=== PATIENT | male | born 1985 | race Two or more races ===

== ENCOUNTER 2017-03-24 22:51 | Inpatient (IN) | payer OTHER ==
[2017-03-24 23:06] VITALS: BMI 28.3
--- NOTE | 2017-03-24 23:34 | HP ---
COWS - Scale Resting Pulse: 1= SD 81-100 Sweatin=Flushed/Facial Moisture Restless Observation: 5= Unable to Sit Still Pupil Size: 1= Pupils >than Normal Bone or Joint Aches: 4=Acute Joint/Muscle Pain Runny Nose/ Eye Tearin= Nasal Congestion GI Upset > 30mins: 1= Stomach Cramp Tremor Observation: 2= Slight Tremor Visible Yawning Observation: 1= 1-2x During Session Anxiety or Irritability: 2=Irritable/Anxious Goose Flesh Skin: 0=Smooth Skin COWS Score: 20 CIWA Score - CIWA Score Nausea/Vomitin Muscle Tremors: 4-Moderate,w/Arms Extend Anxiety: 4-Mod. Anxious/Guarded Agitation: 4-Moderately Restless Paroxysmal Sweats: 3 Orientation: 1-Uncertain about Date Tacttile Disturbances: 2-Mild Itch/Numbness/Burn Auditory Disturbances: 0-None Visual Disturbances: 0-None Headache: 1-Very Mild CIWA-Ar Total Score: 21 Admission ROS BHS - HPI Chief Complaint: C/O WITHDRAWAL SX'S . SEEKING DETOX TXMENT FOR BENZO AN OPIATE DEPENDENCE. Allergies/Adverse Reactions: Allergies Allergy/AdvReac Type Severity Reaction Status Date / Time No Known Allergies Allergy Verified 03/24/17 23:18 History of Present Illness: 31 Y.O. MALE WITH 2 YEARS HX/O XANAX AND PERCOCET DEPENDENCE SEEKING ADMISSION TO DETOX. THIS IS CLIENT FIRST TIME IN SUBSTANCE ABUSE TXMENT. REFERRED BY HIS MOTHER. DENIES LEGAL ISSUES. DENIES ANY CLEAN TIME. Exam Limitations: No Limitations - Ebola screening Have you traveled outside of the country in the last 21 days: No Have you had contact with anyone from an Ebola affected area: No Have you been sick,other than usual withdrawal symptoms: No Do you have a fever: No - Review of Systems Constitutional: Chills, Loss of Appetite, Malaise, Night Sweats EENT: reports: Dental Problems (DENTAL PAIN) Respiratory: reports: No Symptoms reported Cardiac: reports: No Symptoms Reported GI: reports: Poor Appetite, Poor Fluid Intake, Abdominal cramping : reports: Other (DIFFICULT INTIATING VOID) Musculoskeletal: reports: Back Pain Integumentary: reports: No Symptoms Reported Neuro: reports: Seizure Endocrine: reports: No Symptoms Reported Hematology: reports: No Symptoms Reported Psychiatric: reports: Anxious, Depressed Other Systems: Reviewed and Negative Patient History - Patient Medical History Hx Anemia: No Hx Asthma: No Hx Chronic Obstructive Pulmonary Disease (COPD): No Hx Cancer: No Hx Cardiac Disorders: No Hx Congestive Heart Failure: No Hx Hypertension: No Hx Hypercholesterolemia: No Hx Pacemaker: No HX Cerebrovascular Accident: No Hx Seizures: No Hx Dementia: No Hx Diabetes: No Hx Gastrointestinal Disorders: No Hx Liver Disease: No Hx Genitourinary Disorders: No Hx Sexually Transmitted Disorders: No Hx Renal Disease (ESRD): No Hx Thyroid Disease: No Hx Human Immunodeficiency Virus (HIV): No Hx Hepatitis C: No Hx Depression: Yes (NO TXMENT) Hx Suicide Attempt: No Hx Bipolar Disorder: No Hx Schizophrenia: No Other Medical History: DENIES - Patient Surgical History Past Surgical History: Yes Other Surgical History: R INGUINAL HERNIA REPAIR Anesthesia Reaction: No - PPD History Previous Implant?: No Implanted On Prior [facility] Admission?: No PPD to be Administered?: Yes - Smoking Cessation Smoking history: Current every day smoker Have you smoked in the past 12 months: Yes Aproximately how many cigarettes per day: 5 Cigars Per Day: 0 Hx Chewing Tobacco Use: No Initiated information on smoking cessation: Yes 'Breaking Loose' booklet given: 03/24/17 - Substance & Tx. History Hx Alcohol Use: No Hx Substance Use: Yes Substance Use Type: Opiates (PERCOCET), Tranquilizers (XANAX) Hx Substance Use Treatment: No - Substances Abused Alprazolam (Xanax) Route: Oral Frequency: Daily Amount used: Xanax 20mg Age of first use: 30 Date of Last Use: 03/24/17 Percocet Route: Oral Frequency: Daily Amount used: 100mg Age of first use: 29 Date of Last Use: 03/24/17 Family Disease History - Family Disease History Family History: Denies Admission Physical Exam BHS - Vital Signs Vital Signs: Vital Signs - 24 hr 03/24/17 22:57 Temperature 97.8 F Pulse Rate 92 H Respiratory 18 Rate Blood Pressure 122/53 - Physical General Appearance: Yes: Appropriately Dressed, Mild Distress, Tremorous, Irritable, Sweating HEENTM: Yes: EOMI, Normocephalic, Pharynx Normal, Nasal Congestion Respiratory: Yes: Chest Non-Tender, Lungs Clear, Normal Breath Sounds, No Respiratory Distress, No Accessory Muscle Use Neck: Yes: No masses,lesions,Nodules, Supple, Trachea in good position Breast: Yes: Breast Exam Deferred Cardiology: Yes: Regular Rhythm, S1, S2, Tachycardia Abdominal: Yes: Non Tender, Soft, Protuberent Genitourinary: Yes: Within Normal Limits Back: Yes: Normal Inspection Musculoskeletal: Yes: full range of Motion, Gait Steady Extremities: Yes: Normal Capillary Refill, Normal Range of Motion, Non-Tender, Tremors Neurological: Yes: Alert, Motor Strength 5/5 Integumentary: Yes: Normal Color, Warm, Moist Lymphatic: Yes: Within Normal Limits - Diagnostic (1) Opioid dependence with withdrawal Current Visit: Yes Status: Chronic (2) Sedative, hypnotic or anxiolytic dependence with withdrawal, uncomplicated Current Visit: Yes Status: Chronic (3) Nicotine dependence Current Visit: Yes Status: Chronic Qualifiers: Nicotine product type: cigarettes Substance use status: uncomplicated Qualified Code(s): F17.210 - Nicotine dependence, cigarettes, uncomplicated Cleared for Admission [facility] - Detox or Rehab [facility] Level of Care: Medically Managed Detox Regimen/Protocol: Methadone/Valium [facility] Breath Alcohol Content Breath Alcohol Content: 0 Urine Drug Screen - Results Drug Screen Negative: No Urine Drug Screen Results: BZO-Benzodiazepines, OXY-Oxycodone
[2017-03-25] MEDS ORDERED: IBUPROFEN 400 MG TABLET (FP) PO PRN (00:32)
[2017-03-25] MEDS ORDERED: P-EPHED 60MG/TRIPROLIDI 2.5MG TABLET PO PRN (00:32)
[2017-03-25] MEDS ORDERED: NICOTINE POLACRILEX 2 MG GUM BC PRN (00:32)
[2017-03-25] MEDS ORDERED: LOPERAMIDE HCL 2 MG CAPSULE PO PRN (00:32)
[2017-03-25] MEDS ORDERED: METHADONE HCL 10 MG TABLET (FOR DETOX USE ONLY) PO ONE ×3 (00:32→23:00)
[2017-03-25] MEDS ORDERED: diazePAM 5 MG TABLET PO ONE (00:32)
[2017-03-25] MEDS ORDERED: diazePAM 5 MG TABLET PO PRN (00:32)
[2017-03-25] MEDS ORDERED: MENTHOL/PHENOL 1 EACH UD MM PRN (00:32)
[2017-03-25] MEDS ORDERED: ACETAMINOPHEN 325 MG TABLET (FP) PO PRN (00:32)
[2017-03-25] MEDS ORDERED: MAGNESIUM CITRATE 300 ML BOTTLE PO PRN (00:32)
[2017-03-25] MEDS ORDERED: MAGNESIUM HYDROX 2400MG/30ML ORAL SUSPENSION 30 ML CUP PO PRN (00:32)
[2017-03-25] MEDS ORDERED: MAG HYDROX/AL HYDROX/SIMETH 30 ML UNIT-DOSE CUP PO PRN (00:32)
[2017-03-25] MEDS ORDERED: guaiFENesin/D-METHORPHAN HB 10 ML UNIT-DOSE CUPS PO PRN (00:32)
[2017-03-25] MEDS: hydrOXYzine PAMOATE 50 MG CAPSULE (FP) PO PRN (03:18)
[2017-03-25] MEDS: diazePAM 5 MG TABLET PO SCH ×2 (05:42→15:00)
[2017-03-25 10:48] LABS: URINE APPEARANCE CLEAR; URINE BILIRUBIN NEGATIVE (NEGATIVE); URINE BLOOD NEGATIVE (NEGATIVE); URINE COLOR LTYELLOW; URINE GLUCOSE (UA) NEGATIVE (NEGATIVE); URINE KETONE NEGATIVE (NEGATIVE); URINE LEUK ESTERASE NEGATIVE (NEGATIVE); URINE NITRITE NEGATIVE (NEGATIVE); URINE PROTEIN NEGATIVE (NEGATIVE); URINE UROBILINOGEN NEGATIVE mg/dL (0.2-1.0)
[2017-03-25] MEDS: PRENATAL VITAMINS W/ FOLIC ACID TABLET (FP) PO SCH (11:00)
[2017-03-25] MEDS: NICOTINE 14 MG/24 HOURS TOPICAL PATCH TD SCH (11:00)
--- NOTE | 2017-03-25 11:16 | PN ---
[facility] CIWA - CIWA Score Nausea/Vomitin Muscle Tremors: 3 Anxiety: 3 Agitation: 3 Paroxysmal Sweats: 1-Minimal Palms Moist Orientation: 0-Oriented Tacttile Disturbances: 1-Very Mild Itch/Numbness Auditory Disturbances: 1-Very Mild Visual Disturbances: 0-None Headache: 2-Mild CIWA-Ar Total Score: 17 BHS COWS - Scale Resting Pulse: 0= [place] 80 or Below Sweatin= Chills/Flushing Restless Observation: 3= Extraneous Movement Pupil Size: 1= Pupils >than Normal Bone or Joint Aches: 2= Severe Diffuse Aches Runny Nose/ Eye Tearin= Runny Nose/Eyes GI Upset > 30mins: 2= Nausea/Diarrhea Tremor Observation of Outstretched Hands: 2= Slight Tremor Visible Yawning Observation: 1= 1-2x During Session Anxiety or Irritability: 2=Irritable/Anxious Goose Flesh Skin: 0=Smooth Skin COWS Score: 16 S Progress Note (SOAP) Subjective: alert,irritable,anxious,interrupted sleep,tremor,pain in the body and back Objective: 03/25/17 11:15 Vital Signs Temperature 97.5 F L 03/25/17 09:45 Pulse Rate 73 03/25/17 09:45 Respiratory Rate 20 03/25/17 09:45 Blood Pressure 116/68 03/25/17 09:45 O2 Sat by Pulse Oximetry (%) Laboratory Last Values Urine Color Ltyellow 03/25/17 08:00 Urine Appearance Clear 03/25/17 08:00 Urine pH 5.0 (5.0-8.0) 03/25/17 08:00 Ur Specific [place] 1.020 (1.001-1.035) 03/25/17 08:00 Urine Protein Negative (NEGATIVE) 03/25/17 08:00 Urine Glucose (UA) Negative (NEGATIVE) 03/25/17 08:00 Urine Ketones Negative (NEGATIVE) 03/25/17 08:00 Urine Blood Negative (NEGATIVE) 03/25/17 08:00 Urine Nitrite Negative (NEGATIVE) 03/25/17 08:00 Urine Bilirubin Negative (NEGATIVE) 03/25/17 08:00 Urine Urobilinogen Negative mg/dL (0.2-1.0) 03/25/17 08:00 labs pending Assessment: 03/25/17 11:15 withdrawal symptom Plan: continue detox
[2017-03-26] MEDS: diazePAM 5 MG TABLET PO SCH ×4 (00:08→22:20)
[2017-03-26] MEDS: THIAMINE HCL 100 MG TABLET (FP) PO SCH ×2 (00:08→22:20)
[2017-03-26] MEDS ORDERED: ALBUTEROL SO4 2.5/IPRATROPIUM 0.5 INH SOL 3 ML VIAL.NEB. NEB PRN (02:31)
--- NOTE | 2017-03-26 08:09 | CONSULT ---
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 Refer to addiction counselor's note for further information Medical History: Significantt for history of right inguinal herna repair. Smoked 5 cigarettes daily Psychiatric History: Denies history of previous psychiatric treatment. However reports taking Xanax 2 mg po HS prescribed by his primary care physician for insomnia. Physical/Sexual Abuse/Trauma History: Denies history of verbal, physical or seual abuse as well as DV relationship Additional Comment: Reports history of 2 previous misdemeanor arrests. Denies being on probation at present Mental Status Exam - Mental Status Exam Alert and Oriented to: Time, Place, Person Cognitive Function: Fair Patient Appearance: Well Groomed Mood: Hopeful, Euthymic Patient Behavior: Cooperative Speech Pattern: Clear Voice Loudness: Normal Thought Process: Intact, Goal Oriented Thought Disorder: Not Present Hallucinations: Denies Suicidal Ideation: Denies Homicidal Ideation: Denies Insight/Judgement: Poor Sleep: Poorly Appetite: Good Muscle strength/Tone: Normal Gait/Station: Normal Psychiatric Findings - Problem List ([place] 1, 2,3) (1) Substance-induced sleep disorder Current Visit: Yes Status: Acute (2) Opioid dependence with withdrawal Current Visit: Yes Status: Chronic (3) Sedative, hypnotic or anxiolytic dependence with withdrawal, uncomplicated Current Visit: Yes Status: Chronic (4) Nicotine dependence Current Visit: Yes Status: Chronic Qualifiers: Nicotine product type: cigarettes Substance use status: uncomplicated Qualified Code(s): F17.210 - Nicotine dependence, cigarettes, uncomplicated - Initial Treatment Plan Initial Treatment Plan: 1) Start Ambien 10 mg po HS prn for insomnia. 2) Continue inpatient detoxification
--- NOTE | 2017-03-26 09:10 | PN ---
S CIWA - CIWA Score Nausea/Vomitin-No Nausea/No Vomiting Muscle Tremors: 4-Moderate,w/Arms Extend Anxiety: 3 Agitation: 2 Paroxysmal Sweats: 1-Minimal Palms Moist Orientation: 0-Oriented Tacttile Disturbances: 1-Very Mild Itch/Numbness Auditory Disturbances: 0-None Visual Disturbances: 0-None Headache: 0-None Present CIWA-Ar Total Score: 11 BHS COWS - Scale Resting Pulse: 0= [place] 80 or Below Sweatin= Chills/Flushing Restless Observation: 1= Difficult to Sit Still Pupil Size: 0= Normal to Room Light Bone or Joint Aches: 2= Severe Diffuse Aches Runny Nose/ Eye Tearin= Nasal Congestion GI Upset > 30mins: 1= Stomach Cramp Tremor Observation of Outstretched Hands: 2= Slight Tremor Visible Yawning Observation: 2= >3x During Session Anxiety or Irritability: 2=Irritable/Anxious Goose Flesh Skin: 0=Smooth Skin COWS Score: 12 S Progress Note (SOAP) Subjective: tremor anxiety sweat general body ache irritable Objective: 03/26/17 09:21 Vital Signs Temperature 97.7 F 03/26/17 06:00 Pulse Rate 66 03/26/17 06:00 Respiratory Rate 18 03/26/17 06:00 Blood Pressure 105/66 03/26/17 06:00 O2 Sat by Pulse Oximetry (%) Laboratory Last Values Urine Color Ltyellow 03/25/17 08:00 Urine Appearance Clear 03/25/17 08:00 Urine pH 5.0 (5.0-8.0) 03/25/17 08:00 Ur Specific [place] 1.020 (1.001-1.035) 03/25/17 08:00 Urine Protein Negative (NEGATIVE) 03/25/17 08:00 Urine Glucose (UA) Negative (NEGATIVE) 03/25/17 08:00 Urine Ketones Negative (NEGATIVE) 03/25/17 08:00 Urine Blood Negative (NEGATIVE) 03/25/17 08:00 Urine Nitrite Negative (NEGATIVE) 03/25/17 08:00 Urine Bilirubin Negative (NEGATIVE) 03/25/17 08:00 Urine Urobilinogen Negative mg/dL (0.2-1.0) 03/25/17 08:00 Ur Leukocyte Esterase Negative (NEGATIVE) 03/25/17 08:00 Hepatitis C Antibody 0.1 s/co ratio (0.0-0.9) 03/25/17 08:00 HIV 1&2 Antibody Screen Negative 03/25/17 08:00 HIV P24 Antigen Negative 03/25/17 08:00 lab noted Assessment: 03/26/17 09:21 withdrawal sx Plan: continue detox
[2017-03-26] MEDS ORDERED: METHADONE HCL 10 MG TABLET (FOR DETOX USE ONLY) PO SCH (10:00)
[2017-03-26 10:47] LABS: CHLORIDE 102 mmol/L (98-107); SODIUM 137 mmol/L (136-145)
[2017-03-26] MEDS: PRENATAL VITAMINS W/ FOLIC ACID TABLET (FP) PO SCH (10:47)
[2017-03-26] MEDS: NICOTINE 14 MG/24 HOURS TOPICAL PATCH TD SCH (10:48)
[2017-03-26 10:57] LABS: ALBUMIN 3.4 g/dl (3.4-5.0); ALK PHOS 59 U/L (45-117); ANION GAP 6 (8-16); BILIRUBIN,TOTAL 0.4 mg/dL (0.2-1.0); BLOOD UREA NITROGEN 22 mg/dL (7-18); CALCIUM 8.2 mg/dL (8.5-10.1); CO2 29 mmol/L (21-32); GLUCOSE,RANDOM 108 mg/dL (74-106); SGOT/AST 12 U/L (15-37); SGPT/ALT 33 U/L (12-78); TOT PROT 6.3 g/dl (6.4-8.2)
[2017-03-26 11:30] LABS: HEMATOCRIT 42.7 % (35.4-49); HEMOGLOBIN 14.5 GM/dL (11.7-16.9); MCH 31.2 pg (25.7-33.7); MCHC 33.9 g/dl (32.0-35.9); MEAN PLT VOLUME 8.5 fl (7.5-11.1); PLATELET COUNT 191 K/MM3 (134-434); RBC 4.65 M/mm3 (4.00-5.60); RDW 12.9 % (11.9-15.9); WHITE BLOOD COUNT 7.6 K/mm3 (4.0-10.0)
[2017-03-26] MEDS: ZOLPIDEM TARTRATE 5 MG TABLET PO PRN (22:20)
--- NOTE | 2017-03-27 10:07 | PN ---
BHS Progress Note (SOAP) Subjective: nausea, anxiety, tremors, insomnia, Objective: 03/27/17 10:07 Vital Signs - 8 hr 03/27/17 03/27/17 03:30 06:16 Temperature 97.7 F Pulse Rate 74 Respiratory 18 18 Rate Blood Pressure 120/61 Laboratory Tests 03/25/17 03/25/17 03/25/17 08:00 08:00 08:00 WBC RBC Hgb Hct MCV MCH MCHC RDW Plt Count MPV Sodium Potassium Chloride Carbon Dioxide Anion Gap BUN Creatinine Creat Clearance w eGFR Random Glucose Calcium Total Bilirubin AST ALT Alkaline Phosphatase Total Protein Albumin Urine Color Ltyellow Urine Appearance Clear Urine pH 5.0 Ur Specific [place] 1.020 Urine Protein Negative Urine Glucose (UA) Negative Urine Ketones Negative Urine Blood Negative Urine Nitrite Negative Urine Bilirubin Negative Urine Urobilinogen Negative Ur Leukocyte Esterase Negative RPR Titer Hepatitis C Antibody 0.1 HIV 1&2 Antibody Screen Negative HIV P24 Antigen Negative 03/26/17 03/26/17 03/26/17 06:10 06:10 06:10 WBC 7.6 RBC 4.65 Hgb 14.5 Hct 42.7 MCV 92.0 MCH 31.2 MCHC 33.9 RDW 12.9 Plt Count 191 MPV 8.5 Sodium 137 Potassium 4.0 Chloride 102 Carbon Dioxide 29 Anion Gap 6 L BUN 22 H Creatinine 1.0 Creat Clearance w eGFR > 60 Random Glucose 108 H Calcium 8.2 L Total Bilirubin 0.4 AST 12 L ALT 33 Alkaline Phosphatase 59 Total Protein 6.3 L Albumin 3.4 Urine Color Urine Appearance Urine pH Ur Specific [place] Urine Protein Urine Glucose (UA) Urine Ketones Urine Blood Urine Nitrite Urine Bilirubin Urine Urobilinogen Ur Leukocyte Esterase RPR Titer Nonreactive Hepatitis C Antibody HIV 1&2 Antibody Screen HIV P24 Antigen Assessment: 03/27/17 10:07 withdraawl sx, cont detox, fluids, encourage ambulation
[2017-03-27] MEDS: METHADONE HCL 5 MG TABLET (FOR DETOX USE ONLY) PO SCH (10:34)
[2017-03-27] MEDS: PRENATAL VITAMINS W/ FOLIC ACID TABLET (FP) PO SCH (10:35)
[2017-03-27] MEDS: diazePAM 5 MG TABLET PO SCH ×2 (10:35→22:25)
[2017-03-27] MEDS: NICOTINE 14 MG/24 HOURS TOPICAL PATCH TD SCH (10:56)
[2017-03-27] MEDS: THIAMINE HCL 100 MG TABLET (FP) PO SCH (22:26)
[2017-03-27] MEDS: ZOLPIDEM TARTRATE 5 MG TABLET PO PRN (22:26)
--- NOTE | 2017-03-28 01:57 | EKG ---
Test Reason : Blood Pressure : / mmHG Vent. Rate : 073 BPM Atrial Rate : 073 BPM P-R Int : 144 ms QRS Dur : 092 ms QT Int : 388 ms P-R-T Axes : 043 012 018 degrees QTc Int : 427 ms NORMAL SINUS RHYTHM NORMAL ECG NO PREVIOUS ECGS AVAILABLE Confirmed by JENA DIAZ MD ([id number]) on 03/28/2017 1:56:59 AM Referred By: SHANEL CASTILLO Confirmed By:JENA DIAZ MD
[2017-03-28] MEDS: PRENATAL VITAMINS W/ FOLIC ACID TABLET (FP) PO SCH (10:14)
[2017-03-28] MEDS: METHADONE HCL 5 MG TABLET (FOR DETOX USE ONLY) PO SCH (10:15)
[2017-03-28] MEDS: hydrOXYzine PAMOATE 50 MG CAPSULE (FP) PO PRN (10:15)
[2017-03-28] MEDS: diazePAM 5 MG TABLET PO SCH ×2 (10:15→22:11)
[2017-03-28] MEDS: NICOTINE 14 MG/24 HOURS TOPICAL PATCH TD SCH (10:15)
--- NOTE | 2017-03-28 11:36 | PN ---
BHS Progress Note (SOAP) Subjective: Lightheadedness, stomach ache, body ache, interrupted sleep Objective: 03/28/17 11:34 Last Vital Signs Temp Pulse Resp BP Pulse Ox 98.2 F 96 H 18 130/91 03/28/17 10:21 03/28/17 10:21 03/28/17 10:21 03/28/17 10:21 Laboratory Tests 03/25/17 03/25/17 03/25/17 08:00 08:00 08:00 WBC RBC Hgb Hct MCV MCH MCHC RDW Plt Count MPV Sodium Potassium Chloride Carbon Dioxide Anion Gap BUN Creatinine Creat Clearance w eGFR Random Glucose Calcium Total Bilirubin AST ALT Alkaline Phosphatase Total Protein Albumin Urine Color Ltyellow Urine Appearance Clear Urine pH 5.0 Ur Specific [place] 1.020 Urine Protein Negative Urine Glucose (UA) Negative Urine Ketones Negative Urine Blood Negative Urine Nitrite Negative Urine Bilirubin Negative Urine Urobilinogen Negative Ur Leukocyte Esterase Negative RPR Titer Hepatitis C Antibody 0.1 HIV 1&2 Antibody Screen Negative HIV P24 Antigen Negative 03/26/17 03/26/17 03/26/17 06:10 06:10 06:10 WBC 7.6 RBC 4.65 Hgb 14.5 Hct 42.7 MCV 92.0 MCH 31.2 MCHC 33.9 RDW 12.9 Plt Count 191 MPV 8.5 Sodium 137 Potassium 4.0 Chloride 102 Carbon Dioxide 29 Anion Gap 6 L BUN 22 H Creatinine 1.0 Creat Clearance w eGFR > 60 Random Glucose 108 H Calcium 8.2 L Total Bilirubin 0.4 AST 12 L ALT 33 Alkaline Phosphatase 59 Total Protein 6.3 L Albumin 3.4 Urine Color Urine Appearance Urine pH Ur Specific [place] Urine Protein Urine Glucose (UA) Urine Ketones Urine Blood Urine Nitrite Urine Bilirubin Urine Urobilinogen Ur Leukocyte Esterase RPR Titer Nonreactive Hepatitis C Antibody HIV 1&2 Antibody Screen HIV P24 Antigen Labs noted Assessment: 03/28/17 11:36 Withdrawal symptoms Plan: Continue detox
[2017-03-28] MEDS ORDERED: diphenhydrAMINE HCL 50 MG CAPSULE PO PRN (12:34)
[2017-03-28] MEDS: THIAMINE HCL 100 MG TABLET (FP) PO SCH (22:11)
[2017-03-28] MEDS: ZOLPIDEM TARTRATE 5 MG TABLET PO PRN (22:11)
[2017-03-28] MEDS ORDERED: BACITRACIN 0.9 GM PACKET TP ONE (22:53)
--- NOTE | 2017-03-28 22:59 | PN ---
JESSICA Progress Note Note: received nurse call that the patient has a lump in his back needed to be seen right lower back 5 mm round erythema none tender immobile cyst noted, no pus no bleed inflammation cyst warm compression qid bacitracin oint qid recommend hand washing and keep area clean avoid irritation
[2017-03-29] MEDS ORDERED: diazePAM 5 MG TABLET PO SCH (10:00)
[2017-03-29] MEDS ORDERED: METHADONE HCL 10 MG TABLET (FOR DETOX USE ONLY) PO SCH (10:00)
--- NOTE | 2017-03-29 10:09 | PN ---
BHS Progress Note (SOAP) Subjective: interrupted sleep, sweats , wants a flu vax Objective: 03/29/17 10:07 Vital Signs Temperature 98.1 F 03/29/17 06:05 Pulse Rate 62 03/29/17 06:05 Respiratory Rate 16 03/29/17 06:05 Blood Pressure 124/79 03/29/17 06:05 O2 Sat by Pulse Oximetry (%) Vital Signs Temperature 98.1 F 03/29/17 06:05 Pulse Rate 62 03/29/17 06:05 Respiratory Rate 16 03/29/17 06:05 Blood Pressure 124/79 03/29/17 06:05 O2 Sat by Pulse Oximetry (%) Laboratory Tests 03/25/17 03/25/17 03/25/17 08:00 08:00 08:00 WBC RBC Hgb Hct MCV MCH MCHC RDW Plt Count MPV Sodium Potassium Chloride Carbon Dioxide Anion Gap BUN Creatinine Creat Clearance w eGFR Random Glucose Calcium Total Bilirubin AST ALT Alkaline Phosphatase Total Protein Albumin Urine Color Ltyellow Urine Appearance Clear Urine pH 5.0 Ur Specific [place] 1.020 Urine Protein Negative Urine Glucose (UA) Negative Urine Ketones Negative Urine Blood Negative Urine Nitrite Negative Urine Bilirubin Negative Urine Urobilinogen Negative Ur Leukocyte Esterase Negative RPR Titer Hepatitis C Antibody 0.1 HIV 1&2 Antibody Screen Negative HIV P24 Antigen Negative 03/26/17 03/26/17 03/26/17 06:10 06:10 06:10 WBC 7.6 RBC 4.65 Hgb 14.5 Hct 42.7 MCV 92.0 MCH 31.2 MCHC 33.9 RDW 12.9 Plt Count 191 MPV 8.5 Sodium 137 Potassium 4.0 Chloride 102 Carbon Dioxide 29 Anion Gap 6 L BUN 22 H Creatinine 1.0 Creat Clearance w eGFR > 60 Random Glucose 108 H Calcium 8.2 L Total Bilirubin 0.4 AST 12 L ALT 33 Alkaline Phosphatase 59 Total Protein 6.3 L Albumin 3.4 Urine Color Urine Appearance Urine pH Ur Specific [place] Urine Protein Urine Glucose (UA) Urine Ketones Urine Blood Urine Nitrite Urine Bilirubin Urine Urobilinogen Ur Leukocyte Esterase RPR Titer Nonreactive Hepatitis C Antibody HIV 1&2 Antibody Screen HIV P24 Antigen pt aox3 in nad Assessment: 03/29/17 10:08 withdrawal sx's Plan: cont. detox increase fluids flu vax d/c in am
[2017-03-29] MEDS: NICOTINE 14 MG/24 HOURS TOPICAL PATCH TD SCH (10:10)
[2017-03-29] MEDS: PRENATAL VITAMINS W/ FOLIC ACID TABLET (FP) PO SCH (10:10)
[2017-03-29] MEDS: hydrOXYzine PAMOATE 50 MG CAPSULE (FP) PO PRN (10:10)
[2017-03-29] MEDS ORDERED: FLU VACCINE QUAD 60 MCG/0.5 ML (MDV 17-18) IM ONE (11:00)
[2017-03-29 11:03] VITALS: BP 125/85; PULSE 96; TEMP 97.9
--- NOTE | 2017-03-29 11:04 | DS ---
[facility] Detox Discharge Summary Admission Date: 03/24/17 Discharge Date: 03/29/17 - History Present History: Opioid Dependence, Sedative Dependence - Physical Exam Results Vital Signs: Vital Signs Temperature 98.1 F 03/29/17 06:05 Pulse Rate 62 03/29/17 06:05 Respiratory Rate 16 03/29/17 06:05 Blood Pressure 124/79 03/29/17 06:05 O2 Sat by Pulse Oximetry (%) - Treatment Hospital Course: Detox Protocol Followed - Diagnosis (1) Opioid dependence with withdrawal Current Visit: Yes Status: Chronic (2) Sedative, hypnotic or anxiolytic dependence with withdrawal, uncomplicated Current Visit: Yes Status: Chronic (3) Nicotine dependence Current Visit: Yes Status: Chronic Qualifiers: Nicotine product type: cigarettes Substance use status: uncomplicated Qualified Code(s): F17.210 - Nicotine dependence, cigarettes, uncomplicated - AMA Did Patient Leave Against Medical Advice: Yes (feels good does'nt want to stay.)
[2017-03-30] MEDS ORDERED: METHADONE HCL 5 MG TABLET (FOR DETOX USE ONLY) PO SCH (06:00)
== END 2017-03-29 11:30 | disposition left against medical advice (07) | DRG 770 ==
LOC: YASAS 22:51 → Y6N 23:35
PROVIDERS: ADMIT Internal Medicine; ATTEND Internal Medicine
PROC: HZ2ZZZZ Detoxification Services for Substance Abuse Treatment (ICD-10-PCS; principal; 2017-03-24)
DX: F11.23 Opioid dependence with withdrawal (principal); F13.230 Sedative, hypnotic or anxiolytic dependence with withdrawal, uncomplicated; F17.210 Nicotine dependence, cigarettes, uncomplicated; F19.282 Other psychoactive substance dependence with psychoactive substance-induced sleep disorder; R00.0 Tachycardia, unspecified; L72.9 Follicular cyst of the skin and subcutaneous tissue, unspecified
CPT/HCPCS: 36415; 80053; 81003; 85027; 86593; 86803; 87389; 90688; 93005; 93010; G0008

== ENCOUNTER 2017-06-10 11:44 | Inpatient (IN) | payer OTHER ==
[2017-06-10 17:01] VITALS: BMI 29.0
--- NOTE | 2017-06-10 19:17 | HP ---
COWS - Scale Resting Pulse: 1= [place] 81-100 Sweatin=Flushed/Facial Moisture Restless Observation: 3= Extraneous Movement Pupil Size: 2= Moderately Dilated Bone or Joint Aches: 2= Severe Diffuse Aches Runny Nose/ Eye Tearin= Runny Nose/Eyes GI Upset > 30mins: 3= Vomiting/Diarrhea Tremor Observation: 2= Slight Tremor Visible Yawning Observation: 2= >3x During Session Anxiety or Irritability: 2=Irritable/Anxious Goose Flesh Skin: 0=Smooth Skin COWS Score: 21 Admission ROS S - HPI Chief Complaint: I NEED HELP TO STOP USING PERCOCET AND XANAX Allergies/Adverse Reactions: Allergies Allergy/AdvReac Type Severity Reaction Status Date / Time No Known Allergies Allergy Verified 06/10/17 17:01 History of Present Illness: THIS 32 YEARS OLD MALE WITH PERCOCET AND XANAX,SEEKING DETOX,WITHDRAWAL SYMPTOM, LAST DETOX [facility] 03/24/17 TO 03/29/17 INSOMNIA NICOTINE DEPENDENCE NO SIGNIFICANT PERIOD OF SOBRIETY WEIGHT LOSS Exam Limitations: No Limitations - Ebola screening Have you traveled outside of the country in the last 21 days: No (N) Have you had contact with anyone from an Ebola affected area: No Have you been sick,other than usual withdrawal symptoms: No Do you have a fever: No - Review of Systems Constitutional: No Symptoms Reported, Malaise, Night Sweats, Changes in sleep, Unintentional Wgt. Loss EENT: reports: Tearing, Nose Congestion Respiratory: reports: No Symptoms reported Cardiac: reports: Chest Pain GI: reports: Diarrhea, Nausea, Vomiting, Abdominal cramping : reports: No Symptoms Reported Musculoskeletal: reports: Back Pain, Joint Pain, Muscle Pain Integumentary: reports: Dryness Neuro: reports: Headache, Tremors Endocrine: reports: No Symptoms Reported Hematology: reports: No Symptoms Reported Psychiatric: reports: No Sypmtoms Reported, Judgement Intact, Mood/Affect Appropiate, Orientated x3 (INSOMNIA) Patient History - Patient Medical History Hx Anemia: No Hx Asthma: No Hx Chronic Obstructive Pulmonary Disease (COPD): No Hx Cancer: No Hx Cardiac Disorders: No Hx Congestive Heart Failure: No Hx Hypertension: No Hx Hypercholesterolemia: No Hx Pacemaker: No HX Cerebrovascular Accident: No Hx Seizures: No Hx Dementia: No Hx Diabetes: No Hx Gastrointestinal Disorders: No Hx Liver Disease: No Hx Genitourinary Disorders: No Hx Sexually Transmitted Disorders: No Hx Renal Disease (ESRD): No Hx Thyroid Disease: No Hx Human Immunodeficiency Virus (HIV): No (LAST [facility] 01/22/17) Hx Hepatitis C: No Hx Depression: Yes (NO TREATMENT) Hx Suicide Attempt: No Hx Bipolar Disorder: No Hx Schizophrenia: No Other Medical History: NO SUIDAL,NO HOMICIDAL - Patient Surgical History Past Surgical History: Yes Other Surgical History: R INGUINAL HERNIA REPAIR aT AGE OF 76 YEARS OLD Anesthesia Reaction: No - PPD History Previous Implant?: Yes Documented Results: Negative w/proof Date: 03/27/17 Results: 0 MM PPD to be Administered?: No - Smoking Cessation Smoking history: Current every day smoker Have you smoked in the past 12 months: Yes Aproximately how many cigarettes per day: 20 Cigars Per Day: 0 Hx Chewing Tobacco Use: No Initiated information on smoking cessation: Yes 'Breaking Loose' booklet given: 06/10/17 - Substance & Tx. History Hx Alcohol Use: No Hx Substance Use: Yes Substance Use Type: Opiates, Tranquilizers Hx Substance Use Treatment: Yes ([facility] 03/24/17 TO 03/29/17) - Substances Abused PERCOCET Route: Oral Frequency: Daily Amount used: 30/10MG PILLS 5 TABS Age of first use: 31 Date of Last Use: 06/10/17 XANAX Route: Oral Frequency: Daily Amount used: 1 PILL 2 MGS Age of first use: 31 Date of Last Use: 06/09/17 Family Disease History - Family Disease History Family History: Denies Admission Physical Exam [facility] - Vital Signs Vital Signs: Vital Signs - 24 hr 06/10/17 18:46 Temperature 98.7 F Pulse Rate 87 Respiratory 18 Rate Blood Pressure 158/92 - Physical General Appearance: Yes: Moderate Distress, Tremorous, Irritable, Sweating, Anxious HEENTM: Yes: Normocephalic, KSENIA, Pharynx Normal Respiratory: Yes: Lungs Clear, Normal Breath Sounds, No Respiratory Distress Neck: Yes: Within Normal Limits, Supple, Trachea in good position Breast: Yes: Within Normal Limits Cardiology: Yes: Within Normal Limits, Regular Rhythm, Regular Rate, S1, S2 Abdominal: Yes: Normal Bowel Sounds, Non Tender, Flat, Soft, Organomegaly Genitourinary: Yes: Within Normal Limits Back: Yes: Normal Inspection, Muscle Spasm Musculoskeletal: Yes: Within Normal Limits, full range of Motion, Back pain, Joint Stiffness, Muscle Pain Extremities: Yes: Within Normal Limits, Tremors Neurological: Yes: casting assistant II-XII NML intact, Alert, Motor Strength 5/5 Integumentary: Yes: Within Normal Limits, Dry Lymphatic: Yes: Within Normal Limits - Diagnostic (1) Opioid dependence with withdrawal Current Visit: No Status: Chronic (2) Substance-induced sleep disorder Current Visit: No Status: Acute (3) Nicotine dependence Current Visit: No Status: Chronic Qualifiers: Nicotine product type: cigarettes Substance use status: uncomplicated Qualified Code(s): F17.210 - Nicotine dependence, cigarettes, uncomplicated (4) Sedative, hypnotic or anxiolytic dependence with withdrawal, uncomplicated Current Visit: No Status: Chronic Cleared for Admission [facility] - Detox or Rehab [facility] Level of Care: Medically Managed Detox Regimen/Protocol: Methadone [facility] Breath Alcohol Content Breath Alcohol Content: 0 Urine Drug Screen - Results Drug Screen Negative: No Urine Drug Screen Results: OXY-Oxycodone
[2017-06-10] MEDS ORDERED: hydrOXYzine PAMOATE 25 MG CAPSULE (FP) PO PRN (19:33)
[2017-06-10] MEDS ORDERED: MENTHOL/PHENOL 1 EACH UD MM PRN (19:33)
[2017-06-10] MEDS ORDERED: ACETAMINOPHEN 325 MG TABLET (FP) PO PRN (19:33)
[2017-06-10] MEDS ORDERED: LOPERAMIDE HCL 2 MG CAPSULE PO PRN (19:33)
[2017-06-10] MEDS ORDERED: P-EPHED 60MG/TRIPROLIDI 2.5MG TABLET PO PRN (19:33)
[2017-06-10] MEDS ORDERED: guaiFENesin/D-METHORPHAN HB 10 ML UNIT-DOSE CUPS PO PRN (19:33)
[2017-06-10] MEDS ORDERED: MAG HYDROX/AL HYDROX/SIMETH 30 ML UNIT-DOSE CUP PO PRN (19:33)
[2017-06-10] MEDS ORDERED: IBUPROFEN 400 MG TABLET (FP) PO PRN (19:33)
[2017-06-10] MEDS ORDERED: METHADONE HCL 10 MG TABLET (FOR DETOX USE ONLY) PO ONE ×2 (19:33→23:00)
[2017-06-10] MEDS ORDERED: MAGNESIUM CITRATE 300 ML BOTTLE PO PRN (19:33)
[2017-06-10] MEDS ORDERED: NICOTINE POLACRILEX 2 MG GUM BC PRN (19:33)
[2017-06-10] MEDS ORDERED: MAGNESIUM HYDROX 2400MG/30ML ORAL SUSPENSION 30 ML CUP PO PRN (19:33)
[2017-06-10] MEDS: diazePAM 5 MG TABLET PO PRN (20:38)
[2017-06-10] MEDS: THIAMINE HCL 100 MG TABLET (FP) PO SCH (22:40)
[2017-06-11] MEDS: diazePAM 5 MG TABLET PO PRN ×3 (07:05→21:50)
--- NOTE | 2017-06-11 08:07 | CONSULT ---
[facility] Psychiatric Consult - Data Date of interview: 06/11/17 Admission source: Self-referred Identifying data: Mr Andres is a 31 years old single Citizen Of [place] male , father of a 10 years old daughter, unemployed, domiciled living with his mother seeking detox treatment for percocet and xanax Substance Abuse History: Reports history of percocet and xanax use. Refer to addiction counselor's note for further information Medical History: Significant for history of surgery for right inguinal herna repair. Smoked 5 cigarettes daily Psychiatric History: Denies history of previous psychiatric treatment. Physical/Sexual Abuse/Trauma History: Denies history of verbal, physical or sexual abuse as well as DV relationship. No service Additional Comment: Reports history of 2 previous misdemeanor arrests. Denies being on probation at present Mental Status Exam - Mental Status Exam Alert and Oriented to: Time, Place, Person Patient Appearance: Well Groomed Mood: Hopeful, Euthymic Patient Behavior: Cooperative Speech Pattern: Clear Voice Loudness: Normal Thought Process: Intact, Goal Oriented Thought Disorder: Not Present Hallucinations: Denies Suicidal Ideation: Denies Homicidal Ideation: Denies Insight/Judgement: Poor Sleep: Poorly Appetite: Fair Muscle strength/Tone: Normal Gait/Station: Normal Psychiatric Findings - Problem List ([place] 1, 2,3) (1) Substance-induced sleep disorder Current Visit: Yes Status: Acute (2) Opioid dependence with withdrawal Current Visit: No Status: Acute (3) Sedative, hypnotic or anxiolytic dependence with withdrawal, uncomplicated Current Visit: No Status: Acute (4) Nicotine dependence Current Visit: No Status: Chronic Qualifiers: Nicotine product type: cigarettes Substance use status: uncomplicated Qualified Code(s): F17.210 - Nicotine dependence, cigarettes, uncomplicated - Initial Treatment Plan Initial Treatment Plan: 1) Start Trazadone 100 mg po HS. 2) Continue inpatient detoxification
[2017-06-11] MEDS ORDERED: METHADONE HCL 10 MG TABLET (FOR DETOX USE ONLY) PO ONE (10:00)
[2017-06-11 10:26] LABS: HEMATOCRIT 46.6 % (35.4-49); HEMOGLOBIN 16.3 GM/dL (11.7-16.9); MCH 31.9 pg (25.7-33.7); MEAN CELL VOLUME 91.3 fl (80-96); MEAN PLT VOLUME 8.4 fl (7.5-11.1); PLATELET COUNT 196 K/MM3 (134-434); RBC 5.11 M/mm3 (4.00-5.60); RDW 12.4 % (11.9-15.9); WHITE BLOOD COUNT 6.7 K/mm3 (4.0-10.0)
[2017-06-11 10:37] LABS: URINE APPEARANCE TURBID; URINE BILIRUBIN NEGATIVE (NEGATIVE); URINE BLOOD NEGATIVE (NEGATIVE); URINE COLOR RED; URINE GLUCOSE (UA) NEGATIVE (NEGATIVE); URINE KETONE NEGATIVE (NEGATIVE); URINE LEUK ESTERASE NEGATIVE (NEGATIVE); URINE NITRITE NEGATIVE (NEGATIVE); URINE PROTEIN NEGATIVE (NEGATIVE); URINE UROBILINOGEN NEGATIVE mg/dL (0.2-1.0)
[2017-06-11 10:39] LABS: ALBUMIN 3.8 g/dl (3.4-5.0); ANION GAP 5 (8-16); BLOOD UREA NITROGEN 17 mg/dL (7-18); CALCIUM 8.5 mg/dL (8.5-10.1); CHLORIDE 102 mmol/L (98-107); CO2 32 mmol/L (21-32); GLUCOSE,RANDOM 95 mg/dL (74-106); POTASSIUM 4.2 mmol/L (3.5-5.1); SODIUM 139 mmol/L (136-145)
[2017-06-11] MEDS: PRENATAL VITAMINS W/ FOLIC ACID TABLET (FP) PO SCH (10:40)
[2017-06-11 10:43] LABS: ALK PHOS 69 U/L (45-117); BILIRUBIN,TOTAL 0.5 mg/dL (0.2-1.0); CREATININE 0.9 mg/dL (0.7-1.3); SGOT/AST 14 U/L (15-37); SGPT/ALT 23 U/L (12-78); TOT PROT 6.8 g/dl (6.4-8.2)
--- NOTE | 2017-06-11 14:28 | EKG ---
Test Reason : Blood Pressure : / mmHG Vent. Rate : 071 BPM Atrial Rate : 071 BPM P-R Int : 144 ms QRS Dur : 098 ms QT Int : 392 ms P-R-T Axes : -22 010 030 degrees QTc Int : 425 ms NORMAL SINUS RHYTHM POOR R WAVE PROGRESSION Confirmed by MD ELE, TIM ([id number]) on 06/11/2017 2:27:58 PM Referred By: Confirmed By:TIM MARLOW MD
--- NOTE | 2017-06-11 17:09 | PN ---
BHS COWS - Scale Resting Pulse: 1= [place] 81-100 Sweatin=Flushed/Facial Moisture Restless Observation: 3= Extraneous Movement Pupil Size: 0= Normal to Room Light Bone or Joint Aches: 2= Severe Diffuse Aches Runny Nose/ Eye Tearin= Runny Nose/Eyes GI Upset > 30mins: 3= Vomiting/Diarrhea Tremor Observation of Outstretched Hands: 2= Slight Tremor Visible Yawning Observation: 0= None Anxiety or Irritability: 2=Irritable/Anxious Goose Flesh Skin: 0=Smooth Skin COWS Score: 17 BHS Progress Note (SOAP) Subjective: Chills, sweating, tremor, interrupted sleep Objective: 06/11/17 17:08 Last Vital Signs Temp Pulse Resp BP Pulse Ox 97.1 F L 81 20 128/78 06/11/17 14:35 06/11/17 14:35 06/11/17 14:35 06/11/17 14:35 Laboratory Tests 06/11/17 06/11/17 06/11/17 08:00 08:00 08:00 WBC 6.7 RBC 5.11 Hgb 16.3 D Hct 46.6 MCV 91.3 MCH 31.9 MCHC 35.0 RDW 12.4 Plt Count 196 MPV 8.4 Sodium 139 Potassium 4.2 Chloride 102 Carbon Dioxide 32 Anion Gap 5 L BUN 17 D Creatinine 0.9 Creat Clearance w eGFR > 60 Random Glucose 95 Calcium 8.5 Total Bilirubin 0.5 D AST 14 L ALT 23 D Alkaline Phosphatase 69 Total Protein 6.8 Albumin 3.8 Urine Color Urine Appearance Urine pH Ur Specific [place] Urine Protein Urine Glucose (UA) Urine Ketones Urine Blood Urine Nitrite Urine Bilirubin Urine Urobilinogen Ur Leukocyte Esterase RPR Titer Nonreactive 06/11/17 09:30 WBC RBC Hgb Hct MCV MCH MCHC RDW Plt Count MPV Sodium Potassium Chloride Carbon Dioxide Anion Gap BUN Creatinine Creat Clearance w eGFR Random Glucose Calcium Total Bilirubin AST ALT Alkaline Phosphatase Total Protein Albumin Urine Color Red Urine Appearance Turbid Urine pH 5.0 Ur Specific [place] 1.023 Urine Protein Negative Urine Glucose (UA) Negative Urine Ketones Negative Urine Blood Negative Urine Nitrite Negative Urine Bilirubin Negative Urine Urobilinogen Negative Ur Leukocyte Esterase Negative RPR Titer Labs noted Assessment: 06/11/17 17:09 Withdrawal symptoms Plan: Continue detox Encouraged to drink more water for hydration
[2017-06-11] MEDS: THIAMINE HCL 100 MG TABLET (FP) PO SCH (21:50)
[2017-06-11] MEDS: traZODone HCL 100 MG TABLET (FP) PO SCH (21:50)
[2017-06-12] MEDS ORDERED: METHADONE HCL 5 MG TABLET (FOR DETOX USE ONLY) PO ONE (10:00)
[2017-06-12] MEDS: diazePAM 5 MG TABLET PO PRN ×3 (10:35→22:30)
[2017-06-12] MEDS: PRENATAL VITAMINS W/ FOLIC ACID TABLET (FP) PO SCH (10:35)
--- NOTE | 2017-06-12 14:37 | PN ---
BHS COWS - Scale Resting Pulse: 1= [place] 81-100 Sweatin=Flushed/Facial Moisture Restless Observation: 1= Difficult to Sit Still Pupil Size: 0= Normal to Room Light Bone or Joint Aches: 1= Mild Discomfort Runny Nose/ Eye Tearin= Nasal Congestion GI Upset > 30mins: 1= Stomach Cramp Tremor Observation of Outstretched Hands: 2= Slight Tremor Visible Yawning Observation: 1= 1-2x During Session Anxiety or Irritability: 2=Irritable/Anxious Goose Flesh Skin: 0=Smooth Skin COWS Score: 12 BHS Progress Note (SOAP) Subjective: sweats shakes abd cramp Objective: 06/12/17 14:36 A & O x 3 Vital Signs Temperature 98.4 F 06/12/17 14:01 Pulse Rate 92 H 06/12/17 14:01 Respiratory Rate 20 06/12/17 14:01 Blood Pressure 126/82 06/12/17 14:01 O2 Sat by Pulse Oximetry (%) Assessment: 06/12/17 14:36 withdrawal sx Plan: continue detox
[2017-06-12] MEDS: traZODone HCL 100 MG TABLET (FP) PO SCH (22:30)
[2017-06-12] MEDS: THIAMINE HCL 100 MG TABLET (FP) PO SCH (22:30)
[2017-06-13] MEDS ORDERED: METHADONE HCL 5 MG TABLET (FOR DETOX USE ONLY) PO ONE (10:00)
[2017-06-13] MEDS: PRENATAL VITAMINS W/ FOLIC ACID TABLET (FP) PO SCH (10:44)
[2017-06-13] MEDS: diazePAM 5 MG TABLET PO PRN ×2 (10:44→19:30)
--- NOTE | 2017-06-13 11:57 | PN ---
BHS Progress Note (SOAP) Subjective: Sweating, Chills, Stomach Cramping, Fatigue, Body Aches, Interrupted Sleep, Anxious. Objective: PATIENT A & O X 2 (UNCERTAIN ABOUT CURRENT DAY / DATE). NO ACUTE DISTRESS. 06/13/17 11:54 Vital Signs Temperature 96.2 F L 06/13/17 09:14 Pulse Rate 85 06/13/17 09:14 Respiratory Rate 18 06/13/17 09:14 Blood Pressure 124/88 06/13/17 09:14 O2 Sat by Pulse Oximetry (%) Laboratory Tests 06/11/17 06/11/17 06/11/17 08:00 08:00 08:00 WBC 6.7 RBC 5.11 Hgb 16.3 D Hct 46.6 MCV 91.3 MCH 31.9 MCHC 35.0 RDW 12.4 Plt Count 196 MPV 8.4 Sodium 139 Potassium 4.2 Chloride 102 Carbon Dioxide 32 Anion Gap 5 L BUN 17 D Creatinine 0.9 Creat Clearance w eGFR > 60 Random Glucose 95 Calcium 8.5 Total Bilirubin 0.5 D AST 14 L ALT 23 D Alkaline Phosphatase 69 Total Protein 6.8 Albumin 3.8 Urine Color Urine Appearance Urine pH Ur Specific [place] Urine Protein Urine Glucose (UA) Urine Ketones Urine Blood Urine Nitrite Urine Bilirubin Urine Urobilinogen Ur Leukocyte Esterase RPR Titer Nonreactive 06/11/17 09:30 WBC RBC Hgb Hct MCV MCH MCHC RDW Plt Count MPV Sodium Potassium Chloride Carbon Dioxide Anion Gap BUN Creatinine Creat Clearance w eGFR Random Glucose Calcium Total Bilirubin AST ALT Alkaline Phosphatase Total Protein Albumin Urine Color Red Urine Appearance Turbid Urine pH 5.0 Ur Specific [place] 1.023 Urine Protein Negative Urine Glucose (UA) Negative Urine Ketones Negative Urine Blood Negative Urine Nitrite Negative Urine Bilirubin Negative Urine Urobilinogen Negative Ur Leukocyte Esterase Negative RPR Titer LABS NOTED. Assessment: 06/13/17 11:55 WITHDRAWAL SYMPTOMS. Plan: CONTINUE DETOX. INCREASE DAILY PO FLUID INTAKE.
--- NOTE | 2017-06-13 15:05 | PN ---
JESSICA Progress Note Note: Psychiatry Attending's note : Approached by patient. Issue : insomnia. Sleep hygiene discussed. Ambien added to regimen. At patient's request. Ambien 10 mg po hs prn. Side effects/benefits discussed with patient. Mr Villalobos is informed of risk of parasomnias. Agrees with this careplan.Will follow response.
[2017-06-13] MEDS: THIAMINE HCL 100 MG TABLET (FP) PO SCH (22:27)
[2017-06-13] MEDS: traZODone HCL 100 MG TABLET (FP) PO SCH (22:27)
[2017-06-13] MEDS: ZOLPIDEM TARTRATE 5 MG TABLET PO PRN (22:27)
[2017-06-14] MEDS ORDERED: METHADONE HCL 10 MG TABLET (FOR DETOX USE ONLY) PO ONE (10:00)
[2017-06-14] MEDS: PRENATAL VITAMINS W/ FOLIC ACID TABLET (FP) PO SCH (10:37)
[2017-06-14] MEDS ORDERED: FLU VACCINE QUAD 60 MCG/0.5 ML (MDV 17-18) IM ONE (15:49)
--- NOTE | 2017-06-14 15:50 | PN ---
BHS Progress Note (SOAP) Subjective: Sweating, H/A, Stomach Cramping, Anxious, Tremors. Objective: PATIENT A & O X 2 (UNCERTAIN ABOUT CURRENT DAY/ DATE) PATIENT OBSERVED AMBULATING ON UNIT. NO ACUTE DISTRESS. 06/14/17 15:49 Vital Signs Temperature 96.9 F L 06/14/17 13:24 Pulse Rate 113 H 06/14/17 13:24 Respiratory Rate 20 06/14/17 13:24 Blood Pressure 123/81 06/14/17 13:24 O2 Sat by Pulse Oximetry (%) Laboratory Tests 06/11/17 06/11/17 06/11/17 08:00 08:00 08:00 WBC 6.7 RBC 5.11 Hgb 16.3 D Hct 46.6 MCV 91.3 MCH 31.9 MCHC 35.0 RDW 12.4 Plt Count 196 MPV 8.4 Sodium 139 Potassium 4.2 Chloride 102 Carbon Dioxide 32 Anion Gap 5 L BUN 17 D Creatinine 0.9 Creat Clearance w eGFR > 60 Random Glucose 95 Calcium 8.5 Total Bilirubin 0.5 D AST 14 L ALT 23 D Alkaline Phosphatase 69 Total Protein 6.8 Albumin 3.8 Urine Color Urine Appearance Urine pH Ur Specific [place] Urine Protein Urine Glucose (UA) Urine Ketones Urine Blood Urine Nitrite Urine Bilirubin Urine Urobilinogen Ur Leukocyte Esterase RPR Titer Nonreactive 06/11/17 09:30 WBC RBC Hgb Hct MCV MCH MCHC RDW Plt Count MPV Sodium Potassium Chloride Carbon Dioxide Anion Gap BUN Creatinine Creat Clearance w eGFR Random Glucose Calcium Total Bilirubin AST ALT Alkaline Phosphatase Total Protein Albumin Urine Color Red Urine Appearance Turbid Urine pH 5.0 Ur Specific [place] 1.023 Urine Protein Negative Urine Glucose (UA) Negative Urine Ketones Negative Urine Blood Negative Urine Nitrite Negative Urine Bilirubin Negative Urine Urobilinogen Negative Ur Leukocyte Esterase Negative RPR Titer LABS NOTED. Assessment: 06/14/17 15:49 WITHDRAWAL SYMPTOMS. Plan: CONTINUE DETOX.
[2017-06-14] MEDS: THIAMINE HCL 100 MG TABLET (FP) PO SCH (22:28)
[2017-06-14] MEDS: traZODone HCL 100 MG TABLET (FP) PO SCH (22:28)
[2017-06-14] MEDS: ZOLPIDEM TARTRATE 5 MG TABLET PO PRN (22:29)
[2017-06-15] MEDS ORDERED: METHADONE HCL 5 MG TABLET (FOR DETOX USE ONLY) PO ONE (06:00)
[2017-06-15 06:22] VITALS: BP 107/64; PULSE 80; TEMP 96.9
[2017-06-15] MEDS: PRENATAL VITAMINS W/ FOLIC ACID TABLET (FP) PO SCH (10:41)
--- NOTE | 2017-06-15 17:07 | PN ---
BHS Progress Note (SOAP) Subjective: Patient denies any current Detox symptoms and reports that he is feeling well overall. Objective: PATIENT A & O X 3, OBSERVED AMBULATING ON UNIT. NO ACUTE DISTRESS. 06/15/17 17:05 Vital Signs Temperature 96.9 F L 06/15/17 06:22 Pulse Rate 80 06/15/17 06:22 Respiratory Rate 18 06/15/17 06:22 Blood Pressure 107/64 06/15/17 06:22 O2 Sat by Pulse Oximetry (%) Laboratory Tests 06/11/17 06/11/17 06/11/17 08:00 08:00 08:00 WBC 6.7 RBC 5.11 Hgb 16.3 D Hct 46.6 MCV 91.3 MCH 31.9 MCHC 35.0 RDW 12.4 Plt Count 196 MPV 8.4 Sodium 139 Potassium 4.2 Chloride 102 Carbon Dioxide 32 Anion Gap 5 L BUN 17 D Creatinine 0.9 Creat Clearance w eGFR > 60 Random Glucose 95 Calcium 8.5 Total Bilirubin 0.5 D AST 14 L ALT 23 D Alkaline Phosphatase 69 Total Protein 6.8 Albumin 3.8 Urine Color Urine Appearance Urine pH Ur Specific [place] Urine Protein Urine Glucose (UA) Urine Ketones Urine Blood Urine Nitrite Urine Bilirubin Urine Urobilinogen Ur Leukocyte Esterase RPR Titer Nonreactive 06/11/17 09:30 WBC RBC Hgb Hct MCV MCH MCHC RDW Plt Count MPV Sodium Potassium Chloride Carbon Dioxide Anion Gap BUN Creatinine Creat Clearance w eGFR Random Glucose Calcium Total Bilirubin AST ALT Alkaline Phosphatase Total Protein Albumin Urine Color Red Urine Appearance Turbid Urine pH 5.0 Ur Specific [place] 1.023 Urine Protein Negative Urine Glucose (UA) Negative Urine Ketones Negative Urine Blood Negative Urine Nitrite Negative Urine Bilirubin Negative Urine Urobilinogen Negative Ur Leukocyte Esterase Negative RPR Titer LABS NOTED. Assessment: 06/15/17 17:05 COMPLETION OF DETOX PROTOCOL. PATIENT IS MEDICALLY STABLE AT THIS TIME. 06/15/17 17:06 Plan: PATIENT SCHEDULED FOR DISCHARGE FROM DETOX TODAY. PATIENT REPORTS THAT HE WILL GO HOME TO LOOK FOR EMPLOYMENT.
--- NOTE | 2017-06-15 17:08 | DS ---
[facility] Detox Discharge Summary Admission Date: 06/10/17 Discharge Date: 06/15/17 - History Present History: Opioid Dependence, Sedative Dependence Additional Comments: PATIENT REPORTS THAT HE WILL RETURN HOME SO THAT HE MAY LOOK FOR EMPLOYMENT. PATIENT ADVISED TO CONSIDER LOCAL 12-STEP / NA OUTPATIENT SUPPORT GROUPS FOR AFTERCARE. PATIENT WAS DISCHARGED FROM DETOX UNIT IN STABLE MEDICAL CONDITION. Pertinent Past History: Nicotine Dependence, Insomnia, Depression. - Physical Exam Results Vital Signs: Vital Signs Temperature 96.9 F L 06/15/17 06:22 Pulse Rate 80 06/15/17 06:22 Respiratory Rate 18 06/15/17 06:22 Blood Pressure 107/64 06/15/17 06:22 O2 Sat by Pulse Oximetry (%) Pertinent Admission Physical Exam Findings: WITHDRAWAL SYMPTOMS. Laboratory Tests 06/11/17 06/11/17 06/11/17 08:00 08:00 08:00 WBC 6.7 RBC 5.11 Hgb 16.3 D Hct 46.6 MCV 91.3 MCH 31.9 MCHC 35.0 RDW 12.4 Plt Count 196 MPV 8.4 Sodium 139 Potassium 4.2 Chloride 102 Carbon Dioxide 32 Anion Gap 5 L BUN 17 D Creatinine 0.9 Creat Clearance w eGFR > 60 Random Glucose 95 Calcium 8.5 Total Bilirubin 0.5 D AST 14 L ALT 23 D Alkaline Phosphatase 69 Total Protein 6.8 Albumin 3.8 Urine Color Urine Appearance Urine pH Ur Specific [place] Urine Protein Urine Glucose (UA) Urine Ketones Urine Blood Urine Nitrite Urine Bilirubin Urine Urobilinogen Ur Leukocyte Esterase RPR Titer Nonreactive 06/11/17 09:30 WBC RBC Hgb Hct MCV MCH MCHC RDW Plt Count MPV Sodium Potassium Chloride Carbon Dioxide Anion Gap BUN Creatinine Creat Clearance w eGFR Random Glucose Calcium Total Bilirubin AST ALT Alkaline Phosphatase Total Protein Albumin Urine Color Red Urine Appearance Turbid Urine pH 5.0 Ur Specific [place] 1.023 Urine Protein Negative Urine Glucose (UA) Negative Urine Ketones Negative Urine Blood Negative Urine Nitrite Negative Urine Bilirubin Negative Urine Urobilinogen Negative Ur Leukocyte Esterase Negative RPR Titer LABS NOTED. - Treatment Hospital Course: Detox Protocol Followed, Detoxed Safely, Responded well, Discharged Condition Good Patient has Accepted a Rehab Referral to: PT GOING HOME,ADVISED TO CONSIDER LOCAL 12-STEP/NA OUTPATIENT SUPPORT GROUP - Medication Discharge Medications: Ambulatory Orders traZODone HCL [Desyrel -] 100 mg PO HS #30 tablet 06/11/17 - Diagnosis (1) Opioid dependence with withdrawal Status: Acute (2) Sedative, hypnotic or anxiolytic dependence with withdrawal, uncomplicated Status: Acute (3) Substance-induced sleep disorder Status: Acute (4) Nicotine dependence Status: Chronic Qualifiers: Nicotine product type: cigarettes Substance use status: uncomplicated Qualified Code(s): F17.210 - Nicotine dependence, cigarettes, uncomplicated - AMA Did Patient Leave Against Medical Advice: No
== END 2017-06-15 11:25 | disposition home or self-care (01) | DRG 773 ==
LOC: YASAS 11:44 → Y3N 17:06
PROVIDERS: ADMIT Internal Medicine; ATTEND Internal Medicine
PROC: HZ2ZZZZ Detoxification Services for Substance Abuse Treatment (ICD-10-PCS; principal; 2017-06-10)
DX: F11.23 Opioid dependence with withdrawal (principal); F13.230 Sedative, hypnotic or anxiolytic dependence with withdrawal, uncomplicated; F17.210 Nicotine dependence, cigarettes, uncomplicated; F19.282 Other psychoactive substance dependence with psychoactive substance-induced sleep disorder; Z87.898 Personal history of other specified conditions
CPT/HCPCS: 36415; 80053; 81003; 85027; 86593; 93005; 93010

== ENCOUNTER 2017-08-04 13:45 | Inpatient (IN) | payer OTHER ==
[2017-08-04 13:56] VITALS: BMI 21.9
[2017-08-04] MEDS ORDERED: SODIUM CHLORIDE 0.9% 500 ML INFUS.BAG IV ONE (14:25)
--- NOTE | 2017-08-04 14:27 | PDOC ---
History of Present Illness - General History Source: Patient, Parent(s) Exam Limitations: No Limitations - History of Present Illness Initial Comments: This is a 32 YOM with h/o prescription drug abuse (states only Xanax) who was brought to the ED by his mother c/o decreased responsiveness and intermittently blue hands in the setting of increased Xanax use recently. The patient notes having taken 10 mg Xanax earlier today but cannot say at what time. He denies using any other drugs or alcohol recently. He states that his only additional symptoms have been chills and "a dazed feeling" and he denies any headache, neck pain, chest pain, palpitations, cough, sore throat, SOB, abdominal pain, nausea, vomiting, diarrhea, constipation, painful urination, or other symptoms. He denies suicidal or homicidal thoughts. His mother notes that he has previously been to [facility] for detox. She states that he has additionally been drinking alcohol but this conflicts with the patient's report. The patient lives between his brother's and his mother's homes. <Casandra Adame - Last Filed: 08/04/17 22:04> <Marlin Denny - Last Filed: 08/08/17 09:58> - General Chief Complaint: Substance Abuse Stated Complaint: Overdose Time Seen by Provider: 08/04/17 14:00 Past History - Past Medical History Anemia: No Asthma: No Cancer: No Cardiac Disorders: No CVA: No COPD: No CHF: No Dementia: No Diabetes: No GI Disorders: No Disorders: No HTN: No Hypercholesterolemia: No Liver Disease: No Seizures: No Thyroid Disease: No Other medical history: DENIES. - Surgical History Abdominal Surgery: Yes (hernia) - Suicide/Smoking/Psychosocial Hx Smoking History: Current every day smoker Have you smoked in the past 12 months: Yes Number of Cigarettes Smoked Daily: 4 Cigars Per Day: 0 Information on smoking cessation initiated: No 'Breaking Loose' booklet given: 06/10/17 Hx Alcohol Use: Yes (1 LITER OF "HARD LIQUOIR" WEEKLY) Drug/Substance Use Hx: Yes (HYDROCODONE-10 MG,2 A DAY ON AVERAGE, ALSO XANAX NIGHTLY-ALL NOT PRESCRIBED) Substance Use Type: Alcohol, Opiates, Tranquilizers Hx Substance Use Treatment: Yes ([facility] 03/24/17 TO 03/29/17) <Casandra Adame - Last Filed: 08/04/17 22:04> <Marlin Denny - Last Filed: 08/08/17 09:58> - Past Medical History Allergies/Adverse Reactions: Allergies Allergy/AdvReac Type Severity Reaction Status Date / Time No Known Allergies Allergy Verified 08/07/17 21:41 Home Medications: Ambulatory Orders NK [No Known Home Medication] 08/04/17 Review of Systems - Review of Systems Able to Perform ROS?: Yes Constitutional: Yes: Chills, Other ("dazed feeling"). No: Fever, Unexplained wgt Loss HEENTM: No: Nose Congestion, Throat Pain Respiratory: No: Cough, Shortness of Breath Cardiac (ROS): No: Chest Pain, Palpitations ABD/GI: No: Constipated, Diarrhea, Nausea, Vomiting : No: Burning, Dysuria Musculoskeletal: No: Back Pain, Neck Pain Integumentary: No: Bruising, Rash Neurological: No: Headache, Numbness, Tingling, Weakness, Dizziness Psychiatric: Yes: Depression, Other (substance use) Endocrine: No: Unexplained Weight Gain, Unexplained Weight Loss <Casandra Adame - Last Filed: 08/04/17 22:04> *Physical Exam - Vital Signs Last Vital Signs Temp Pulse Resp BP Pulse Ox 98.4 F 78 15 144/92 96 08/04/17 13:48 08/04/17 13:48 08/04/17 13:48 08/04/17 13:48 08/04/17 13:48 - Physical Exam General Appearance: Yes: Nourished, Appropriately Dressed, Other (laying in hospital bed with eyes closed, provides 1-2 word answers to questions with some speech latency). No: Apparent Distress HEENT: positive: EOMI, Normal Voice, Hearing Grossly Normal. negative: Scleral Icterus (R), Scleral Icterus (L), Nasal Congestion Neck: positive: Trachea midline, Supple, Thyromegaly (slight). negative: Tender , Rigid Respiratory/Chest: positive: Lungs Clear, Normal Breath Sounds. negative: Respiratory Distress, Crackles, Rhonchi, Stridor, Wheezing Cardiovascular: positive: Regular Rhythm, Regular Rate, S1, S2. negative: Edema , JVD, Murmur Gastrointestinal/Abdominal: positive: Normal Bowel Sounds, Soft. negative: Tender, Organomegaly, Pulsatile Mass, Guarding Musculoskeletal: positive: Normal Inspection. negative: Decreased Range of Motion, Vertebral Tenderness Extremity: positive: Normal Capillary Refill, Normal Inspection, Normal Range of Motion. negative: Tender, Cyanosis Integumentary: positive: Normal Color, Dry, Warm. 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 negative: EOM Palsy, Facial Droop , Numbness, Sensory Deficit, Confused, Disoriented <Casandra Adame - Last Filed: 08/04/17 22:04> - Vital Signs Last Vital Signs Temp Pulse Resp BP Pulse Ox 98.9 F 78 14 131/89 99 08/04/17 19:45 08/04/17 19:45 08/04/17 19:45 08/04/17 19:45 08/04/17 19:45 <Marlin Denny - Last Filed: 08/08/17 09:58> ED Treatment Course - LABORATORY CBC & Chemistry Diagram: 08/04/17 14:50 08/04/17 14:24 <Casandra Adame - Last Filed: 08/04/17 22:04> - LABORATORY CBC & Chemistry Diagram: 08/05/17 06:20 08/05/17 06:20 - ADDITIONAL ORDERS Additional order review: Laboratory Results 08/04/17 08/04/17 08/04/17 18:30 18:30 16:00 Sodium Potassium Chloride Carbon Dioxide Anion Gap BUN Creatinine Creat Clearance w eGFR Random Glucose Calcium Total Bilirubin AST ALT Alkaline Phosphatase Total Protein Albumin TSH Urine Color Yellow Urine Appearance Clear Urine pH 6.0 Ur Specific [place] 1.027 Urine Protein Negative Urine Glucose (UA) Negative Urine Ketones Negative Urine Blood 2+ H Urine Nitrite Negative Urine Bilirubin Negative Urine Urobilinogen Normal Ur Leukocyte Esterase Negative Urine WBC (Auto) 1 Urine RBC (Auto) 15 Ur Epithelial Cells 1 Urine Mucus Few Salicylates Opiates Screen Negative Negative Methadone Screen Negative Negative Acetaminophen Barbiturate Screen Negative Negative Phencyclidine Screen Negative Negative Ur Amphetamines Screen Negative Negative MDMA (Ecstasy) Screen Negative Negative Benzodiazepines Screen Negative Negative Cocaine Screen Negative Negative U Marijuana (THC) Screen Negative Negative Alcohol, Quantitative 08/04/17 08/04/17 08/04/17 16:00 14:50 14:24 Sodium 141 Potassium 3.9 Chloride 105 Carbon Dioxide 30 Anion Gap 6 L BUN 18 Creatinine 1.2 D Creat Clearance w eGFR > 60 Random Glucose 115 H D Calcium 9.4 Total Bilirubin 0.7 D AST 14 L ALT 28 D Alkaline Phosphatase 87 D Total Protein 8.5 H D Albumin 4.7 D TSH 0.70 Urine Color Yellow Urine Appearance Clear Urine pH 6.0 Ur Specific [place] 1.027 Urine Protein Negative Urine Glucose (UA) Negative Urine Ketones Negative Urine Blood 2+ H Urine Nitrite Negative Urine Bilirubin Negative Urine Urobilinogen Negative Ur Leukocyte Esterase Negative Urine WBC (Auto) 1 Urine RBC (Auto) 15 Ur Epithelial Cells Rare Urine Mucus Few Salicylates < 1.700 Opiates Screen Methadone Screen Acetaminophen < amr Barbiturate Screen Phencyclidine Screen Ur Amphetamines Screen MDMA (Ecstasy) Screen Benzodiazepines Screen Cocaine Screen U Marijuana (THC) Screen Alcohol, Quantitative < 5.0 08/04/17 14:50 RBC 5.63 H MCV 90.9 MCHC 35.0 RDW 12.8 MPV 8.1 Neutrophils % 71.5 Lymphocytes % 19.7 Monocytes % 8.1 Eosinophils % 0.4 Basophils % 0.3 - Medications Given in the ED: ED Medications Discontinued Medications Generic Name Dose Route Start Last Admin Trade Name Pan PRN Reason Stop Dose Admin Sodium Chloride 1,000 ml 08/04/17 14:25 08/04/17 14:30 Normal Saline - IV 08/04/17 14:26 1,000 ml ONCE ONE Administration <Marlin Denny - Last Filed: 08/08/17 09:58> Medical Decision Making - Medical Decision Making Patient p/w lethargy in the setting of 10mg Xanax dose. Initial Vital Signs Temp Pulse Resp BP Pulse Ox 98.4 F 78 15 144/92 96 08/04/17 13:48 08/04/17 13:48 08/04/17 13:48 08/04/17 13:48 08/04/17 13:48 Exam: A bit lethargic but no distress, answering questions appropriately in 1-2 word answers, neuro exam wnl Mental status exam: denies self to harm attempt, SI/HI, plan, or SI/HI history DDX IBNLT: overdose, overuse, medication interaction, change in medication metabolism, coingestion, etc W/U ordered: CBCD CMP TSH UA UCx UDS Tylenol/Salicylate/EtOH level EKG Head CT. 08/04/17 15:00 Dr. Zhong and I discuss the case with ED psychiatric social worker supervisor and she will speak with the patient and mother. EKG: NSR, rate of 66, no ischemic changes. Laboratory Tests 08/04/17 08/04/17 08/04/17 14:24 14:50 14:50 WBC 12.0 H D RBC 5.63 H Hgb 17.9 H Hct 51.2 H MCV 90.9 MCH 31.8 MCHC 35.0 RDW 12.8 Plt Count 308 D MPV 8.1 Neutrophils % 71.5 Lymphocytes % 19.7 Monocytes % 8.1 Eosinophils % 0.4 Basophils % 0.3 Sodium 141 Potassium 3.9 Chloride 105 Carbon Dioxide 30 Anion Gap 6 L BUN 18 Creatinine 1.2 D Creat Clearance w eGFR > 60 Random Glucose 115 H D Calcium 9.4 Total Bilirubin 0.7 D AST 14 L ALT 28 D Alkaline Phosphatase 87 D Total Protein 8.5 H D Albumin 4.7 D TSH 0.70 Urine Color Urine Appearance Urine pH Ur Specific [place] Urine Protein Urine Glucose (UA) Urine Ketones Urine Blood Urine Nitrite Urine Bilirubin Urine Urobilinogen Ur Leukocyte Esterase Urine WBC (Auto) Urine RBC (Auto) Ur Epithelial Cells Urine Mucus Salicylates < 1.700 Opiates Screen Methadone Screen Acetaminophen < amr Barbiturate Screen Phencyclidine Screen Ur Amphetamines Screen MDMA (Ecstasy) Screen Benzodiazepines Screen Cocaine Screen U Marijuana (THC) Screen Alcohol, Quantitative < 5.0 08/04/17 08/04/17 08/04/17 16:00 16:00 18:30 WBC RBC Hgb Hct MCV MCH MCHC RDW Plt Count MPV Neutrophils % Lymphocytes % Monocytes % Eosinophils % Basophils % Sodium Potassium Chloride Carbon Dioxide Anion Gap BUN Creatinine Creat Clearance w eGFR Random Glucose Calcium Total Bilirubin AST ALT Alkaline Phosphatase Total Protein Albumin TSH Urine Color Yellow Urine Appearance Clear Urine pH 6.0 Ur Specific [place] 1.027 Urine Protein Negative Urine Glucose (UA) Negative Urine Ketones Negative Urine Blood 2+ H Urine Nitrite Negative Urine Bilirubin Negative Urine Urobilinogen Negative Ur Leukocyte Esterase Negative Urine WBC (Auto) 1 Urine RBC (Auto) 15 Ur Epithelial Cells Rare Urine Mucus Few Salicylates Opiates Screen Negative Negative Methadone Screen Negative Negative Acetaminophen Barbiturate Screen Negative Negative Phencyclidine Screen Negative Negative Ur Amphetamines Screen Negative Negative MDMA (Ecstasy) Screen Negative Negative Benzodiazepines Screen Negative Negative Cocaine Screen Negative Negative U Marijuana (THC) Screen Negative Negative Alcohol, Quantitative 08/04/17 18:30 WBC RBC Hgb Hct MCV MCH MCHC RDW Plt Count MPV Neutrophils % Lymphocytes % Monocytes % Eosinophils % Basophils % Sodium Potassium Chloride Carbon Dioxide Anion Gap BUN Creatinine Creat Clearance w eGFR Random Glucose Calcium Total Bilirubin AST ALT Alkaline Phosphatase Total Protein Albumin TSH Urine Color Yellow Urine Appearance Clear Urine pH 6.0 Ur Specific [place] 1.027 Urine Protein Negative Urine Glucose (UA) Negative Urine Ketones Negative Urine Blood 2+ H Urine Nitrite Negative Urine Bilirubin Negative Urine Urobilinogen Normal Ur Leukocyte Esterase Negative Urine WBC (Auto) 1 Urine RBC (Auto) 15 Ur Epithelial Cells 1 Urine Mucus Few Salicylates Opiates Screen Methadone Screen Acetaminophen Barbiturate Screen Phencyclidine Screen Ur Amphetamines Screen MDMA (Ecstasy) Screen Benzodiazepines Screen Cocaine Screen U Marijuana (THC) Screen Alcohol, Quantitative Head CT: An equivocal subtle nonspecific 1 cm right frontal subcortical hypodense focus is seen - ? artifact due to partial volume averaging, acute/ chronic vascular disease, encephalomalacia, subtle mass lesion. Additional evauation utilizing enhanced MRI or CT is suggested 08/04/17 17:40 The patient is up in the bathroom and giving a urine sample. He does walk with little assistance His mother is with him just outside the bathroom. I update the mother on the results of the tests so far. I explain that the patient has a slightly elevated white blood count. I explain that this can be caused by many things including stress response, infection, medications, etc. I explain that we are going to await the results of the urinalysis and final head CT results. I explain that we will make a decision on the patient's plan based on the remaining results and repeat exam. Patient and mother have been given information about inpatient treatment by [facility]. 08/04/17 19:10 The patient has been up and walking unassisted. The mother has left the patient's room and is not visible in the department. The patient is awake and alert, laying on his side on the hospital bed eating a cookie. He is alert and oriented to his name, date, age, month, year, hospital, and situation. He is no longer falling asleep or keeping his eyes closed and has no speech latency. When asked why he is here, he repeats that he took 10 mg Xanax to help him sleep. He continues to deny any homicidal or suicidal thoughts at this time. When asked if he wants to go to rehab, he states that he does not want to go. He states that he will go to his brother's house or his mother's house tonight. I explain to the patient that his lab results are not concerning at this time for an acute emergency. I also tell him that his white blood cell count was slightly elevated and he needs repeat labs next week. I explain that he needs to follow up with a psychiatrist and a primary doctor. I explain that we are giving him referral information for both of these doctors. He states that he will follow up next week. He has decision making capacity at this time. I am not able to find the mother in the department to further discuss the results we have not already discussed. I tell him that our official recommendation is that he not use any medications not prescribed to him. He is appropriate for discharge with close outpatient follow up. Return precautions are discussed and he will come back to the ER if necessary. <Casandra Adame - Last Filed: 08/04/17 22:04> *DC/Admit/Observation/Transfer - Discharge Dispostion Admit: No <Casandra Adame - Last Filed: 08/04/17 22:04> - Discharge Dispostion Admit: Yes <Marlin Denny - Last Filed: 08/08/17 09:58> Diagnosis at time of Disposition: Benzodiazepine abuse - Discharge Dispostion Disposition: TRANSFER ACUTE CARE/OTHER HOSP Condition at time of disposition: Stable
[2017-08-04 14:59] LABS: BASO % 0.3 % (0-2.0); EOS % 0.4 % (0-4.5); HEMATOCRIT 51.2 % (35.4-49); HEMOGLOBIN 17.9 GM/dL (11.7-16.9); LYMPH % 19.7 % (8-40); MCH 31.8 pg (25.7-33.7); MEAN CELL VOLUME 90.9 fl (80-96); MEAN PLT VOLUME 8.1 fl (7.5-11.1); MONO % 8.1 % (3.8-10.2); NEUT % 71.5 % (42.8-82.8); PLATELET COUNT 308 K/MM3 (134-434); RBC 5.63 M/mm3 (4.00-5.60); RDW 12.8 % (11.9-15.9)
[2017-08-04 15:17] LABS: ACETAMINOPHEN < AMR ug/mL; SALICYLATE < 1.700 mg/dL
[2017-08-04 15:36] LABS: ALBUMIN 4.7 g/dl (3.4-5.0); ALK PHOS 87 U/L (45-117); ANION GAP 6 (8-16); BILIRUBIN,TOTAL 0.7 mg/dL (0.2-1.0); BLOOD UREA NITROGEN 18 mg/dL (7-18); CALCIUM 9.4 mg/dL (8.5-10.1); CHLORIDE 105 mmol/L (98-107); CO2 30 mmol/L (21-32); CREATININE 1.2 mg/dL (0.7-1.3); GLUCOSE,RANDOM 115 mg/dL (74-106); POTASSIUM 3.9 mmol/L (3.5-5.1); SGOT/AST 14 U/L (15-37); SGPT/ALT 28 U/L (12-78); SODIUM 141 mmol/L (136-145); TOT PROT 8.5 g/dl (6.4-8.2)
--- NOTE | 2017-08-04 15:36 | PDOC ---
Attending Attestation - Resident Resident Name: AdameCasandra - ED Attending Attestation I have performed the following: I have examined & evaluated the patient, The case was reviewed & discussed with the resident, I agree w/resident's findings & plan, Exceptions are as noted - HPI HPI: 08/04/17 15:55 32-year-old male with past medical history of alcohol, xanax abuse presents with overdose. The patient is accompanied by the mom and the patient is sleepy but can answer questions. The patient takes daily xanax and drinks alcohol daily (though the patient denies). He has been taking drugs from his friends. In the last day or two, he has been increasingly more lethargic and sleepy. Denies any pain. Mom is concerned as the patient has done this with drug OD. The patient is breathing comfortably. He has been in detox before, but has left against medical advice. - Physicial Exam PE: 08/04/17 16:20 GENERAL: Awake, alert, but sleepy and lethargic, in no acute distress. HEAD: No signs of trauma EYES: PERRLA, EOMI, sclera anicteric, conjunctiva clear ENT: Auricles normal inspection, hearing grossly normal, nares patent, NECK: Normal ROM, supple LUNGS: Breath sounds equal, clear to auscultation bilaterally. No wheezes, and no crackles HEART: Regular rate and rhythm, normal S1 and S2, no murmurs, rubs or gallops ABDOMEN: Soft, nontender. No guarding, no rebound. No masses EXTREMITIES: Normal range of motion, no edema. No clubbing or cyanosis. No cords, erythema, or tenderness NEUROLOGICAL: Cranial nerves II through XII grossly intact. SKIN: Warm, Dry, normal turgor, no rashes or lesions noted. - Medical Decision Making 08/04/17 16:21 Vital Signs Temp Pulse Resp BP Pulse Ox 98.4 F 78 15 144/92 96 08/04/17 13:48 08/04/17 13:48 08/04/17 13:48 08/04/17 13:48 08/04/17 13:48 The patient most likely utilized benzos. However, the patient is protecting his airway. Will obtain tox screen including asa, tylenol levels, utox, alcohol. ECG is reassuring. Labs, head CT. senior lead project manager Coral consulted and she had discussed detox options with the patient. Will offer [facility] as an option for the patient. Once sober, dispo to [facility] or d/c home if workup is unremarkable ( whatever pt wishes). Heart Score/ECG Review #1 ECG reviewed & interpreted by me at: 14:15 08/04/17 16:22 NSR 66, no std/perfecto, normal intervals, normal axis, QTC 442 msec
[2017-08-04 16:36] LABS: COCAINE, UR NEGATIVE ng/ml (CUTOFF=300); METHADONE, UR NEGATIVE ng/ml (CUTOFF=300); OPIATES, URI NEGATIVE ng/ml (CUTOFF=300); PHENCYCLIDINE,URINE NEGATIVE ng/ml (CUTOFF=25); URINE AMPHETAMINES NEGATIVE ng/ml (CUTOFF=500); URINE BARBITURATES NEGATIVE ng/ml (CUTOFF=200); URINE BENZODIAZEPINES NEGATIVE ng/ml (CUTOFF=200)
[2017-08-04 17:05] LABS: URINE APPEARANCE CLEAR; URINE BILIRUBIN NEGATIVE (<2.0 mg/dL); URINE BLOOD 2+ (NEGATIVE); URINE COLOR YELLOW; URINE GLUCOSE (UA) NEGATIVE (NEGATIVE); URINE KETONE NEGATIVE (NEGATIVE); URINE LEUK ESTERASE NEGATIVE (NEGATIVE); URINE NITRITE NEGATIVE (NEGATIVE); URINE PROTEIN NEGATIVE (NEGATIVE); URINE UROBILINOGEN NEGATIVE mg/dL (0.2-1.0)
[2017-08-04 17:07] LABS: EPI CELLS RARE /HPF (FEW); URINE MUCUS FEW
[2017-08-04 19:10] LABS: URINE APPEARANCE CLEAR; URINE COLOR YELLOW
[2017-08-04 19:11] LABS: URINE BILIRUBIN NEGATIVE (<2.0 mg/dL); URINE BLOOD 2+ (NEGATIVE); URINE GLUCOSE (UA) NEGATIVE (NEGATIVE); URINE KETONE NEGATIVE (NEGATIVE); URINE LEUK ESTERASE NEGATIVE (NEGATIVE); URINE NITRITE NEGATIVE (NEGATIVE); URINE PROTEIN NEGATIVE (NEGATIVE); URINE UROBILINOGEN NORMAL mg/dL (0.2-1.0)
[2017-08-04 19:12] LABS: EPI CELLS 1 /HPF (FEW); URINE MUCUS FEW
[2017-08-04 19:18] LABS: COCAINE, UR NEGATIVE ng/ml (CUTOFF=300); METHADONE, UR NEGATIVE ng/ml (CUTOFF=300); OPIATES, URI NEGATIVE ng/ml (CUTOFF=300); PHENCYCLIDINE,URINE NEGATIVE ng/ml (CUTOFF=25); URINE AMPHETAMINES NEGATIVE ng/ml (CUTOFF=500); URINE BARBITURATES NEGATIVE ng/ml (CUTOFF=200); URINE BENZODIAZEPINES NEGATIVE ng/ml (CUTOFF=200)
[2017-08-05] MEDS ORDERED: SODIUM CHLORIDE 1,000 ML IV SCH (00:15)
--- NOTE | 2017-08-05 00:28 | HP ---
Admitting History and Physical - Admission Chief Complaint: AMS, intoxication History of Present Illness: 32 y/o M brought to ED by mother after noted to be unresponsive and lethargic. Mother states that brother stated he took xanax and percocet. Patient was initially brought to ED in the afternoon and evaluated for AMS, initial Utox was reported as negative. Patient after CT study was left in the room while mother went to cafeteria for something to eat and on returning patient was not in the room. ED reported that patient had been discharged home, as he was alert and oriented with capacity. However patient was later found in bathroom shower and as per patient he states that he went to the bathroom by himself and fell asleep. Patient on further questioning reported taking 30mg oxycodone and 10mg xanax at 5am today, however initially said that he took the medication when mom stepped away and also in the morning as he could not sleep. Patient reports taking medications once a week for problems sleeping and occasionally mixes it with alcohol. He does not have a prescription for these medications and buys them off the street for over one year. Patient reports depressed mood twice weekly but denies any suicidal ideation. Patient denies giving prior urine sample. PMH: Insomnia and depression PSH: none FMH: noncontributory SH: Polypharmacy abuse, Smokes 1/2ppd, 1 litre hard alcohol weekly Allergies: NKDA History Source: Patient, Family Member, Medical Record Limitations to Obtaining History: Intoxication - Smoking History Smoking history: Current every day smoker Have you smoked in the past 12 months: Yes Aproximately how many cigarettes per day: 10 - Alcohol/Substance Use Hx Alcohol Use: Yes (1 LITER OF "HARD LIQUOIR" WEEKLY) - Social History Usual Living Arrangement: Yes: With Parent ADL: Independent Home Medications - Allergies Allergies/Adverse Reactions: Allergies Allergy/AdvReac Type Severity Reaction Status Date / Time No Known Allergies Allergy Verified 08/04/17 13:48 - Home Medications Home Medications: Ambulatory Orders NK [No Known Home Medication] 08/04/17 Family Disease History - Family Disease History Family History: Unremarkable Review of Systems Findings/Remarks: All systems reviewed and negative other than mentioned in HPI. Physical Examination Vital Signs: Vital Signs Temperature 98.9 F 08/04/17 19:45 Pulse Rate 78 08/04/17 19:45 Respiratory Rate 14 08/04/17 19:45 Blood Pressure 131/89 08/04/17 19:45 O2 Sat by Pulse Oximetry (%) 99 08/04/17 19:45 Constitutional: Yes: Well Nourished, Other (lethargic, slightly confused) Eyes: Yes: Other (dilated pupils, reactive to light.) HENT: Yes: Atraumatic, Normocephalic. No: Nasal Congestion Neck: Yes: Supple, Trachea Midline. No: Tenderness, Thyromegaly Cardiovascular: Yes: Regular Rate and Rhythm, S1, S2. No: Gallop, Murmur, Rub Respiratory: Yes: Regular, CTA Bilaterally Gastrointestinal: Yes: Normal Bowel Sounds, Soft ...Rectal Exam: Yes: Deferred Renal/: Yes: WNL Musculoskeletal: Yes: WNL Extremities: Yes: WNL Edema: No Peripheral Pulses WNL: Yes Integumentary: Yes: WNL Neurological: Yes: Confusion (alert and oriented to person, place and year not month.), Lethargy ...Motor Strength: WNL Psychiatric: Yes: Other (confused, intoxicated) Labs: CBC, BMP 08/04/17 14:50 08/04/17 14:24 Imaging - Results Cat Scan: Report Reviewed ( Ct Head ? 1 cm right frontal subcortical hypodense focus. additional evaluation) Problem List - Problems (1) Depression Code(s): F32.9 - MAJOR DEPRESSIVE DISORDER, SINGLE EPISODE, UNSPECIFIED Qualifiers: Depression Type: unspecified Qualified Code(s): F32.9 - Major depressive disorder, single episode, unspecified (2) Sedative, hypnotic or anxiolytic dependence with withdrawal, uncomplicated Code(s): F13.230 - SEDATV/HYP/ANXIOLYTC DEPENDENCE W WITHDRAWAL, UNCOMPLICATED (3) Nicotine dependence Code(s): F17.200 - NICOTINE DEPENDENCE, UNSPECIFIED, UNCOMPLICATED Qualifiers: Nicotine product type: cigarettes Substance use status: uncomplicated Qualified Code(s): F17.210 - Nicotine dependence, cigarettes, uncomplicated Assessment/Plan Admit top medicine IVF NS @125cc/h Normal diet Ativan 2mg prn for w/d or aggitation Psych consult for depression Rehab consult for polysubstance dependence DVT prophylaxis- ambulation Patient with questionable capacity- mother is surrogate Visit type - Emergency Visit Emergency Visit: Yes ED Registration Date: 08/04/17 Care time: The patient presented to the Emergency Department on the above date and was hospitalized for further evaluation of their emergent condition. - New Patient This patient is new to me today: Yes Date on this admission: 08/05/17 - Critical Care Critical Care patient: Yes Total Critical Care Time (in minutes): 45 Critical Care Statement: The care of this patient involved high complexity decision making to prevent further life threatening deterioration of the patient 's condition and/or to evaluate & treat vital organ system(s) failure or risk of failure. Hospitalist Screening - Colonoscopy Questionnaire Colonoscopy Questionnaire: Colonoscopy Questionnaire - Patient: 50 - 75 years old and never had a screening colonoscopy: No History of colon or rectal polyps, or CA: No History of IBD, Crohn's disease or UC: No History of abdominal radiation therapy as a child: No - Relative: 1 with colon or rectal CA, or polyps at age 60 or younger: Unknown Colon or rectal CA diagnosed at age 45 or younger: Unknown Multiple relatives with colon or rectal CA: Unknown - Outcome: Screening Result: Negative Screen
[2017-08-05 08:32] LABS: HEMATOCRIT 45.3 % (35.4-49); MCH 31.9 pg (25.7-33.7); MCHC 35.3 g/dl (32.0-35.9); MEAN CELL VOLUME 90.4 fl (80-96); MEAN PLT VOLUME 7.8 fl (7.5-11.1); PLATELET COUNT 243 K/MM3 (134-434); RBC 5.01 M/mm3 (4.00-5.60); RDW 12.6 % (11.9-15.9)
[2017-08-05 08:57] LABS: CHLORIDE 107 mmol/L (98-107); POTASSIUM 3.8 mmol/L (3.5-5.1); SODIUM 143 mmol/L (136-145)
[2017-08-05 09:03] LABS: ALK PHOS 71 U/L (45-117); ANION GAP 9 (8-16); BILIRUBIN,TOTAL 0.7 mg/dL (0.2-1.0); BLOOD UREA NITROGEN 16 mg/dL (7-18); CO2 27 mmol/L (21-32); GLUCOSE,RANDOM 105 mg/dL (74-106); SGOT/AST 21 U/L (15-37); SGPT/ALT 24 U/L (12-78); TOT PROT 6.9 g/dl (6.4-8.2)
--- NOTE | 2017-08-05 10:59 | CONSULT ---
Consult Detox [facility] Reason for Current Admission/Consult: substance use Referred by:: david luciano - History History of Present Illness: 32 yo m admitted to [facility] after suspected drug overdose, known to [facility] where he had been admitted in past for detox from opioids and reported benzodiazepine dependnece at that time. IN view of negative urine toxicology and lack of withdrawal sx I woudl refer him to [facility] when medicallystable. if he develops withdrawl sx in rehab he can be treated symptomatically or started on MAT with suboxone. No treatment indicated at present, fluids, mvi. call rehab for bed and insruance verification prior to transfer. he can recieve treatment adn MAT for opioid use diobeba at [facility] as an outpatient - Alcohol/Substance Use Hx Alcohol Use: Yes (1 LITER OF "HARD LIQUOIR" WEEKLY) Assessment Plan - Diagnosis (1) Opioid abuse Status: Acute (2) Benzodiazepine abuse Status: Acute (3) Nicotine dependence Status: Chronic Qualifiers: Nicotine product type: cigarettes Substance use status: uncomplicated Qualified Code(s): F17.210 - Nicotine dependence, cigarettes, uncomplicated - Plan Plan: 32 yo m admitted to [facility] after suspected drug overdose, known to [facility] where he had been admitted in past for detox from opioids and reported benzodiazepine dependnece at that time. IN view of negative urine toxicology and lack of withdrawal sx I woudl refer him to [facility] when medicallystable. if he develops withdrawl sx in rehab he can be treated symptomatically or started on MAT with suboxone. No treatment indicated at present, fluids, mvi. call rehab for bed and insurance verification prior to transfer. Outpatient treatment f substance use and MAT is avaialble at [facility]. prescribe naloxone on discharge for overdose prevention. - Medication Detox Regimen/Protocol: Not Applicable
[2017-08-05] MEDS ORDERED: ZOLPIDEM TARTRATE 5 MG TABLET PO PRN (11:07)
[2017-08-05] MEDS ORDERED: diazePAM 5 MG TABLET PO PRN ×2 (11:07→16:00)
[2017-08-05] MEDS ORDERED: NICOTINE POLACRILEX 2 MG GUM BUC PRN (11:08)
--- NOTE | 2017-08-05 11:33 | EKG ---
Test Reason : Blood Pressure : / mmHG Vent. Rate : 066 BPM Atrial Rate : 066 BPM P-R Int : 188 ms QRS Dur : 110 ms QT Int : 422 ms P-R-T Axes : -05 -07 022 degrees QTc Int : 442 ms NORMAL SINUS RHYTHM NORMAL ECG WHEN COMPARED WITH ECG OF 10-JUN-2017 20:43, T WAVE AMPLITUDE HAS DECREASED IN LATERAL LEADS Confirmed by MARJORIE ROWE MD ([id number]) on 08/05/2017 11:32:39 AM Referred By: Confirmed By:MARJORIE ROWE MD
[2017-08-05] MEDS: NICOTINE 21 MG/24 HOURS TOPICAL PATCH TD SCH (12:01)
[2017-08-05] MEDS: IBUPROFEN 400 MG TABLET (FP) PO PRN (13:59)
[2017-08-05] MEDS: ENALAPRIL MALEATE 5 MG TABLET (FP) PO SCH (14:00)
--- NOTE | 2017-08-05 15:14 | PN ---
Physical Exam: SUBJECTIVE: Patient seen and examined Patient is very confused and very agitated. Does not know what medications he took. OBJECTIVE: Vital Signs Temperature 98.4 F 08/05/17 14:37 Pulse Rate 115 H 08/05/17 14:37 Respiratory Rate 18 08/05/17 14:37 Blood Pressure 164/109 08/05/17 14:37 O2 Sat by Pulse Oximetry (%) 97 08/05/17 09:00 GENERAL: The patient is awake, alert, and fully oriented, in no acute distress. HEAD: Normal with no signs of trauma. EYES: PERRL, extraocular movements intact, sclera anicteric, conjunctiva clear. ENT: Ears normal, oropharynx clear without exudates, moist mucous membranes. NECK: Trachea midline, full range of motion, supple. LUNGS: Breath sounds equal, clear to auscultation bilaterally, no wheezes, no crackles, no accessory muscle use. HEART: Regular rate and rhythm, S1, S2 without murmur, rub or gallop. ABDOMEN: Soft, nontender, nondistended, normoactive bowel sounds, no guarding, no rebound, no hepatosplenomegaly, no masses. EXTREMITIES: 2+ pulses, warm, well-perfused, no edema. NEUROLOGICAL: Cranial nerves II through XII grossly intact. Normal speech, gait not observed. PSYCH: Normal mood, normal affect. SKIN: Warm, dry, normal turgor, no rashes or lesions noted CBCD WBC 11.0 K/mm3 (4.0-10.0) H 08/05/17 06:20 RBC 5.01 M/mm3 (4.00-5.60) 08/05/17 06:20 Hgb 16.0 GM/dL (11.7-16.9) D 08/05/17 06:20 Hct 45.3 % (35.4-49) 08/05/17 06:20 MCV 90.4 fl (80-96) 08/05/17 06:20 MCHC 35.3 g/dl (32.0-35.9) 08/05/17 06:20 RDW 12.6 % (11.9-15.9) 08/05/17 06:20 Plt Count 243 K/MM3 (134-434) D 08/05/17 06:20 MPV 7.8 fl (7.5-11.1) 08/05/17 06:20 CMP Sodium 143 mmol/L (136-145) 08/05/17 06:20 Potassium 3.8 mmol/L (3.5-5.1) 08/05/17 06:20 Chloride 107 mmol/L (98-107) 08/05/17 06:20 Carbon Dioxide 27 mmol/L (21-32) 08/05/17 06:20 Anion Gap 9 (8-16) 08/05/17 06:20 BUN 16 mg/dL (7-18) 08/05/17 06:20 Creatinine 1.0 mg/dL (0.7-1.3) 08/05/17 06:20 Creat Clearance w eGFR > 60 (>60) 08/05/17 06:20 Random Glucose 105 mg/dL (74-106) 08/05/17 06:20 Calcium 9.0 mg/dL (8.5-10.1) 08/05/17 06:20 Total Bilirubin 0.7 mg/dL (0.2-1.0) 08/05/17 06:20 AST 21 U/L (15-37) D 08/05/17 06:20 ALT 24 U/L (12-78) 08/05/17 06:20 Alkaline Phosphatase 71 U/L (45-117) 08/05/17 06:20 Total Protein 6.9 g/dl (6.4-8.2) 08/05/17 06:20 Albumin 4.0 g/dl (3.4-5.0) 08/05/17 06:20 Active Medications Generic Name Dose Route Start Last Admin Trade Name Freq PRN Reason Stop Dose Admin Diazepam 10 mg 08/05/17 11:07 Valium - PO 08/08/17 11:08 Q4H PRN WITHDRAWAL(CONT SUBST) Enalapril Maleate 5 mg 08/05/17 14:00 08/05/17 14:00 Vasotec - PO 5 mg DAILY JULIETA Administration Sodium Chloride 1,000 mls @ 125 mls/hr 08/05/17 00:15 08/05/17 01:46 Normal Saline - IV 125 mls/hr ASDIR JLUIETA Administration Ibuprofen 400 mg 08/05/17 11:07 08/05/17 13:59 Motrin - PO 400 mg Q4H PRN Administration FEVER Nicotine 21 mg 08/05/17 11:15 08/05/17 12:01 Nicoderm Patch - TD 21 mg DAILY JULIETA Administration Nicotine Polacrilex 2 mg 08/05/17 11:08 Nicorette Gum - BUC Q2H PRN NICOTINE REPLACEMENT RX Multivit/Folic Acid/Iron 1 tab 08/06/17 10:00 Vitamins (Sjr) - PO DAILY JULIETA Thiamine HCl 100 mg 08/05/17 22:00 Vitamin B1 - PO HS JULIETA Zolpidem Tartrate 10 mg 08/05/17 11:07 Ambien - PO HS PRN INSOMNIA Home Medications Medication Instructions Recorded NK [No Known Home Medication] 08/04/17 ASSESSMENT/PLAN: Patient is a 32 yo Bulgarian male was admitted for suspected drug overdose, Patient is known to [facility] where he had been admitted in past for detox from opioids and reported benzodiazepine dependnece at that time. # Schizoperia behavior with paranoia , as per patient stated that he is on Clozaril at home possible due to his street drugs that he used. [facility] consult was requested. Urine tox so far negative. Detox consult requested. .Will continue with IVF , mvi. DVT Px: early ambulation Visit type - Emergency Visit Emergency Visit: Yes ED Registration Date: 08/05/17 Care time: The patient presented to the Emergency Department on the above date and was hospitalized for further evaluation of their emergent condition. - New Patient This patient is new to me today: Yes Date on this admission: 08/05/17 - Critical Care Critical Care patient: No - Discharge Referral Referred to [facility] Med P.C.: No
[2017-08-05] MEDS ORDERED: amLODIPine BESYLATE 5 MG TABLET (FP) PO ONE (16:15)
[2017-08-05] MEDS: THIAMINE HCL 100 MG TABLET (FP) PO SCH (22:00)
[2017-08-06 01:34] LABS: COCAINE, UR NEGATIVE ng/ml (CUTOFF=300); METHADONE, UR NEGATIVE ng/ml (CUTOFF=300); OPIATES, URI NEGATIVE ng/ml (CUTOFF=300); PHENCYCLIDINE,URINE NEGATIVE ng/ml (CUTOFF=25); URINE AMPHETAMINES NEGATIVE ng/ml (CUTOFF=500); URINE BARBITURATES NEGATIVE ng/ml (CUTOFF=200); URINE BENZODIAZEPINES NEGATIVE ng/ml (CUTOFF=200)
[2017-08-06] MEDS ORDERED: HALOPERIDOL LACTATE 5 MG/ML IM ONE (04:45)
[2017-08-06] MEDS: PRENATAL VITAMINS W/ FOLIC ACID TABLET (FP) PO SCH (10:59)
[2017-08-06] MEDS: ENALAPRIL MALEATE 5 MG TABLET (FP) PO SCH (10:59)
[2017-08-06] MEDS: NICOTINE 21 MG/24 HOURS TOPICAL PATCH TD SCH (11:00)
--- NOTE | 2017-08-06 11:58 | PN ---
<Edouard Fairchild - Last Filed: 08/06/17 11:55> Physical Exam: SUBJECTIVE: Patient seen and examined Overnight patient with visual and auditory hallucinations. Threatened nurse. currently on 1:1 observation OBJECTIVE: Vital Signs Period Temp Pulse Resp BP Sys/[place]inton Pulse Ox Last 24 Hr 97.5 F-98.4 F 68-115 16-20 109-164/55-109 96-97 GENERAL: lethargic, unwilling to speak, uncooperative HEAD: Normal with no signs of trauma. NECK: Trachea midline, full range of motion, supple. LUNGS: Breath sounds equal, clear to auscultation bilaterally, no wheezes, no crackles, no accessory muscle use. HEART: Regular rate and rhythm, S1, S2 without murmur, rub or gallop. ABDOMEN: Soft, nontender, nondistended, normoactive bowel sounds PSYCH: lethargic, unable to assess SKIN: Warm, dry, normal turgor, no rashes or lesions noted Laboratory Results - last 24 hr 08/05/17 08/06/17 14:45 00:00 Ammonia 22.25 Opiates Screen Negative Methadone Screen Negative Barbiturate Screen Negative Phencyclidine Screen Negative Ur Amphetamines Screen Negative MDMA (Ecstasy) Screen Negative Benzodiazepines Screen Negative Cocaine Screen Negative U Marijuana (THC) Screen Negative Active Medications Generic Name Dose Route Start Last Admin Trade Name Freq PRN Reason Stop Dose Admin Enalapril Maleate 5 mg 08/05/17 14:00 08/06/17 10:59 Vasotec - PO 5 mg DAILY JULIETA Administration Ibuprofen 400 mg 08/05/17 11:07 08/05/17 13:59 Motrin - PO 400 mg Q4H PRN Administration FEVER Lorazepam 2 mg 08/06/17 04:45 Ativan Injection - IVPUSH Q6H PRN ANXIETY Nicotine 21 mg 08/05/17 11:15 08/06/17 11:00 Nicoderm Patch - TD 21 mg DAILY JULIETA Administration Nicotine Polacrilex 2 mg 08/05/17 11:08 Nicorette Gum - BUC Q2H PRN NICOTINE REPLACEMENT RX Multivit/Folic Acid/Iron 1 tab 08/06/17 10:00 08/06/17 10:59 Vitamins (Sjr) - PO 1 tab DAILY JULIETA Administration Thiamine HCl 100 mg 08/05/17 22:00 08/05/17 22:00 Vitamin B1 - PO 100 mg HS JULIETA Administration ASSESSMENT/PLAN: 32 y/o M brought to ED by mother after noted to be unresponsive and lethargic. #Scihzophrenia -Psychiatric consultation -ativan 2q6 prn #nicotine abuse -nicotine patch -pt counseled on quitting -vitamins, thiamine #HTN -Vasotec 5mg #fen/gi -no ivf -wnl -regular diet #ppx -scds #dispo: pending psych evaluation Visit type - Emergency Visit Emergency Visit: Yes ED Registration Date: 08/05/17 Care time: The patient presented to the Emergency Department on the above date and was hospitalized for further evaluation of their emergent condition. - New Patient This patient is new to me today: Yes Date on this admission: 08/06/17 - Critical Care Critical Care patient: No <Paulino Loving - Last Filed: 08/06/17 19:04> Physical Exam: Patient stated to me that he was on Clozaril at home, will heck his pharmacy. Patient is being evaluated by . started on IM Ativan.
--- NOTE | 2017-08-06 15:56 | CON.PSY ---
Psychiatry Consult Chief Complaint: 32 year old Maltese Male admitted with acute confusion and agitation and hallucinations. spopke to patient and mom. 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 patient denies any psych problems, denies he takes any CLOZARIL. Symptoms: reports: Sleep Disturbance, Irritability, Inability to Control Temper , Impulsivity, Hallucinations - Previous Psychiatric Treatment Outpatient: None Inpatient: None - Previous Substance Abuse Treatment Outpatient: Less than 6 mos ago - Reason for Previous Treatment Reason for Previous Treatment: Heroin or Other Narcotics, Other Drugs - Current Medications Current Medications: Active Medications Enalapril Maleate (Vasotec -) 5 mg PO DAILY [facility] Last Admin: 08/06/17 10:59 Dose: 5 mg Ibuprofen (Motrin -) 400 mg PO Q4H PRN PRN Reason: FEVER Last Admin: 08/05/17 13:59 Dose: 400 mg Lorazepam (Ativan Injection -) 2 mg IVPUSH Q6H PRN PRN Reason: ANXIETY Nicotine (Nicoderm Patch -) 21 mg TD DAILY [facility] Last Admin: 08/06/17 11:00 Dose: 21 mg Nicotine Polacrilex (Nicorette Gum -) 2 mg BUC Q2H PRN PRN Reason: NICOTINE REPLACEMENT RX Multivit/Folic Acid/Iron ( Vitamins (Sjr) -) 1 tab PO DAILY [facility] Last Admin: 08/06/17 10:59 Dose: 1 tab Thiamine HCl (Vitamin B1 -) 100 mg PO HS [facility] Last Admin: 08/05/17 22:00 Dose: 100 mg - Allergies Allergies: Allergies Allergy/AdvReac Type Severity Reaction Status Date / Time No Known Allergies Allergy Verified 08/04/17 13:48 - Current Living Status Usual Living Arrangement: With Significant Other - Current Mental Status Evaluation Appearance: Disheveled Attitude: Guarded - Affect Affect: Constrictive Appropriateness: Not Appropriate - Mood Mood: Irritable - Speech/Language Expressive: Delayed - Psychomotor Activity Psychomotor Activity: Slowed - Thought Process Thought Process: Circumstantial - Thought Content Hallucinations: Absent Delusions: Absent - Self Perception Self Perception: No Impairment - Cognition Attention: Diminished Orientation: Time Memory, Immediate Recall: Intact Memory, Short Term: 1/3 Memory, Remote with Promptin/3 - Concentration Serial Sevens Intact: No Simple Calculations Intact: No - Abstraction Proverb Interpretation: Impaired Judgement: Moderately Impaired - Insight Insight: Impaired - Impulse Control Impulse Control: Moderately Impaired - Suicidal Ideation Suicidal Ideation: No - Homicidal Ideation Homicidal Ideation: No
[2017-08-06] MEDS: IBUPROFEN 400 MG TABLET (FP) PO PRN ×2 (16:31→21:33)
[2017-08-06] MEDS: THIAMINE HCL 100 MG TABLET (FP) PO SCH (21:30)
[2017-08-07] MEDS: ENALAPRIL MALEATE 5 MG TABLET (FP) PO SCH (09:01)
[2017-08-07] MEDS: NICOTINE 21 MG/24 HOURS TOPICAL PATCH TD SCH (09:02)
[2017-08-07] MEDS: PRENATAL VITAMINS W/ FOLIC ACID TABLET (FP) PO SCH (09:02)
--- NOTE | 2017-08-07 10:19 | DS ---
Physical Exam: Selected Entries 08/07/17 08/07/17 09:00 10:00 Temperature 97.1 F L Pulse Rate 79 Respiratory 20 Rate Blood Pressure 125/77 O2 Sat by Pulse 96 Oximetry (%) Oxygen Delivery Room Air Method Laboratory Tests 08/04/17 08/04/17 08/04/17 14:24 14:50 16:00 WBC Hgb Hct Plt Count Sodium Potassium Chloride Carbon Dioxide Anion Gap BUN Creatinine Random Glucose Ammonia TSH 0.70 Urine Protein Urine Glucose (UA) Urine Ketones Urine Blood Urine Nitrite Urine Bilirubin Urine Urobilinogen Ur Leukocyte Esterase Urine WBC (Auto) Urine RBC (Auto) Ur Epithelial Cells Urine Mucus Salicylates < 1.700 Opiates Screen Negative Methadone Screen Negative Acetaminophen < amr Barbiturate Screen Negative Phencyclidine Screen Negative Ur Amphetamines Screen Negative MDMA (Ecstasy) Screen Negative Benzodiazepines Screen Negative Cocaine Screen Negative U Marijuana (THC) Screen Negative Alcohol, Quantitative < 5.0 08/04/17 08/04/17 08/05/17 18:30 18:30 06:20 WBC 11.0 H Hgb 16.0 D Hct 45.3 Plt Count 243 D Sodium Potassium Chloride Carbon Dioxide Anion Gap BUN Creatinine Random Glucose Ammonia TSH Urine Protein Negative Urine Glucose (UA) Negative Urine Ketones Negative Urine Blood 2+ H Urine Nitrite Negative Urine Bilirubin Negative Urine Urobilinogen Normal Ur Leukocyte Esterase Negative Urine WBC (Auto) 1 Urine RBC (Auto) 15 Ur Epithelial Cells 1 Urine Mucus Few Salicylates Opiates Screen Negative Methadone Screen Negative Acetaminophen Barbiturate Screen Negative Phencyclidine Screen Negative Ur Amphetamines Screen Negative MDMA (Ecstasy) Screen Negative Benzodiazepines Screen Negative Cocaine Screen Negative U Marijuana (THC) Screen Negative Alcohol, Quantitative 08/05/17 08/05/17 08/06/17 06:20 14:45 00:00 WBC Hgb Hct Plt Count Sodium 143 Potassium 3.8 Chloride 107 Carbon Dioxide 27 Anion Gap 9 BUN 16 Creatinine 1.0 Random Glucose 105 Ammonia 22.25 TSH Urine Protein Urine Glucose (UA) Urine Ketones Urine Blood Urine Nitrite Urine Bilirubin Urine Urobilinogen Ur Leukocyte Esterase Urine WBC (Auto) Urine RBC (Auto) Ur Epithelial Cells Urine Mucus Salicylates Opiates Screen Negative Methadone Screen Negative Acetaminophen Barbiturate Screen Negative Phencyclidine Screen Negative Ur Amphetamines Screen Negative MDMA (Ecstasy) Screen Negative Benzodiazepines Screen Negative Cocaine Screen Negative U Marijuana (THC) Screen Negative Alcohol, Quantitative head ct- an equivocal subtle nonspecific 1 cm right frontal subcortical hypodenisty HOSPITAL COURSE: Date of Admission:08/05/17 Date of Discharge: 08/07/17 32 y/o M brought to ED by mother after noted to be unresponsive and lethargic. Mother stated he took xanax and percocet. Patient was initially brought to ED in the afternoon and evaluated for AMS, initial Utox was reported as negative. Patient after CT study was left in the room while mother went to cafeteria for something to eat and on returning patient was not in the room. ED reported that patient had been discharged home, as he was alert and oriented with capacity. However patient was later found in bathroom shower and as per patient he states that he went to the bathroom by himself and fell asleep. Patient on further questioning reported taking 30mg oxycodone and 10mg xanax, however initially said that he took the medication when mom stepped away and also in the morning as he could not sleep. Patient observed for his ams and lethargy. Patient having hallucinations while inpatient. Evaluated by psych who believes this is drug induced psychosis. UTOX negative x3. Patient's psychosis improved and pt d/c to [facility] for rehab. Patient will f/u outpatient for post hospital evaluation. Minutes to complete discharge: 40 <Edouard Fairchild - Last Filed: 08/07/17 16:12> Physical Exam: Patient is AAOx3 today , stated that he took M30a blue pill, it makes him feel well and makes him go to sleep, since has a sleeping problem at home. Patient's mother at bedside, discussed with the mother and . patient will discharged back to [facility], accepted back by . <Paulino Loving - Last Filed: 08/07/17 18:41> Discharge Summary Reason For Visit: BENZODIAZEPINE ABUSE Current Active Problems Benzodiazepine abuse (Acute) Opioid abuse (Acute) Depression (Chronic) - Home Medications Comprehensive Discharge Medication List: Ambulatory Orders NK [No Known Home Medication] 08/04/17 <Edouard Fairchild - Last Filed: 08/07/17 16:12> - Home Medications Comprehensive Discharge Medication List: Ambulatory Orders NK [No Known Home Medication] 08/04/17 <Fabienne,Garine - Last Filed: 08/07/17 18:41> Condition: Stable - Instructions Diet, Activity, Other Instructions: You were seen in the ER for decreased responsiveness after taking Xanax, and for blue coloration to your hands and forearms. We did lab work on your blood and urine, and there were no concerning findings. There was a slightly elevated white blood cell which might have been caused by many things, including a stress response, but you should have this bloodwork repeated next week. We also did a head CT and are providing you with a copy of the report. After our assessment, we do not believe you are having a medical emergency at this time, and we believe you are safe to go home. Follow-up: 1. You should also follow up with your regular doctor for post-hospital evaluation. We are also giving you referral information for our primary care clinic in case you need a new doctor. Call the clinic or your doctor as soon as possible, tell them you were admitted to the hospital, and tell them you need an appointment. 2. Please follow up with Detox, and with a psychiatrist of your choice. Recommendations: If you have any new or worsening symptoms, please come back to the ER at any time (24 hours a day). Please continue your rehabilitation away from alcohol and drugs, [facility] provides outpatient help, please call for services: , Address: [address] [place] [address], [facility] If you experience chest pain, trouble breathing, seizures, have a drug overdose , have someone drive you to the hospital. If you develop any new concerning symptoms please return to the hospital. [place] [facility] [place] [facility] [place] Group] - 1 Week Disposition: TRANSFER ACUTE CARE/OTHER HOSP This patient is new to me today: No Emergency Visit: Yes ED Registration Date: 08/05/17 Care time: The patient presented to the Emergency Department on the above date and was hospitalized for further evaluation of their emergent condition. Critical Care patient: No - Discharge Referral Referred to [facility] Med P.C.: No <Edouard Fairchild - Last Filed: 08/07/17 16:12>
[2017-08-07 10:38] VITALS: BP 125/77; PULSE 79; TEMP 97.1
--- NOTE | 2017-08-07 10:46 | PN ---
Progress Note (short form) - Note Progress Note: Patient seen for Psych follow up. MS: Alert, oriented, able to engage in conversation. Not hallucinating or delusional. Not suicidal or Homicidal. Patient has no history of Schizophrenia and never been on Clozaril. He admits to taking too many Oxocodones and percocets. Plan: Transfer to detox when medically clear.
== END 2017-08-07 12:59 | disposition short-term general hospital (02) | DRG 773 ==
LOC: JER 13:45 → JERBED 23:09 → OBSVTOIN 08-05 00:15 → J7W 08-05 01:10
PROVIDERS: ADMIT Internal Medicine; ATTEND Internal Medicine
PROC: HZ2ZZZZ Detoxification Services for Substance Abuse Treatment (ICD-10-PCS; principal; 2017-08-05)
DX: F11.251 Opioid dependence with opioid-induced psychotic disorder with hallucinations (principal); T42.4X1A Poisoning by benzodiazepines, accidental (unintentional), initial encounter; F13.230 Sedative, hypnotic or anxiolytic dependence with withdrawal, uncomplicated; G47.00 Insomnia, unspecified; F32.9 Major depressive disorder, single episode, unspecified; F17.210 Nicotine dependence, cigarettes, uncomplicated; F20.9 Schizophrenia, unspecified; Y92.89 Other specified places as the place of occurrence of the external cause; F10.20 Alcohol dependence, uncomplicated
CPT/HCPCS: 36415; 70450-TC; 70551-TC; 71045-TC-FY; 80053; 80307; 81003; 81015; 82140; 84443; 85025; 85027; 87086; 93005; 93010; 99284-25; G0378; J7030

== ENCOUNTER 2017-08-07 14:52 | Inpatient (IN) | payer OTHER ==
[2017-08-07 16:34] VITALS: BMI 26.0
--- NOTE | 2017-08-07 19:17 | HP ---
CIWA Score - CIWA Score Nausea/Vomitin-No Nausea/No Vomiting Muscle Tremors: None Anxiety: 1-Mildly Anxious Agitation: 1-Slight > Activity Paroxysmal Sweats: No Perspiration Orientation: 0-Oriented Tacttile Disturbances: 0-None Auditory Disturbances: 0-None Visual Disturbances: 0-None Headache: 0-None Present (Denies hx blackouts. States last alcohol use 2 days ago.) CIWA-Ar Total Score: 2 Admission ROS S - HPI Allergies/Adverse Reactions: Allergies Allergy/AdvReac Type Severity Reaction Status Date / Time No Known Allergies Allergy Verified 08/04/17 13:48 - Ebola screening Have you traveled outside of the country in the last 21 days: No (N) Have you had contact with anyone from an Ebola affected area: No Have you been sick,other than usual withdrawal symptoms: No Do you have a fever: No - Review of Systems Constitutional: No Symptoms Reported Musculoskeletal: reports: Back Pain (Hx. sciatic w/ bulging spinal discs. Back pain is in lower back, when it occurs.), Joint Pain (Hx. arthritis both knees x 2 years. Pain increases w/ wet/cold weather and standing for long periods. Knee pain is sharp and a "10". Improved w/ aleve and heating pads, and resting.) Integumentary: reports: Dryness (Dry skin and athlete's foot x 2 days.) Neuro: reports: Numbness (Intermittent (R) leg and foot whic causes a limp.) Endocrine: reports: Other (States hx. Hypoactive thyroid.) Hematology: reports: Anemia (Has a B-12 shot 3 days ago. Denies bleeding or bruising.) Patient History - Patient Medical History Hx Anemia: No Hx Asthma: No Hx Chronic Obstructive Pulmonary Disease (COPD): No Hx Cancer: No Hx Cardiac Disorders: No Hx Congestive Heart Failure: No Hx Hypertension: No Hx Hypercholesterolemia: No Hx Pacemaker: No HX Cerebrovascular Accident: No Hx Seizures: No Hx Dementia: No Hx Diabetes: No Hx Gastrointestinal Disorders: No Hx Liver Disease: No Hx Genitourinary Disorders: No Hx Sexually Transmitted Disorders: No Hx Renal Disease (ESRD): No Hx Thyroid Disease: No Hx Human Immunodeficiency Virus (HIV): (LAST [facility] 01/22/17) Hx Hepatitis C: No Hx Depression: Yes (NO TREATMENT) Hx Suicide Attempt: No Hx Bipolar Disorder: No Hx Schizophrenia: No - Patient Surgical History Past Surgical History: Yes Hx Abdominal Surgery: Yes (hernia) Other Surgical History: R INGUINAL HERNIA REPAIR aT AGE OF 76 YEARS OLD Anesthesia Reaction: No - PPD History Date: 03/27/17 Results: 0 MM - Smoking Cessation Smoking history: Current every day smoker Have you smoked in the past 12 months: Yes Aproximately how many cigarettes per day: 10 Cigars Per Day: 0 Hx Chewing Tobacco Use: No - Substance & Tx. History Hx Alcohol Use: Yes (LAST USED 2 DAYS AGO) Hx Substance Use: Yes Substance Use Type: Alcohol, Cocaine Hx Substance Use Treatment: Yes Admission Physical Exam [facility] - Vital Signs Vital Signs: Vital Signs - 24 hr 08/07/17 16:31 Temperature 96.4 F L Pulse Rate 98 H Respiratory 18 Rate Blood Pressure 123/83 - Diagnostic (1) Cocaine dependence Current Visit: Yes Status: Acute (2) Alcohol dependence in early, early partial, sustained full, or sustained partial remission Current Visit: Yes Status: Acute (3) Nicotine dependence Current Visit: No Status: Chronic Qualifiers: Nicotine product type: cigarettes Substance use status: uncomplicated Qualified Code(s): F17.210 - Nicotine dependence, cigarettes, uncomplicated Cleared for Admission [facility] - Detox or Rehab [facility] Level of Care: Medically Supervised Detox Regimen/Protocol: Not Applicable Claeared for Rehab Admission: Yes [facility] Breath Alcohol Content Breath Alcohol Content: 0 Urine Drug Screen - Results Drug Screen Negative: Yes
--- NOTE | 2017-08-07 21:27 | HP ---
Admission ROS [facility] Chief Complaint: rehab services Allergies/Adverse Reactions: Allergies Allergy/AdvReac Type Severity Reaction Status Date / Time No Known Allergies Allergy Verified 08/07/17 21:41 History of Present Illness: Patient is a a 32 yo with h/o prescription drug abuse xanax and percocets was last evaluated at in [facility] 08/04/17 - 08/07/17 for possible xanax overdose. Patient was evaluated by Dr. Maxwell while at [facility] and cleared for rehab. Patient denies suicidal or homicidal ideation. Reports no significant period of sobriety. Reports last detox at [facility] 06/10/17 -06/15/17. Exam Limitations: No Limitations - Ebola screening Have you traveled outside of the country in the last 21 days: No (N) Have you had contact with anyone from an Ebola affected area: No Have you been sick,other than usual withdrawal symptoms: No Do you have a fever: No - Review of Systems Constitutional: Chills, Changes in sleep, Unintentional Wgt. Loss EENT: reports: No Symptoms Reported Respiratory: reports: No Symptoms reported Cardiac: reports: No Symptoms Reported GI: reports: Nausea, Poor Appetite, Poor Fluid Intake : reports: No Symptoms Reported Musculoskeletal: reports: No Symptoms Reported Integumentary: reports: No Symptoms Reported Neuro: reports: No Symptoms reported Endocrine: reports: Increased Thirst Hematology: reports: No Symptoms Reported Psychiatric: reports: Orientated x3, Anxious Other Systems: Reviewed and Negative Patient History - Patient Medical History Hx Anemia: No Hx Asthma: No Hx Chronic Obstructive Pulmonary Disease (COPD): No Hx Cancer: No Hx Cardiac Disorders: No Hx Congestive Heart Failure: No Hx Hypertension: No Hx Hypercholesterolemia: No Hx Pacemaker: No HX Cerebrovascular Accident: No Hx Seizures: No Hx Dementia: No Hx Diabetes: No Hx Gastrointestinal Disorders: No Hx Liver Disease: No Hx Genitourinary Disorders: No Hx Sexually Transmitted Disorders: No Hx Renal Disease (ESRD): No Hx Thyroid Disease: No Hx Human Immunodeficiency Virus (HIV): No (LAST [facility] 01/22/17) Hx Hepatitis C: No Hx Depression: Yes (NO TREATMENT) Hx Suicide Attempt: No Hx Bipolar Disorder: No Hx Schizophrenia: No - Patient Surgical History Past Surgical History: Yes Hx Abdominal Surgery: Yes (hernia) Other Surgical History: R INGUINAL HERNIA REPAIR aT AGE OF 76 YEARS OLD Anesthesia Reaction: No - PPD History Previous Implant?: Yes Documented Results: Negative w/proof Date: 03/27/17 Results: 0 MM PPD to be Administered?: No - Reproductive History Patient is a Female of Child Bearing Age (11 -55 yrs old): No - Smoking Cessation Smoking history: Current every day smoker Have you smoked in the past 12 months: Yes Aproximately how many cigarettes per day: 10 Cigars Per Day: 0 Hx Chewing Tobacco Use: No Initiated information on smoking cessation: Yes 'Breaking Loose' booklet given: 08/07/17 - Substance & Tx. History Hx Alcohol Use: No Hx Substance Use: Yes Substance Use Type: Opiates, Tranquilizers Hx Substance Use Treatment: Yes ([facility] 06/10/17 -06/15/17) Family Disease History - Family Disease History Family History: Unable to Obtain Admission Physical Exam BHS - Vital Signs Vital Signs: Vital Signs - 24 hr 08/07/17 16:31 Temperature 96.4 F L Pulse Rate 98 H Respiratory 18 Rate Blood Pressure 123/83 - Physical General Appearance: Yes: Nourished, Appropriately Dressed, Thin, Anxious HEENTM: Yes: EOMI, Hearing grossly Normal, Normal ENT Inspection, Normocephalic , Normal Voice, KSENIA, Pharynx Normal, Tm's normal Respiratory: Yes: Chest Non-Tender, Lungs Clear, Normal Breath Sounds, No Respiratory Distress, No Accessory Muscle Use Neck: Yes: No masses,lesions,Nodules, Thyroid tenderness Breast: Yes: Breast Exam Deferred Cardiology: Yes: Regular Rhythm, Regular Rate Abdominal: Yes: Normal Bowel Sounds, Non Tender, Flat, Soft Genitourinary: Yes: Within Normal Limits Back: Yes: Normal Inspection Musculoskeletal: Yes: full range of Motion, Gait Steady, Pelvis Stable Extremities: Yes: Normal Capillary Refill, Normal Inspection, Normal Range of Motion Neurological: Yes: diversity specialist II-XII NML intact, Fully Oriented, Alert, Motor Strength 5/5, Depressed Affect Integumentary: Yes: Normal Color, Dry, Warm Lymphatic: Yes: Within Normal Limits - Diagnostic (1) Opioid dependence Current Visit: Yes Status: Acute Qualifiers: Substance use status: uncomplicated Qualified Code(s): F11.20 - Opioid dependence, uncomplicated (2) Sedative hypnotic or anxiolytic dependence Current Visit: Yes Status: Acute (3) Difficulty sleeping Current Visit: Yes Status: Acute (4) Weight loss Current Visit: Yes Status: Acute (5) Nicotine dependence Current Visit: Yes Status: Chronic Qualifiers: Nicotine product type: cigarettes Substance use status: uncomplicated Qualified Code(s): F17.210 - Nicotine dependence, cigarettes, uncomplicated BHS Breath Alcohol Content Breath Alcohol Content: 0 Urine Drug Screen - Results Drug Screen Negative: Yes Inpatient Rehab Admission - Initial Determination Are CD services needed?: Yes Free of communicable disease: Yes Not in need of hospitalization: Yes - Rehab Admission Criteria Previous failed treatment: Yes Poor recovery environment: Yes Comorbidities: Yes Lacks judgement: Yes Patient is meeting Inpatient Rehab admission criteria:: Yes
[2017-08-07] MEDS ORDERED: guaiFENesin/D-METHORPHAN HB 10 ML UNIT-DOSE CUPS PO PRN (22:11)
[2017-08-07] MEDS ORDERED: MAG HYDROX/AL HYDROX/SIMETH 30 ML UNIT-DOSE CUP PO PRN (22:11)
[2017-08-07] MEDS ORDERED: LOPERAMIDE HCL 2 MG CAPSULE PO PRN (22:11)
[2017-08-07] MEDS ORDERED: MAGNESIUM CITRATE 300 ML BOTTLE PO PRN (22:11)
[2017-08-07] MEDS ORDERED: MAGNESIUM HYDROX 2400MG/30ML ORAL SUSPENSION 30 ML CUP PO PRN (22:11)
[2017-08-07] MEDS ORDERED: MENTHOL/PHENOL 1 EACH UD MM PRN (22:11)
[2017-08-07] MEDS ORDERED: ACETAMINOPHEN 325 MG TABLET (FP) PO PRN (22:11)
[2017-08-07] MEDS ORDERED: IBUPROFEN 400 MG TABLET (FP) PO PRN (22:11)
[2017-08-07] MEDS ORDERED: P-EPHED 60MG/TRIPROLIDI 2.5MG TABLET PO PRN (22:11)
[2017-08-07] MEDS ORDERED: NICOTINE POLACRILEX 2 MG GUM BUC PRN (22:23)
[2017-08-07] MEDS: MELATONIN 5 MG TABLETS PO PRN (23:41)
[2017-08-07 23:45] LABS: URINE APPEARANCE CLEAR; URINE BILIRUBIN NEGATIVE (<2.0 mg/dL); URINE COLOR YELLOW; URINE GLUCOSE (UA) NEGATIVE (NEGATIVE); URINE KETONE NEGATIVE (NEGATIVE); URINE LEUK ESTERASE NEGATIVE (NEGATIVE); URINE NITRITE NEGATIVE (NEGATIVE); URINE PROTEIN NEGATIVE (NEGATIVE); URINE UROBILINOGEN NEGATIVE mg/dL (0.2-1.0)
--- NOTE | 2017-08-08 08:13 | HP ---
Psychiatrist Admission - Data Date of interview: 08/08/17 Admission source: [facility] Identifying data: This is the first 5N inpatient rehabilitation admission for this 32 years old single Citizen [place] male, father of a 10 years old daughter, unemployed, domiciled living with his mother. Medical History: Patient was admitted to [facility] due to drug overdose. Surgery for right inguinal herna repair. Smoked 10 cigarettes daily. Psychiatric History: Denies history of previous psychiatric treatment, but reports has been feeling anxious, depressed and unable to sleep. Physical/Sexual Abuse/Trauma History: Denies history of verbal, physical or sexual abuse as well as DV relationship. No service Additional Comment: Reports history of 2 previous misdemeanor arrests. Denies being on probation at present Vital Signs: Vital Signs - 24 hr 08/07/17 08/07/17 08/08/17 16:31 23:15 00:30 Temperature 96.4 F L 98.2 F Pulse Rate 98 H 102 H Respiratory 18 18 18 Rate Blood Pressure 123/83 110/86 08/08/17 08/08/17 03:30 06:46 Temperature Pulse Rate Respiratory 18 18 Rate Blood Pressure Allergies/Adverse Reactions: Allergies Allergy/AdvReac Type Severity Reaction Status Date / Time No Known Allergies Allergy Verified 08/07/17 21:41 Date of last physical exam: 08/07/17 Concur with the findings of this exam: Yes - Substance Abuse/Tx History Hx Alcohol Use: No Hx Substance Use: Yes Substance Use Type: Opiates, Tranquilizers Hx Substance Use Treatment: Yes (a few detox.) Mental Status Exam - Mental Status Exam Alert and Oriented to: Time, Place, Person Cognitive Function: Grossly Intact Patient Appearance: Well Groomed Mood: Sad, Anxious Affect: Appropriate, Mood Congruent Patient Behavior: Appropriate, Cooperative Speech Pattern: Clear, Appropriate Voice Loudness: Normal Thought Process: Goal Oriented Thought Disorder: Not Present Hallucinations: Denies Suicidal Ideation: Denies Homicidal Ideation: Denies Insight/Judgement: Fair Sleep: Poorly, Difficulty falling asleep Appetite: Fair Muscle strength/Tone: Normal Gait/Station: Normal Psychiatric Findings - Problem List ([place] 1, 2,3) (1) Benzodiazepine dependence Current Visit: Yes Status: Acute (2) Opioid dependence Current Visit: Yes Status: Acute Qualifiers: Substance use status: uncomplicated Qualified Code(s): F11.20 - Opioid dependence, uncomplicated (3) Nicotine dependence Current Visit: Yes Status: Chronic Qualifiers: Nicotine product type: cigarettes Substance use status: uncomplicated Qualified Code(s): F17.210 - Nicotine dependence, cigarettes, uncomplicated (4) Anxiety disorder, unspecified Current Visit: Yes Status: Acute - Initial Treatment Plan Initial Treatment Plan: Discussed indications and properties of Remeron 15 mg po hs, patient agreed to start, will add medication andl monitor progress.
[2017-08-08] MEDS: PRENATAL VITAMINS W/ FOLIC ACID TABLET (FP) PO SCH (10:18)
[2017-08-08] MEDS: NICOTINE 14 MG/24 HOURS TOPICAL PATCH TD SCH (10:18)
[2017-08-08] MEDS: THIAMINE HCL 100 MG TABLET (FP) PO SCH (21:34)
[2017-08-08] MEDS: MELATONIN 5 MG TABLETS PO PRN (21:34)
--- NOTE | 2017-08-09 09:49 | EKG ---
Test Reason : Blood Pressure : / mmHG Vent. Rate : 069 BPM Atrial Rate : 069 BPM P-R Int : 164 ms QRS Dur : 094 ms QT Int : 380 ms P-R-T Axes : 025 012 024 degrees QTc Int : 407 ms NORMAL SINUS RHYTHM NORMAL ECG WHEN COMPARED WITH ECG OF 04-AUG-2017 14:15, NO SIGNIFICANT CHANGE WAS FOUND Confirmed by JOEY ESPINOZA MD ([id number]) on 08/09/2017 9:49:10 AM Referred By: Confirmed By:JOEY ESPINOZA MD
[2017-08-09] MEDS: PRENATAL VITAMINS W/ FOLIC ACID TABLET (FP) PO SCH (10:12)
[2017-08-09] MEDS: NICOTINE 14 MG/24 HOURS TOPICAL PATCH TD SCH (10:12)
[2017-08-09] MEDS: THIAMINE HCL 100 MG TABLET (FP) PO SCH (21:48)
[2017-08-09] MEDS: MELATONIN 5 MG TABLETS PO PRN (21:48)
[2017-08-10] MEDS: PRENATAL VITAMINS W/ FOLIC ACID TABLET (FP) PO SCH (10:21)
[2017-08-10] MEDS: NICOTINE 14 MG/24 HOURS TOPICAL PATCH TD SCH (10:22)
[2017-08-10] MEDS: THIAMINE HCL 100 MG TABLET (FP) PO SCH (22:08)
[2017-08-10] MEDS: MELATONIN 5 MG TABLETS PO PRN (22:09)
[2017-08-11] MEDS: NICOTINE 14 MG/24 HOURS TOPICAL PATCH TD SCH (10:14)
[2017-08-11] MEDS: PRENATAL VITAMINS W/ FOLIC ACID TABLET (FP) PO SCH (10:14)
[2017-08-11] MEDS: THIAMINE HCL 100 MG TABLET (FP) PO SCH (21:34)
[2017-08-11] MEDS: MELATONIN 5 MG TABLETS PO PRN (21:34)
[2017-08-11] MEDS: hydrOXYzine PAMOATE 50 MG CAPSULE (FP) PO PRN (21:35)
[2017-08-12] MEDS: PRENATAL VITAMINS W/ FOLIC ACID TABLET (FP) PO SCH (10:21)
[2017-08-12] MEDS: NICOTINE 14 MG/24 HOURS TOPICAL PATCH TD SCH (10:21)
[2017-08-12] MEDS: THIAMINE HCL 100 MG TABLET (FP) PO SCH (21:48)
[2017-08-12] MEDS: MELATONIN 5 MG TABLETS PO PRN (21:49)
[2017-08-12] MEDS: hydrOXYzine PAMOATE 50 MG CAPSULE (FP) PO PRN (21:50)
[2017-08-13] MEDS: NICOTINE 14 MG/24 HOURS TOPICAL PATCH TD SCH (10:29)
[2017-08-13] MEDS: PRENATAL VITAMINS W/ FOLIC ACID TABLET (FP) PO SCH (10:29)
[2017-08-13] MEDS: THIAMINE HCL 100 MG TABLET (FP) PO SCH (21:49)
[2017-08-13] MEDS: MELATONIN 5 MG TABLETS PO PRN (21:50)
[2017-08-13] MEDS: hydrOXYzine PAMOATE 50 MG CAPSULE (FP) PO PRN (21:51)
[2017-08-14] MEDS: PRENATAL VITAMINS W/ FOLIC ACID TABLET (FP) PO SCH (10:25)
[2017-08-14] MEDS: NICOTINE 14 MG/24 HOURS TOPICAL PATCH TD SCH (10:25)
[2017-08-14] MEDS: MELATONIN 5 MG TABLETS PO PRN (21:53)
[2017-08-14] MEDS: THIAMINE HCL 100 MG TABLET (FP) PO SCH (21:53)
[2017-08-14] MEDS: hydrOXYzine PAMOATE 50 MG CAPSULE (FP) PO PRN (21:53)
[2017-08-15] MEDS: PRENATAL VITAMINS W/ FOLIC ACID TABLET (FP) PO SCH (10:23)
[2017-08-15] MEDS: NICOTINE 14 MG/24 HOURS TOPICAL PATCH TD SCH (10:24)
[2017-08-15] MEDS: THIAMINE HCL 100 MG TABLET (FP) PO SCH (21:47)
[2017-08-15] MEDS: MELATONIN 5 MG TABLETS PO PRN (21:47)
[2017-08-16] MEDS: PRENATAL VITAMINS W/ FOLIC ACID TABLET (FP) PO SCH (10:45)
[2017-08-16] MEDS: NICOTINE 14 MG/24 HOURS TOPICAL PATCH TD SCH (10:46)
[2017-08-16] MEDS: THIAMINE HCL 100 MG TABLET (FP) PO SCH (21:35)
[2017-08-16] MEDS: hydrOXYzine PAMOATE 50 MG CAPSULE (FP) PO PRN (21:35)
[2017-08-16] MEDS: MELATONIN 5 MG TABLETS PO PRN (21:35)
[2017-08-17 07:26] VITALS: BP 133/77; PULSE 76; TEMP 98.1
[2017-08-17] MEDS: NICOTINE 14 MG/24 HOURS TOPICAL PATCH TD SCH (10:45)
[2017-08-17] MEDS: PRENATAL VITAMINS W/ FOLIC ACID TABLET (FP) PO SCH (10:45)
--- NOTE | 2017-08-17 13:30 | PN ---
[facility] Progress Note Note: patient has completed his 10 days treatment and met his goals, stable for discharge today
== END 2017-08-17 12:30 | disposition home or self-care (01) | DRG 772 ==
LOC: YASAS 14:52 → Y5N 18:58
PROVIDERS: ADMIT Psychiatry & Neurology Psychiatry; ATTEND Psychiatry & Neurology Psychiatry
PROC: HZ42ZZZ Group Counseling for Substance Abuse Treatment, Cognitive-Behavioral (ICD-10-PCS; principal; 2017-08-07)
DX: F13.20 Sedative, hypnotic or anxiolytic dependence, uncomplicated (principal); F17.210 Nicotine dependence, cigarettes, uncomplicated; F41.9 Anxiety disorder, unspecified; F32.9 Major depressive disorder, single episode, unspecified; R63.4 Abnormal weight loss; Z68.26 Body mass index [BMI] 26.0-26.9, adult
CPT/HCPCS: 36415; 81003; 86593; 93005; 93010

== ENCOUNTER 2021-01-19 13:11 | Inpatient (IN) | payer OTHER ==
[2021-01-19] MEDS ORDERED: BISMUTH SUBSALICYLATE 262 MG/15 ML BTL PO PRN (13:50)
[2021-01-19] MEDS ORDERED: methaDONE HCL 10 MG TABLET (FOR DETOX USE ONLY) PO ONE (13:50)
[2021-01-19] MEDS ORDERED: MAGNESIUM HYDROX 2400MG/30ML ORAL SUSPENSION 30 ML CUP PO PRN (13:50)
[2021-01-19] MEDS ORDERED: NALOXONE (NARCAN) HCL 4 MG/0.1 ML SPRAY NS PRN (13:50)
[2021-01-19] MEDS ORDERED: NICOTINE 10 MG CARTRIDGE (INHALER) IH PRN (13:50)
[2021-01-19] MEDS ORDERED: MENTHOL/PHENOL 1 EACH UD MM PRN (13:50)
[2021-01-19] MEDS ORDERED: MAGNESIUM CITRATE 300 ML BOTTLE PO PRN (13:50)
[2021-01-19] MEDS ORDERED: ACETAMINOPHEN 325 MG TABLET (FP) PO PRN (13:50)
[2021-01-19] MEDS ORDERED: diazePAM 5 MG TABLET PO ONE (14:34)
[2021-01-19 14:38] VITALS: BMI 33.3
[2021-01-19] MEDS: hydrOXYzine PAMOATE 25 MG CAPSULE (FP) PO SCH ×3 (16:22→22:14)
[2021-01-19] MEDS: METHOCARBAMOL 500 MG TABLET PO PRN ×2 (17:00→23:01)
[2021-01-19] MEDS: THIAMINE HCL 100 MG TABLET (FP) PO SCH (22:14)
[2021-01-19] MEDS: MELATONIN 5 MG TABLETS PO SCH (22:14)
[2021-01-19] MEDS: cloNIDine HCL 0.1 MG TABLET PO PRN (22:14)
[2021-01-19] MEDS: diazePAM 5 MG TABLET PO PRN (23:28)
[2021-01-19] MEDS: MAG HYDROX/AL HYDROX/SIMETH 30 ML UNIT-DOSE CUP PO PRN (23:30)
[2021-01-20] MEDS ORDERED: methaDONE HCL 10 MG TABLET (FOR DETOX USE ONLY) PO ONE (00:48)
[2021-01-20] MEDS: IBUPROFEN 400 MG TABLET (FP) PO PRN (00:58)
[2021-01-20] MEDS: hydrOXYzine PAMOATE 25 MG CAPSULE (FP) PO SCH ×5 (06:09→22:23)
[2021-01-20] MEDS: METHOCARBAMOL 500 MG TABLET PO PRN ×2 (06:09→17:26)
[2021-01-20] MEDS: diazePAM 5 MG TABLET PO PRN ×3 (06:09→22:23)
[2021-01-20] MEDS ORDERED: methaDONE HCL 10 MG TABLET (FOR DETOX USE ONLY) ONE (08:23)
[2021-01-20 11:55] LABS: HEMATOCRIT 45.5 % (35.4-49); HEMOGLOBIN 15.6 GM/dL (11.7-16.9); MCH 30.2 pg (25.7-33.7); MCHC 34.3 g/dl (32.0-35.9); MEAN CELL VOLUME 88.3 fl (80-96); PLATELET COUNT 243 10^3/uL (134-434); RBC 5.15 M/mm3 (4.00-5.60); RDW 13.1 % (11.9-15.9); WHITE BLOOD COUNT 11.4 K/mm3 (4.0-10.0)
[2021-01-20] MEDS ORDERED: FLU VACC QS2021-22(6MOS UP)/PF 60 MCG/0.5 ML SYRINGE IM ONE (12:00)
[2021-01-20 12:34] LABS: BLOOD UREA NITROGEN 13.2 mg/dL (7-18)
[2021-01-20 12:35] LABS: CALCIUM 9.5 mg/dL (8.5-10.1)
[2021-01-20 12:40] LABS: CREATININE 1.1 mg/dL (0.55-1.3)
[2021-01-20 12:41] LABS: BILIRUBIN,TOTAL 0.5 mg/dL (0.2-1); TOT PROT 7.9 g/dl (6.4-8.2)
[2021-01-20 13:03] LABS: HIV INTERPRETATION NEGATIVE (NEGATIVE)
[2021-01-20] MEDS: MAG HYDROX/AL HYDROX/SIMETH 30 ML UNIT-DOSE CUP PO PRN (17:28)
[2021-01-20] MEDS: cloNIDine HCL 0.1 MG TABLET PO PRN (17:29)
[2021-01-20] MEDS: THIAMINE HCL 100 MG TABLET (FP) PO SCH (22:23)
[2021-01-20] MEDS: MELATONIN 5 MG TABLETS PO SCH (22:23)
[2021-01-20] MEDS: ACETAMINOPHEN 325 MG TABLET (FP) PO PRN (22:24)
[2021-01-21] MEDS: diazePAM 5 MG TABLET PO PRN ×4 (04:51→22:04)
[2021-01-21] MEDS: ONDANSETRON *ODT* 4 MG TABLET SL PRN ×2 (04:54→18:26)
[2021-01-21] MEDS: hydrOXYzine PAMOATE 25 MG CAPSULE (FP) PO SCH ×5 (05:10→22:04)
[2021-01-21] MEDS ORDERED: methaDONE HCL 10 MG TABLET (FOR DETOX USE ONLY) PO ONE (10:00)
[2021-01-21] MEDS: IBUPROFEN 400 MG TABLET (FP) PO PRN (18:48)
[2021-01-21] MEDS: METHOCARBAMOL 500 MG TABLET PO PRN (22:03)
[2021-01-21] MEDS: MELATONIN 5 MG TABLETS PO SCH (22:03)
[2021-01-21] MEDS: THIAMINE HCL 100 MG TABLET (FP) PO SCH (22:04)
[2021-01-22] MEDS: ACETAMINOPHEN 325 MG TABLET (FP) PO PRN (02:16)
[2021-01-22] MEDS: diazePAM 5 MG TABLET PO PRN ×5 (02:16→22:41)
[2021-01-22] MEDS: hydrOXYzine PAMOATE 25 MG CAPSULE (FP) PO SCH (05:18)
[2021-01-22] MEDS: ONDANSETRON *ODT* 4 MG TABLET SL PRN ×2 (05:20→17:39)
[2021-01-22] MEDS: MAG HYDROX/AL HYDROX/SIMETH 30 ML UNIT-DOSE CUP PO PRN ×2 (06:02→22:43)
[2021-01-22] MEDS ORDERED: methaDONE HCL 10 MG TABLET (FOR DETOX USE ONLY) ONE (09:48)
[2021-01-22] MEDS: MELATONIN 5 MG TABLETS PO SCH (22:40)
[2021-01-22] MEDS: THIAMINE HCL 100 MG TABLET (FP) PO SCH (22:40)
[2021-01-22] MEDS: METHOCARBAMOL 500 MG TABLET PO PRN (22:42)
[2021-01-23] MEDS: ONDANSETRON *ODT* 4 MG TABLET SL PRN ×2 (05:35→17:58)
[2021-01-23] MEDS ORDERED: methaDONE HCL 10 MG TABLET (FOR DETOX USE ONLY) PO ONE (10:00)
[2021-01-23] MEDS: METHOCARBAMOL 500 MG TABLET PO PRN ×2 (10:32→22:24)
[2021-01-23] MEDS: hydrOXYzine PAMOATE 25 MG CAPSULE (FP) PO PRN ×2 (10:32→17:57)
[2021-01-23] MEDS: MELATONIN 5 MG TABLETS PO SCH (22:23)
[2021-01-23] MEDS: THIAMINE HCL 100 MG TABLET (FP) PO SCH (22:23)
[2021-01-23] MEDS: MAG HYDROX/AL HYDROX/SIMETH 30 ML UNIT-DOSE CUP PO PRN (22:25)
[2021-01-24] MEDS: ONDANSETRON *ODT* 4 MG TABLET SL PRN (06:23)
[2021-01-24] MEDS: METHOCARBAMOL 500 MG TABLET PO PRN (06:23)
[2021-01-24 06:25] VITALS: BP 118/72; PULSE 76; TEMP 97.4
[2021-01-24] MEDS: IBUPROFEN 400 MG TABLET (FP) PO PRN (08:29)
== END 2021-01-24 09:28 | disposition home or self-care (01) | DRG 773 ==
LOC: YASAS 13:11 → Y3N 14:49
PROVIDERS: ADMIT Allergy & Immunology; ATTEND Allergy & Immunology
PROC: HZ2ZZZZ Detoxification Services for Substance Abuse Treatment (ICD-10-PCS; principal; 2021-01-19)
DX: F11.23 Opioid dependence with withdrawal (principal); F17.210 Nicotine dependence, cigarettes, uncomplicated; F19.24 Other psychoactive substance dependence with psychoactive substance-induced mood disorder; G47.00 Insomnia, unspecified
CPT/HCPCS: 36415; 80053; 85027; 86780; 87389; C9803; J0735; Q0162; U0003; U0005

== ENCOUNTER 2021-02-16 10:08 | Inpatient (IN) | payer OTHER ==
[2021-02-16] MEDS ORDERED: MAGNESIUM HYDROX 2400MG/30ML ORAL SUSPENSION 30 ML CUP PO PRN (10:40)
[2021-02-16] MEDS ORDERED: NICOTINE 10 MG CARTRIDGE (INHALER) IH PRN (10:40)
[2021-02-16] MEDS ORDERED: ACETAMINOPHEN 325 MG TABLET (FP) PO PRN (10:40)
[2021-02-16] MEDS ORDERED: IBUPROFEN 400 MG TABLET (FP) PO PRN (10:40)
[2021-02-16] MEDS ORDERED: BISMUTH SUBSALICYLATE 524 MG/30 ML PO PRN (10:40)
[2021-02-16] MEDS ORDERED: MENTHOL/PHENOL 1 EACH UD MM PRN (10:40)
[2021-02-16] MEDS ORDERED: MAG HYDROX/AL HYDROX/SIMETH 30 ML UNIT-DOSE CUP PO PRN (10:40)
[2021-02-16] MEDS ORDERED: MAGNESIUM CITRATE 300 ML BOTTLE PO PRN (10:40)
[2021-02-16] MEDS ORDERED: methaDONE HCL 10 MG TABLET (FOR DETOX USE ONLY) PO ONE (11:15)
[2021-02-16 11:25] VITALS: BMI 31.1
[2021-02-16 14:49] LABS: HEMATOCRIT 41.7 % (35.4-49); HEMOGLOBIN 14.3 GM/dL (11.7-16.9); MCH 30.6 pg (25.7-33.7); MCHC 34.4 g/dl (32.0-35.9); MEAN PLT VOLUME 8.4 fl (7.5-11.1); PLATELET COUNT 254 10^3/uL (134-434); RBC 4.68 M/mm3 (4.00-5.60); RDW 13.2 % (11.9-15.9); WHITE BLOOD COUNT 8.5 K/mm3 (4.0-10.0)
[2021-02-16 14:56] LABS: CALCIUM 9.3 mg/dL (8.5-10.1)
[2021-02-16 14:57] LABS: ALBUMIN 4.2 g/dl (3.4-5.0); BLOOD UREA NITROGEN 10.5 mg/dL (7-18)
[2021-02-16 15:00] LABS: CREATININE 0.9 mg/dL (0.55-1.3)
[2021-02-16 15:01] LABS: BILIRUBIN,TOTAL 0.9 mg/dL (0.2-1)
[2021-02-16 15:02] LABS: TOT PROT 7.6 g/dl (6.4-8.2)
[2021-02-16] MEDS: hydrOXYzine PAMOATE 25 MG CAPSULE (FP) PO SCH ×3 (16:03→22:12)
[2021-02-16] MEDS: PRENATAL VITAMINS W/ FOLIC ACID TABLET (FP) PO SCH (16:03)
[2021-02-16] MEDS: NICOTINE 14 MG/24 HOURS TOPICAL PATCH TD SCH (16:03)
[2021-02-16] MEDS: METHOCARBAMOL 500 MG TABLET PO PRN (17:55)
[2021-02-16] MEDS: cloNIDine HCL 0.1 MG TABLET PO PRN (18:09)
[2021-02-16] MEDS: ONDANSETRON *ODT* 4 MG TABLET SL PRN (18:31)
[2021-02-16] MEDS ORDERED: MELATONIN 5 MG TABLETS PO SCH (22:00)
[2021-02-16] MEDS: traZODone HCL 100 MG TABLET (FP) PO SCH (22:12)
[2021-02-16] MEDS: THIAMINE HCL 100 MG TABLET (FP) PO SCH (22:13)
[2021-02-17] MEDS: METHOCARBAMOL 500 MG TABLET PO PRN ×2 (00:50→22:05)
[2021-02-17] MEDS: cloNIDine HCL 0.1 MG TABLET PO PRN (00:50)
[2021-02-17] MEDS: hydrOXYzine PAMOATE 25 MG CAPSULE (FP) PO SCH ×5 (05:16→22:05)
[2021-02-17] MEDS ORDERED: methaDONE HCL 10 MG TABLET (FOR DETOX USE ONLY) ONE (09:24)
[2021-02-17] MEDS: PRENATAL VITAMINS W/ FOLIC ACID TABLET (FP) PO SCH (10:13)
[2021-02-17] MEDS: ONDANSETRON *ODT* 4 MG TABLET SL PRN ×2 (10:15→22:09)
[2021-02-17] MEDS: NICOTINE 14 MG/24 HOURS TOPICAL PATCH TD SCH (10:16)
[2021-02-17] MEDS: diazePAM 5 MG TABLET PO PRN ×2 (17:44→22:06)
[2021-02-17] MEDS: ACETAMINOPHEN 325 MG TABLET (FP) PO PRN (17:45)
[2021-02-17] MEDS: THIAMINE HCL 100 MG TABLET (FP) PO SCH (22:05)
[2021-02-17] MEDS: traZODone HCL 100 MG TABLET (FP) PO SCH (22:07)
[2021-02-18] MEDS: hydrOXYzine PAMOATE 25 MG CAPSULE (FP) PO SCH ×5 (07:13→22:07)
[2021-02-18] MEDS: METHOCARBAMOL 500 MG TABLET PO PRN ×2 (08:53→22:07)
[2021-02-18] MEDS: diazePAM 5 MG TABLET PO PRN ×3 (08:53→22:06)
[2021-02-18] MEDS ORDERED: methaDONE HCL 10 MG TABLET (FOR DETOX USE ONLY) PO ONE (10:00)
[2021-02-18] MEDS: cloNIDine HCL 0.1 MG TABLET PO PRN (10:19)
[2021-02-18] MEDS: PRENATAL VITAMINS W/ FOLIC ACID TABLET (FP) PO SCH (10:19)
[2021-02-18] MEDS: NICOTINE 14 MG/24 HOURS TOPICAL PATCH TD SCH (10:19)
[2021-02-18] MEDS: traZODone HCL 100 MG TABLET (FP) PO SCH (22:06)
[2021-02-18] MEDS: THIAMINE HCL 100 MG TABLET (FP) PO SCH (22:07)
[2021-02-19] MEDS: ACETAMINOPHEN 325 MG TABLET (FP) PO PRN (04:46)
[2021-02-19] MEDS: diazePAM 5 MG TABLET PO PRN ×4 (04:48→22:26)
[2021-02-19] MEDS: METHOCARBAMOL 500 MG TABLET PO PRN (04:48)
[2021-02-19] MEDS: hydrOXYzine PAMOATE 25 MG CAPSULE (FP) PO SCH ×5 (06:34→22:25)
[2021-02-19] MEDS ORDERED: methaDONE HCL 10 MG TABLET (FOR DETOX USE ONLY) ONE (09:46)
[2021-02-19] MEDS: PRENATAL VITAMINS W/ FOLIC ACID TABLET (FP) PO SCH (10:11)
[2021-02-19] MEDS: NICOTINE 14 MG/24 HOURS TOPICAL PATCH TD SCH (10:12)
[2021-02-19] MEDS: THIAMINE HCL 100 MG TABLET (FP) PO SCH (22:25)
[2021-02-19] MEDS: traZODone HCL 100 MG TABLET (FP) PO SCH (22:25)
[2021-02-20] MEDS: ONDANSETRON *ODT* 4 MG TABLET SL PRN (03:58)
[2021-02-20] MEDS: diazePAM 5 MG TABLET PO PRN ×2 (04:00→08:59)
[2021-02-20] MEDS: hydrOXYzine PAMOATE 25 MG CAPSULE (FP) PO SCH ×5 (07:14→22:40)
[2021-02-20] MEDS ORDERED: methaDONE HCL 10 MG TABLET (FOR DETOX USE ONLY) PO ONE (10:00)
[2021-02-20] MEDS: PRENATAL VITAMINS W/ FOLIC ACID TABLET (FP) PO SCH (10:11)
[2021-02-20] MEDS: NICOTINE 14 MG/24 HOURS TOPICAL PATCH TD SCH (10:12)
[2021-02-20] MEDS: METHOCARBAMOL 500 MG TABLET PO PRN (17:55)
[2021-02-20] MEDS: THIAMINE HCL 100 MG TABLET (FP) PO SCH (22:39)
[2021-02-20] MEDS: traZODone HCL 100 MG TABLET (FP) PO SCH (22:39)
[2021-02-21] MEDS: hydrOXYzine PAMOATE 25 MG CAPSULE (FP) PO SCH (06:28)
[2021-02-21 09:14] VITALS: BP 133/87; PULSE 92; TEMP 96.8
== END 2021-02-21 09:10 | disposition home or self-care (01) | DRG 773 ==
LOC: YASAS 10:08 → Y3N 11:52
PROVIDERS: ADMIT Allergy & Immunology; ATTEND Allergy & Immunology
PROC: HZ2ZZZZ Detoxification Services for Substance Abuse Treatment (ICD-10-PCS; principal; 2021-02-16)
DX: F11.23 Opioid dependence with withdrawal (principal); F10.20 Alcohol dependence, uncomplicated; F13.20 Sedative, hypnotic or anxiolytic dependence, uncomplicated; F14.20 Cocaine dependence, uncomplicated; F17.210 Nicotine dependence, cigarettes, uncomplicated; F19.280 Other psychoactive substance dependence with psychoactive substance-induced anxiety disorder; F19.282 Other psychoactive substance dependence with psychoactive substance-induced sleep disorder; F19.24 Other psychoactive substance dependence with psychoactive substance-induced mood disorder; F41.9 Anxiety disorder, unspecified; M54.50 Low back pain, unspecified
CPT/HCPCS: 36415; 80053; 85027; 86780; 93005; 93010; C9803; J0735; Q0162; U0003; U0005

== ENCOUNTER 2022-04-17 11:40 | Inpatient (IN) | payer OTHER ==
[2022-04-17 14:45] LABS: BASO % 0.6 % (0-2.0); EOS % 2.3 % (0-4.5); HEMATOCRIT 28.1 % (35.4-49); HEMOGLOBIN 9.2 GM/dL (11.7-16.9); LYMPH % 16.9 % (8-40); MCH 28.6 pg (25.7-33.7); MCHC 32.7 g/dl (32.0-35.9); MEAN CELL VOLUME 87.3 fl (80-96); MEAN PLT VOLUME 6.8 fl (7.5-11.1); MONO % 6.9 % (3.8-10.2); NEUT % 73.3 % (42.8-82.8); PLATELET COUNT 353 10^3/uL (134-434); RBC 3.22 M/mm3 (4.00-5.60); RDW 14.7 % (11.9-15.9); WHITE BLOOD COUNT 7.7 K/mm3 (4.0-10.0)
[2022-04-17 15:07] LABS: CALCIUM 8.7 mg/dL (8.5-10.1)
[2022-04-17 15:08] LABS: ALBUMIN 2.8 g/dl (3.4-5.0)
[2022-04-17 15:11] LABS: CREATININE 0.7 mg/dL (0.55-1.3)
[2022-04-17 15:13] LABS: BILIRUBIN,TOTAL 0.3 mg/dL (0.2-1); TOT PROT 6.2 g/dl (6.4-8.2)
[2022-04-17] MEDS ORDERED: AMPICILLIN NA/SULBACTAM NA 3 GM in SODIUM CHLORIDE 100 ML IVPB ONE (19:35)
[2022-04-18] MEDS ORDERED: VANCOMYCIN 1 GM in D5W (PRE-DOCKED) 1,000 MG/250 ML IVPB ONE (01:27)
[2022-04-18] MEDS ORDERED: VANCOMYCIN/WATER FOR INJ (PEG) 1,000 MG/200 ML BAG IVPB ONE ×2 (01:45→01:46)
[2022-04-18] MEDS: PIPERACILLIN/TAZOB 3.375 GM 3.375 GM in DEXTROSE 5%-WATER - 50 ML IVPB SCH ×4 (03:00→17:57)
[2022-04-18 06:22] VITALS: BMI 35.9
[2022-04-18 08:46] LABS: RETICULOCYTES 5.92 % (0.5-1.5)
[2022-04-18] MEDS: ACETAMINOPHEN 325 MG TABLET (FP) PO PRN (10:35)
[2022-04-18] MEDS: ENOXAPARIN NA (PORCINE) 40 MG/0.4 ML DISP.SYRIN SQ SCH (10:35)
[2022-04-18] MEDS ORDERED: methaDONE HCL 40 MG DISPERSABLE TABLET PO ONE (11:00)
[2022-04-18 11:05] LABS: HEMATOCRIT 26.7 % (35.4-49); HEMOGLOBIN 8.7 GM/dL (11.7-16.9); MCH 28.4 pg (25.7-33.7); MCHC 32.7 g/dl (32.0-35.9); MEAN CELL VOLUME 86.8 fl (80-96); MEAN PLT VOLUME 7.7 fl (7.5-11.1); PLATELET COUNT 322 10^3/uL (134-434); RBC 3.08 M/mm3 (4.00-5.60); RDW 15.4 % (11.9-15.9); WHITE BLOOD COUNT 6.4 K/mm3 (4.0-10.0)
[2022-04-18 11:27] LABS: CALCIUM 8.7 mg/dL (8.5-10.1)
[2022-04-18 11:29] LABS: ALBUMIN 2.6 g/dl (3.4-5.0); BLOOD UREA NITROGEN 10.1 mg/dL (7-18); MAGNESIUM 2.1 mg/dL (1.8-2.4)
[2022-04-18 11:31] LABS: CREATININE 0.7 mg/dL (0.55-1.3)
[2022-04-18 11:32] LABS: BILIRUBIN,TOTAL 0.3 mg/dL (0.2-1); PHOSPHOROUS 4.5 mg/dL (2.5-4.9); TOT PROT 5.7 g/dl (6.4-8.2)
[2022-04-18] MEDS: oxyCODONE HCL 5 MG TABLET PO PRN (13:06)
[2022-04-18 16:17] LABS: PHENCYCLIDINE,URINE NEGATIVE (NEGATIVE)
[2022-04-18 16:18] LABS: COCAINE, UR NEGATIVE (NEGATIVE); URINE AMPHETAMINES NEGATIVE (NEGATIVE)
[2022-04-18 16:20] LABS: METHADONE, UR POSITIVE (NEGATIVE); OPIATES, URI POSITIVE (NEGATIVE); URINE BARBITURATES NEGATIVE (NEGATIVE); URINE BENZODIAZEPINES NEGATIVE (NEGATIVE)
[2022-04-19] MEDS: PIPERACILLIN/TAZOB 3.375 GM 3.375 GM in DEXTROSE 5%-WATER - 50 ML IVPB SCH ×3 (02:10→17:31)
[2022-04-19] MEDS: methaDONE HCL 40 MG DISPERSABLE TABLET PO SCH (06:24)
[2022-04-19] MEDS: oxyCODONE HCL 5 MG TABLET PO PRN (06:33)
[2022-04-19] MEDS: ENOXAPARIN NA (PORCINE) 40 MG/0.4 ML DISP.SYRIN SQ SCH (09:04)
[2022-04-19 09:36] LABS: BASO % 0.9 % (0-2.0); EOS % 4.2 % (0-4.5); HEMATOCRIT 30.3 % (35.4-49); HEMOGLOBIN 9.8 GM/dL (11.7-16.9); LYMPH % 26.4 % (8-40); MCHC 32.3 g/dl (32.0-35.9); MEAN CELL VOLUME 86.7 fl (80-96); MEAN PLT VOLUME 6.9 fl (7.5-11.1); MONO % 8.7 % (3.8-10.2); NEUT % 59.8 % (42.8-82.8); PLATELET COUNT 320 10^3/uL (134-434); RBC 3.49 M/mm3 (4.00-5.60); RDW 14.9 % (11.9-15.9); WHITE BLOOD COUNT 7.1 K/mm3 (4.0-10.0)
[2022-04-19 09:42] LABS: INR 1.24 (0.83-1.09); PROTHROMBIN TIME (PATIENT) 14.3 SEC (9.7-13.0)
[2022-04-19 10:08] LABS: CALCIUM 8.8 mg/dL (8.5-10.1)
[2022-04-19 10:09] LABS: ALBUMIN 2.8 g/dl (3.4-5.0); MAGNESIUM 2.4 mg/dL (1.8-2.4)
[2022-04-19 10:12] LABS: CREATININE 0.9 mg/dL (0.55-1.3)
[2022-04-19 10:13] LABS: BILIRUBIN,TOTAL 0.4 mg/dL (0.2-1); TOT PROT 6.5 g/dl (6.4-8.2)
[2022-04-20] MEDS: PIPERACILLIN/TAZOB 3.375 GM 3.375 GM in DEXTROSE 5%-WATER - 50 ML IVPB SCH ×3 (01:50→18:44)
[2022-04-20] MEDS: methaDONE HCL 40 MG DISPERSABLE TABLET PO SCH (06:34)
[2022-04-20 10:28] LABS: BASO % 0.5 % (0-2.0); EOS % 2.7 % (0-4.5); HEMATOCRIT 32.9 % (35.4-49); HEMOGLOBIN 10.9 GM/dL (11.7-16.9); LYMPH % 24.2 % (8-40); MCH 28.4 pg (25.7-33.7); MEAN CELL VOLUME 85.9 fl (80-96); MEAN PLT VOLUME 7.1 fl (7.5-11.1); MONO % 8.1 % (3.8-10.2); NEUT % 64.5 % (42.8-82.8); PLATELET COUNT 368 10^3/uL (134-434); RBC 3.83 M/mm3 (4.00-5.60); RDW 15.4 % (11.9-15.9); WHITE BLOOD COUNT 8.6 K/mm3 (4.0-10.0)
[2022-04-20 10:35] LABS: INR 1.25 (0.83-1.09); PROTHROMBIN TIME (PATIENT) 14.4 SEC (9.7-13.0)
[2022-04-20 10:58] LABS: CALCIUM 8.9 mg/dL (8.5-10.1)
[2022-04-20 10:59] LABS: ALBUMIN 3.1 g/dl (3.4-5.0); BLOOD UREA NITROGEN 14.2 mg/dL (7-18); MAGNESIUM 2.5 mg/dL (1.8-2.4)
[2022-04-20] MEDS: oxyCODONE HCL 5 MG TABLET PO PRN (10:59)
[2022-04-20 11:02] LABS: CREATININE 0.9 mg/dL (0.55-1.3)
[2022-04-20 11:04] LABS: BILIRUBIN,TOTAL 0.5 mg/dL (0.2-1); TOT PROT 6.9 g/dl (6.4-8.2)
[2022-04-20] MEDS: ENOXAPARIN NA (PORCINE) 40 MG/0.4 ML DISP.SYRIN SQ SCH (11:24)
[2022-04-21] MEDS: PIPERACILLIN/TAZOB 3.375 GM 3.375 GM in DEXTROSE 5%-WATER - 50 ML IVPB SCH ×3 (02:47→17:36)
[2022-04-21] MEDS ORDERED: PIPERACILLIN/TAZOBACTAM 3.375 GM VIAL IVPB ONE (02:59)
[2022-04-21] MEDS: oxyCODONE HCL 5 MG TABLET PO PRN (03:17)
[2022-04-21] MEDS: methaDONE HCL 40 MG DISPERSABLE TABLET PO SCH (05:22)
[2022-04-21] MEDS: ENOXAPARIN NA (PORCINE) 40 MG/0.4 ML DISP.SYRIN SQ SCH (10:32)
[2022-04-21 11:22] LABS: BASO % 0.8 % (0-2.0); EOS % 3.9 % (0-4.5); HEMATOCRIT 34.4 % (35.4-49); HEMOGLOBIN 11.3 GM/dL (11.7-16.9); LYMPH % 32.1 % (8-40); MCH 28.8 pg (25.7-33.7); MEAN CELL VOLUME 87.4 fl (80-96); MEAN PLT VOLUME 7.4 fl (7.5-11.1); MONO % 8.2 % (3.8-10.2); PLATELET COUNT 354 10^3/uL (134-434); RBC 3.94 M/mm3 (4.00-5.60); RDW 15.3 % (11.9-15.9); WHITE BLOOD COUNT 7.4 K/mm3 (4.0-10.0)
[2022-04-21 11:25] LABS: INR 1.3 (0.83-1.09)
[2022-04-21 11:42] LABS: ALBUMIN 3.3 g/dl (3.4-5.0); BILIRUBIN,TOTAL 0.4 mg/dL (0.2-1); BLOOD UREA NITROGEN 15.9 mg/dL (7-18); CREATININE 0.9 mg/dL (0.55-1.3)
[2022-04-21 11:44] LABS: CALCIUM 9.1 mg/dL (8.5-10.1); MAGNESIUM 2.5 mg/dL (1.8-2.4)
[2022-04-21] MEDS: ACETAMINOPHEN 1000 MG/100 ML BAG IVPB PRN (17:35)
[2022-04-21] MEDS: ACETAMINOPHEN 325 MG TABLET (FP) PO PRN (22:14)
[2022-04-22] MEDS: ACETAMINOPHEN 1000 MG/100 ML BAG IVPB PRN (01:56)
[2022-04-22] MEDS: PIPERACILLIN/TAZOB 3.375 GM 3.375 GM in DEXTROSE 5%-WATER - 50 ML IVPB SCH ×3 (02:28→18:00)
[2022-04-22] MEDS: methaDONE HCL 40 MG DISPERSABLE TABLET PO SCH (06:25)
[2022-04-22] MEDS: ENOXAPARIN NA (PORCINE) 40 MG/0.4 ML DISP.SYRIN SQ SCH (09:13)
[2022-04-23] MEDS: ACETAMINOPHEN 325 MG TABLET (FP) PO PRN ×2 (01:56→15:55)
[2022-04-23] MEDS: PIPERACILLIN/TAZOB 3.375 GM 3.375 GM in DEXTROSE 5%-WATER - 50 ML IVPB SCH ×3 (03:13→17:45)
[2022-04-23] MEDS: methaDONE HCL 40 MG DISPERSABLE TABLET PO SCH (06:01)
[2022-04-23] MEDS: ENOXAPARIN NA (PORCINE) 40 MG/0.4 ML DISP.SYRIN SQ SCH (09:29)
[2022-04-23] MEDS: KETOROLAC TROMETHAMINE 15 MG/ML VIAL IVPUSH PRN (17:45)
[2022-04-24] MEDS: PIPERACILLIN/TAZOB 3.375 GM 3.375 GM in DEXTROSE 5%-WATER - 50 ML IVPB SCH ×3 (02:09→17:39)
[2022-04-24] MEDS: methaDONE HCL 40 MG DISPERSABLE TABLET PO SCH (06:10)
[2022-04-24] MEDS: ENOXAPARIN NA (PORCINE) 40 MG/0.4 ML DISP.SYRIN SQ SCH (11:08)
[2022-04-24] MEDS: ACETAMINOPHEN 325 MG TABLET (FP) PO PRN (23:39)
[2022-04-25] MEDS: PIPERACILLIN/TAZOB 3.375 GM 3.375 GM in DEXTROSE 5%-WATER - 50 ML IVPB SCH ×3 (01:23→17:57)
[2022-04-25] MEDS: KETOROLAC TROMETHAMINE 15 MG/ML VIAL IVPUSH PRN (02:41)
[2022-04-25] MEDS: methaDONE HCL 40 MG DISPERSABLE TABLET PO SCH (06:23)
[2022-04-25] MEDS: ENOXAPARIN NA (PORCINE) 40 MG/0.4 ML DISP.SYRIN SQ SCH (09:31)
[2022-04-25 09:41] LABS: BASO % 1.1 % (0-2.0); HEMATOCRIT 34.1 % (35.4-49); HEMOGLOBIN 11.4 GM/dL (11.7-16.9); LYMPH % 37.5 % (8-40); MCH 28.9 pg (25.7-33.7); MCHC 33.5 g/dl (32.0-35.9); MEAN CELL VOLUME 86.4 fl (80-96); MEAN PLT VOLUME 7.1 fl (7.5-11.1); MONO % 9.2 % (3.8-10.2); NEUT % 49.2 % (42.8-82.8); PLATELET COUNT 326 10^3/uL (134-434); RBC 3.94 M/mm3 (4.00-5.60); RDW 15.2 % (11.9-15.9); WHITE BLOOD COUNT 6.3 K/mm3 (4.0-10.0)
[2022-04-25 10:18] LABS: ALBUMIN 3.4 g/dl (3.4-5.0); BILIRUBIN,TOTAL 0.5 mg/dL (0.2-1); BLOOD UREA NITROGEN 13.6 mg/dL (7-18); CALCIUM 9.2 mg/dL (8.5-10.1); CREATININE 0.9 mg/dL (0.55-1.3); MAGNESIUM 2.1 mg/dL (1.8-2.4); TOT PROT 6.9 g/dl (6.4-8.2)
[2022-04-25 21:40] VITALS: RESP 20
[2022-04-26] MEDS: methaDONE HCL 40 MG DISPERSABLE TABLET PO SCH (06:34)
[2022-04-26 07:28] VITALS: BP 126/66; PULSE 89; TEMP 98.6
[2022-04-26 08:53] LABS: BASO % 0.7 % (0-2.0); EOS % 2.5 % (0-4.5); HEMATOCRIT 36.2 % (35.4-49); HEMOGLOBIN 11.8 GM/dL (11.7-16.9); LYMPH % 30.8 % (8-40); MCH 28.4 pg (25.7-33.7); MCHC 32.6 g/dl (32.0-35.9); MEAN CELL VOLUME 87.2 fl (80-96); MEAN PLT VOLUME 7.8 fl (7.5-11.1); PLATELET COUNT 347 10^3/uL (134-434); RBC 4.15 M/mm3 (4.00-5.60); RDW 15.3 % (11.9-15.9); WHITE BLOOD COUNT 6.8 K/mm3 (4.0-10.0)
[2022-04-26 08:59] LABS: CALCIUM 9.4 mg/dL (8.5-10.1)
[2022-04-26 09:03] LABS: ALBUMIN 3.5 g/dl (3.4-5.0); BLOOD UREA NITROGEN 12.4 mg/dL (7-18)
[2022-04-26 09:04] LABS: CREATININE 0.9 mg/dL (0.55-1.3); TOT PROT 6.9 g/dl (6.4-8.2)
[2022-04-26 09:05] LABS: BILIRUBIN,TOTAL 0.3 mg/dL (0.2-1)
[2022-04-26] MEDS: ENOXAPARIN NA (PORCINE) 40 MG/0.4 ML DISP.SYRIN SQ SCH (09:30)
[2022-04-26] MEDS ORDERED: MULTIVITAMINS THER W-MINERALS COMBO TABLET (FP) PO SCH (10:00)
[2022-04-26] MEDS ORDERED: CEFTRIAXONE 2 GM in DEXTROSE 5%-WATER 100 ML IVPB SCH (10:00)
[2022-04-27] MEDS ORDERED: methaDONE HCL 40 MG DISPERSABLE TABLET PO SCH (06:00)
== END 2022-04-26 15:24 | disposition home or self-care (01) | DRG 721 ==
LOC: JER 11:40 → JERBED 20:50 → J8W 04-18 04:50
PROVIDERS: ADMIT Internal Medicine; ATTEND Nurse Practitioner Family
PROC: 0Y9J30Z Drainage of Left Lower Leg with Drainage Device, Percutaneous Approach (ICD-10-PCS; principal; 2022-04-19)
PROC: 0YPBX0Z Removal of Drainage Device from Left Lower Extremity, External Approach (ICD-10-PCS; 2022-04-26)
DX: T81.41XA Infection following a procedure, superficial incisional surgical site, initial encounter (principal); L03.116 Cellulitis of left lower limb; M86.8X6 Other osteomyelitis, lower leg; F11.20 Opioid dependence, uncomplicated; F17.210 Nicotine dependence, cigarettes, uncomplicated; F32.A Depression, unspecified; T81.40XA Infection following a procedure, unspecified, initial encounter; Y82.8 Other medical devices associated with adverse incidents; E66.9 Obesity, unspecified; Z68.35 Body mass index [BMI] 35.0-35.9, adult
CPT/HCPCS: 0241U-QW; 10030; 36415; 49424; 73552-TC-LT-FY; 73560-TC-LT-FY; 73590-TC-LT-FY; 73701-TC-RT; 73722-LT; 76080-TC-FY; 80053; 80307; 82728; 82962; 83540; 83550; 83605; 83735; 84100; 85025; 85027; 85045; 85610; 85651; 86140; 87040; 87070; 87075; 87081; 87102; 87116; 87205; 87206; 87210; 93970-TC; 97116-GP; 97161-GP; 99285-25; Q9967

== ENCOUNTER 2022-04-27 13:46 | Day surgery (SDC) | payer OTHER ==
[2022-04-27] MEDS ORDERED: CEFTRIAXONE 2 GM in DEXTROSE 5%-WATER 100 ML IVPB ONE (15:00)
[2022-04-27 16:18] VITALS: BP 121/70; PULSE 79; RESP 18; TEMP 98.8
== END 2022-04-27 16:51 | disposition home or self-care (01) ==
LOC: FINFUSION 13:46 → FM/S 13:47 → FINFUSION 16:51
PROVIDERS: ATTEND Internal Medicine Infectious Disease
DX: L03.116 Cellulitis of left lower limb (principal); F11.20 Opioid dependence, uncomplicated
CPT/HCPCS: 96365

== ENCOUNTER 2022-04-30 13:58 | Day surgery (SDC) | payer OTHER ==
[2022-04-30] MEDS ORDERED: cefTRIAXone 2 GM/100 ML BAG (PRE-DOCKED) IVPB SCH (14:30)
[2022-04-30 15:15] VITALS: BP 106/78; PULSE 69; RESP 14; TEMP 98.8
== END 2022-04-30 15:23 | disposition home or self-care (01) ==
LOC: FINFUSION 13:58 → FM/S 13:59 → FINFUSION 15:23
PROVIDERS: ATTEND Internal Medicine Infectious Disease
DX: K12.2 Cellulitis and abscess of mouth (principal)
CPT/HCPCS: 96365

== ENCOUNTER 2022-05-02 15:49 | Day surgery (SDC) | payer OTHER | END 2022-05-02 16:20 | disposition home or self-care (01) | LOC: FM/S 15:49 → FINFUSION 15:49 | PROVIDERS: ATTEND Internal Medicine Infectious Disease | DX: Z53.8 Procedure and treatment not carried out for other reasons (principal) ==

== ENCOUNTER 2022-05-08 10:48 | Observation (INO) | payer OTHER ==
[2022-05-08 10:54] VITALS: RESP 18; BMI 35.6
[2022-05-08] MEDS ORDERED: CEFTRIAXONE 2,000 MG in DEXTROSE 5%-WATER - 50 ML IVPB ONE (12:11)
[2022-05-08] MEDS ORDERED: CEFTRIAXONE 1 GM/50 ML BAG ONE (12:20)
[2022-05-08 13:20] LABS: BASO % 0.7 % (0-2.0); EOS % 2.4 % (0-4.5); HEMATOCRIT 36.4 % (35.4-49); HEMOGLOBIN 11.8 GM/dL (11.7-16.9); LYMPH % 24.3 % (8-40); MCH 27.8 pg (25.7-33.7); MCHC 32.4 g/dl (32.0-35.9); MEAN CELL VOLUME 86.1 fl (80-96); MEAN PLT VOLUME 7.6 fl (7.5-11.1); MONO % 6.8 % (3.8-10.2); NEUT % 65.8 % (42.8-82.8); PLATELET COUNT 270 10^3/uL (134-434); RBC 4.23 M/mm3 (4.00-5.60); RDW 15.5 % (11.9-15.9); WHITE BLOOD COUNT 8.9 K/mm3 (4.0-10.0)
[2022-05-08 13:29] LABS: ALBUMIN 3.4 g/dl (3.4-5.0); BLOOD UREA NITROGEN 11.8 mg/dL (7-18); CALCIUM 9.4 mg/dL (8.5-10.1)
[2022-05-08 13:33] LABS: CREATININE 0.8 mg/dL (0.55-1.3)
[2022-05-08 13:34] LABS: BILIRUBIN,TOTAL 0.3 mg/dL (0.2-1); TOT PROT 7.4 g/dl (6.4-8.2)
[2022-05-08 13:36] LABS: INR 1.13 (0.83-1.09)
[2022-05-08 13:38] LABS: ACTIVATED PTT 28.4 SECONDS (25.2-36.5)
[2022-05-08] MEDS ORDERED: ACETAMINOPHEN 325 MG TABLET (FP) PO PRN (15:46)
[2022-05-08] MEDS ORDERED: methaDONE HCL 40 MG DISPERSABLE TABLET PO ONE (19:47)
[2022-05-09] MEDS ORDERED: methaDONE HCL 40 MG DISPERSABLE TABLET PO SCH ×2 (06:00→10:00)
[2022-05-09] MEDS ORDERED: CEFTRIAXONE 1 GM/50 ML IVPB SCH (10:00)
[2022-05-09] MEDS: CEFTRIAXONE 2 GM in DEXTROSE 5%-WATER 100 ML IVPB SCH (14:07)
[2022-05-10] MEDS: CEFTRIAXONE 2 GM in DEXTROSE 5%-WATER 100 ML IVPB SCH (09:24)
[2022-05-10 09:55] VITALS: BP 149/85; PULSE 68; TEMP 97.8
[2022-05-10] MEDS ORDERED: ENOXAPARIN NA (PORCINE) 40 MG/0.4 ML DISP.SYRIN SQ SCH (10:00)
== END 2022-05-10 14:00 | disposition left against medical advice (07) ==
LOC: JER 10:48 → UNDOADMOB 11:49 → INTOOBSV 11:49 → JERBED 11:49 → J5S 21:02
PROVIDERS: ADMIT Internal Medicine; ATTEND Internal Medicine
PROC: 3E03329 Introduction of Other Anti-infective into Peripheral Vein, Percutaneous Approach (ICD-10-PCS; principal; 2022-05-08)
PROC: 3E023GC Introduction of Other Therapeutic Substance into Muscle, Percutaneous Approach (ICD-10-PCS; 2022-05-08)
DX: L03.116 Cellulitis of left lower limb (principal); E66.8 Other obesity; Z68.35 Body mass index [BMI] 35.0-35.9, adult; F17.210 Nicotine dependence, cigarettes, uncomplicated; F11.20 Opioid dependence, uncomplicated; Z79.2 Long term (current) use of antibiotics; F19.10 Other psychoactive substance abuse, uncomplicated
CPT/HCPCS: 0241U-QW; 36415; 73552-TC-LT-FY; 73560-TC-LT-FY; 73590-TC-LT-FY; 80053; 85025; 85610; 85730; 86850; 86900; 86901; 87040; 93005; 93010; 93971-TC; 96365; 96366; 96372; 99285-25; G0378

== ENCOUNTER 2022-05-13 16:22 | Day surgery (SDC) | payer OTHER ==
[2022-05-13] MEDS ORDERED: CEFTRIAXONE 2 GM in DEXTROSE 5%-WATER 100 ML IVPB ONE (16:45)
[2022-05-13 18:12] VITALS: BP 130/76; PULSE 85; RESP 18; TEMP 98.5
== END 2022-05-13 18:13 | disposition home or self-care (01) ==
LOC: FINFUSION 16:22 → FM/S 16:23 → FINFUSION 18:13
PROVIDERS: ATTEND Internal Medicine Infectious Disease
DX: L03.116 Cellulitis of left lower limb (principal); F11.20 Opioid dependence, uncomplicated
CPT/HCPCS: 96365

== ENCOUNTER 2022-05-15 20:03 | Day surgery (SDC) | payer OTHER ==
[2022-05-15] MEDS ORDERED: CEFTRIAXONE 2 GM in DEXTROSE 5%-WATER 100 ML IVPB SCH (20:45)
[2022-05-15 20:48] VITALS: BP 143/75; PULSE 75; RESP 18; TEMP 99
== END 2022-05-15 21:46 | disposition home or self-care (01) ==
LOC: FINFUSION 20:03 → FM/S 20:04 → FINFUSION 21:46
PROVIDERS: ATTEND Internal Medicine Infectious Disease
DX: L03.116 Cellulitis of left lower limb (principal); F11.20 Opioid dependence, uncomplicated
CPT/HCPCS: 96365

== ENCOUNTER 2022-06-05 10:50 | Inpatient (IN) | payer OTHER ==
[2022-06-05] MEDS ORDERED: CEFTRIAXONE 2 GM in DEXTROSE 5%-WATER - 50 ML IVPB ONE (11:35)
[2022-06-05] MEDS ORDERED: CEFTRIAXONE 2 GM/100 ML BAG IVPB ONE (11:56)
[2022-06-05 12:33] LABS: BASO % 0.8 % (0-2.0); EOS % 2.7 % (0-4.5); HEMATOCRIT 36.1 % (35.4-49); HEMOGLOBIN 12.1 GM/dL (11.7-16.9); LYMPH % 30.7 % (8-40); MCH 27.2 pg (25.7-33.7); MCHC 33.6 g/dl (32.0-35.9); MEAN CELL VOLUME 80.8 fl (80-96); MEAN PLT VOLUME 7.3 fl (7.5-11.1); NEUT % 56.8 % (42.8-82.8); PLATELET COUNT 254 10^3/uL (134-434); RBC 4.46 M/mm3 (4.00-5.60); RDW 15.5 % (11.9-15.9); WHITE BLOOD COUNT 5.9 K/mm3 (4.0-10.0)
[2022-06-05 12:53] LABS: BLOOD UREA NITROGEN 15.7 mg/dL (7-18); CALCIUM 8.7 mg/dL (8.5-10.1)
[2022-06-05 12:54] LABS: ALBUMIN 3.4 g/dl (3.4-5.0)
[2022-06-05 12:57] LABS: CREATININE 0.8 mg/dL (0.55-1.3)
[2022-06-05 12:58] LABS: BILIRUBIN,TOTAL 0.2 mg/dL (0.2-1); TOT PROT 7.2 g/dl (6.4-8.2)
[2022-06-05 13:07] LABS: ERYTHROCYTE SEDIMENTATION RATE 29 mm/hr (0-10)
[2022-06-05] MEDS ORDERED: KETOROLAC TROMETHAMINE 15 MG/ML VIAL IVPUSH PRN (13:31)
[2022-06-05] MEDS ORDERED: LACTATED RINGERS SOLUTION 1,000 ML IV SCH (13:45)
[2022-06-05 15:59] VITALS: BMI 35.4
[2022-06-06] MEDS ORDERED: methaDONE HCL 10 MG TABLET PO SCH (09:00)
[2022-06-06] MEDS: CEFTRIAXONE 2 GM in DEXTROSE 5%-WATER 100 ML IVPB SCH (09:10)
[2022-06-06] MEDS: ENOXAPARIN NA (PORCINE) 40 MG/0.4 ML DISP.SYRIN SQ SCH (09:13)
[2022-06-06] MEDS ORDERED: CEFTRIAXONE 2 GM in DEXTROSE 5%-WATER 100 ML IVPB ONE (10:00)
[2022-06-06] MEDS ORDERED: methaDONE HCL 10 MG TABLET (FOR DETOX USE ONLY) PO SCH (10:00)
[2022-06-06 10:22] LABS: INR 1.15 (0.83-1.09); PROTHROMBIN TIME (PATIENT) 13.3 SEC (9.7-13.0)
[2022-06-06 10:25] LABS: ACTIVATED PTT 30.9 SECONDS (25.2-36.5)
[2022-06-06 10:35] LABS: CALCIUM 8.7 mg/dL (8.5-10.1)
[2022-06-06 10:36] LABS: BLOOD UREA NITROGEN 14.5 mg/dL (7-18); MAGNESIUM 2.1 mg/dL (1.8-2.4)
[2022-06-06 10:39] LABS: CREATININE 0.8 mg/dL (0.55-1.3)
[2022-06-06 10:40] LABS: BILIRUBIN,TOTAL 0.2 mg/dL (0.2-1)
[2022-06-06 10:41] LABS: TOT PROT 6.5 g/dl (6.4-8.2)
[2022-06-06 10:42] LABS: PHOSPHOROUS 3.7 mg/dL (2.5-4.9)
[2022-06-07] MEDS: ENOXAPARIN NA (PORCINE) 40 MG/0.4 ML DISP.SYRIN SQ SCH (10:14)
[2022-06-07] MEDS: CEFTRIAXONE 2 GM in DEXTROSE 5%-WATER 100 ML IVPB SCH (11:50)
[2022-06-07] MEDS ORDERED: ACETAMINOPHEN 325 MG TABLET (FP) PO PRN (17:36)
[2022-06-08] MEDS: CEFTRIAXONE 2 GM in DEXTROSE 5%-WATER 100 ML IVPB SCH (10:07)
[2022-06-08] MEDS: ENOXAPARIN NA (PORCINE) 40 MG/0.4 ML DISP.SYRIN SQ SCH (10:07)
[2022-06-08 12:23] LABS: BASO % 0.7 % (0-2.0); EOS % 2.2 % (0-4.5); HEMATOCRIT 42.9 % (35.4-49); HEMOGLOBIN 14.1 GM/dL (11.7-16.9); LYMPH % 33.1 % (8-40); MCH 26.8 pg (25.7-33.7); MCHC 32.8 g/dl (32.0-35.9); MEAN CELL VOLUME 81.6 fl (80-96); MEAN PLT VOLUME 7.7 fl (7.5-11.1); MONO % 6.2 % (3.8-10.2); NEUT % 57.8 % (42.8-82.8); PLATELET COUNT 332 10^3/uL (134-434); RBC 5.26 M/mm3 (4.00-5.60); RDW 15.9 % (11.9-15.9); WHITE BLOOD COUNT 8.2 K/mm3 (4.0-10.0)
[2022-06-08 12:47] LABS: BLOOD UREA NITROGEN 16.8 mg/dL (7-18); MAGNESIUM 2.4 mg/dL (1.8-2.4)
[2022-06-08 12:50] LABS: CREATININE 0.9 mg/dL (0.55-1.3)
[2022-06-08 12:52] LABS: BILIRUBIN,TOTAL 0.3 mg/dL (0.2-1); TOT PROT 8.3 g/dl (6.4-8.2)
[2022-06-08 12:53] LABS: CALCIUM 10.1 mg/dL (8.5-10.1)
[2022-06-08 22:47] VITALS: RESP 20
[2022-06-09] MEDS: ENOXAPARIN NA (PORCINE) 40 MG/0.4 ML DISP.SYRIN SQ SCH (10:08)
[2022-06-09] MEDS: CEFTRIAXONE 2 GM in DEXTROSE 5%-WATER 100 ML IVPB SCH (10:08)
[2022-06-09 12:52] LABS: BASO % 0.9 % (0-2.0); HEMATOCRIT 43.1 % (35.4-49); LYMPH % 31.1 % (8-40); MCHC 32.5 g/dl (32.0-35.9); MEAN CELL VOLUME 79.8 fl (80-96); MEAN PLT VOLUME 7.8 fl (7.5-11.1); MONO % 7.3 % (3.8-10.2); NEUT % 58.7 % (42.8-82.8); PLATELET COUNT 286 10^3/uL (134-434); WHITE BLOOD COUNT 6.2 K/mm3 (4.0-10.0)
[2022-06-09 13:24] LABS: ALBUMIN 3.8 g/dl (3.4-5.0); BLOOD UREA NITROGEN 18.2 mg/dL (7-18); CALCIUM 9.5 mg/dL (8.5-10.1); MAGNESIUM 2.1 mg/dL (1.8-2.4)
[2022-06-09 13:25] LABS: CREATININE 0.9 mg/dL (0.55-1.3)
[2022-06-09 13:29] LABS: BILIRUBIN,TOTAL 0.3 mg/dL (0.2-1)
[2022-06-09 15:24] VITALS: BP 114/54; PULSE 94; TEMP 97.4
== END 2022-06-09 19:02 | disposition home or self-care (01) | DRG 721 ==
LOC: JER 10:50 → JERBED 13:57 → J8W 15:23
PROVIDERS: ADMIT Internal Medicine; ATTEND Nurse Practitioner Family
DX: T81.41XA Infection following a procedure, superficial incisional surgical site, initial encounter (principal); F11.20 Opioid dependence, uncomplicated; L03.116 Cellulitis of left lower limb; F17.210 Nicotine dependence, cigarettes, uncomplicated; Z79.2 Long term (current) use of antibiotics; Y83.8 Other surgical procedures as the cause of abnormal reaction of the patient, or of later complication, without mention of misadventure at the time of the procedure
CPT/HCPCS: 0241U-QW; 36415; 73552-TC-LT-FY; 73562-TC-LT-FY; 73590-TC-LT-FY; 73701-TC-RT; 80053; 82962; 83735; 84100; 85025; 85610; 85651; 85730; 86140; 93971-TC; 97116-GP; 97161-GP; 99285-25; Q9967

== ENCOUNTER 2022-06-10 18:19 | Day surgery (SDC) | payer OTHER ==
[2022-06-10 18:52] VITALS: BP 134/56; PULSE 68; RESP 18
[2022-06-10] MEDS ORDERED: CEFTRIAXONE 2 GM in DEXTROSE 5%-WATER 100 ML IVPB ONE (19:00)
[2022-06-10 19:06] VITALS: TEMP 97.9
== END 2022-06-10 19:21 | disposition home or self-care (01) ==
LOC: FINFUSION 18:19 → FM/S 18:21 → FINFUSION 19:21
PROVIDERS: ATTEND Internal Medicine Infectious Disease
DX: L03.116 Cellulitis of left lower limb (principal)
CPT/HCPCS: 96365

== ENCOUNTER 2022-06-11 17:21 | Day surgery (SDC) | payer OTHER ==
[2022-06-11] MEDS ORDERED: CEFTRIAXONE 2 GM in DEXTROSE 5%-WATER 100 ML IVPB ONE (17:45)
[2022-06-11 18:20] VITALS: BP 132/74; PULSE 76; RESP 18; TEMP 98.8
== END 2022-06-11 18:20 | disposition home or self-care (01) ==
LOC: FM/S 17:21 → FINFUSION 17:21
PROVIDERS: ATTEND Internal Medicine Infectious Disease
DX: L03.116 Cellulitis of left lower limb (principal)
CPT/HCPCS: 96365

== ENCOUNTER 2022-06-12 21:00 | Day surgery (SDC) | payer OTHER ==
[2022-06-12] MEDS ORDERED: CEFTRIAXONE 2 GM in DEXTROSE 5%-WATER 100 ML IVPB ONE (22:00)
[2022-06-12 22:25] VITALS: RESP 18; TEMP 97.9
[2022-06-12 22:56] VITALS: BP 146/96; PULSE 83
== END 2022-06-12 22:50 | disposition home or self-care (01) ==
LOC: FINFUSION 21:00 → FM/S 21:33 → FINFUSION 22:50
PROVIDERS: ATTEND Internal Medicine Infectious Disease
DX: L03.116 Cellulitis of left lower limb (principal)
CPT/HCPCS: 96365

== ENCOUNTER 2022-06-13 21:45 | Day surgery (SDC) | payer OTHER ==
[2022-06-13] MEDS ORDERED: CEFTRIAXONE 2 GM in DEXTROSE 5%-WATER 100 ML IVPB ONE (22:22)
[2022-06-13 22:53] VITALS: BP 132/77; PULSE 91; RESP 18; TEMP 98.6
== END 2022-06-13 23:08 | disposition home or self-care (01) ==
LOC: FINFUSION 21:45 → FM/S 21:47 → FINFUSION 23:08
PROVIDERS: ATTEND Internal Medicine Infectious Disease
DX: L03.116 Cellulitis of left lower limb (principal)
CPT/HCPCS: 96365

== ENCOUNTER 2022-06-14 20:18 | Day surgery (SDC) | payer OTHER ==
[2022-06-14] MEDS ORDERED: CEFTRIAXONE 2 GM in DEXTROSE 5%-WATER 100 ML IVPB SCH (20:45)
[2022-06-14 21:45] VITALS: BP 129/81; PULSE 89; RESP 18; TEMP 98.3
== END 2022-06-14 21:15 | disposition home or self-care (01) ==
LOC: FINFUSION 20:18 → FM/S 20:19 → FINFUSION 21:45
PROVIDERS: ATTEND Internal Medicine Infectious Disease
DX: L03.116 Cellulitis of left lower limb (principal)
CPT/HCPCS: 96365

== ENCOUNTER 2022-06-15 21:10 | Day surgery (SDC) | payer OTHER ==
[2022-06-15] MEDS: CEFTRIAXONE 2 GM in DEXTROSE 5%-WATER 100 ML IVPB ONE ×2 (21:33→21:35)
[2022-06-15 22:35] VITALS: BP 126/69; PULSE 75; RESP 16; TEMP 98.1
== END 2022-06-15 22:40 | disposition home or self-care (01) ==
LOC: FINFUSION 21:10 → FM/S 21:11 → FINFUSION 22:40
PROVIDERS: ATTEND Internal Medicine Infectious Disease
DX: L03.116 Cellulitis of left lower limb (principal)
CPT/HCPCS: 96365

== ENCOUNTER 2022-06-17 21:23 | Day surgery (SDC) | payer OTHER ==
[2022-06-17] MEDS ORDERED: CEFTRIAXONE 1 GM in DEXTROSE 5%-WATER - 50 ML IVPB ONE (21:45)
[2022-06-17] MEDS ORDERED: CEFTRIAXONE 2 GM in DEXTROSE 5%-WATER 100 ML IVPB ONE (22:00)
[2022-06-17 22:22] VITALS: BP 122/68; PULSE 99; RESP 17; TEMP 99
== END 2022-06-17 22:23 | disposition home or self-care (01) ==
LOC: FINFUSION 21:23 → FM/S 21:23 → FINFUSION 22:23
PROVIDERS: ATTEND Internal Medicine Infectious Disease
DX: L03.116 Cellulitis of left lower limb (principal)
CPT/HCPCS: 96365

== ENCOUNTER 2022-06-18 23:30 | Day surgery (SDC) | payer OTHER ==
[~2022-06-18 23:30] MED LIST: CEFTRIAXONE 2 GM in DEXTROSE 5%-WATER 100 ML IVPB ONE
[2022-06-19 00:28] VITALS: BP 131/65; PULSE 92; RESP 18; TEMP 99.2
== END 2022-06-19 00:46 | disposition home or self-care (01) ==
LOC: FM/S 23:30 → FINFUSION 23:30
PROVIDERS: ATTEND Internal Medicine Infectious Disease
DX: L03.116 Cellulitis of left lower limb (principal)
CPT/HCPCS: 96365

== ENCOUNTER 2022-06-20 21:39 | Day surgery (SDC) | payer OTHER ==
[2022-06-20] MEDS ORDERED: CEFTRIAXONE 2 GM in DEXTROSE 5%-WATER 100 ML IVPB ONE (22:00)
[2022-06-20 23:15] VITALS: BP 110/70; PULSE 70; RESP 18; TEMP 98
== END 2022-06-20 23:16 | disposition home or self-care (01) ==
LOC: FM/S 21:39 → FINFUSION 21:39
PROVIDERS: ATTEND Internal Medicine Infectious Disease
DX: L03.116 Cellulitis of left lower limb (principal)
CPT/HCPCS: 96365

== ENCOUNTER → 2022-06-22 | Day surgery (SDC) | payer OTHER | END | disposition home or self-care (01) | LOC: FINFUSION 23:45 | PROVIDERS: ATTEND Internal Medicine Infectious Disease | DX: L03.116 Cellulitis of left lower limb (principal) | CPT/HCPCS: 96365 ==

== ENCOUNTER 2023-02-22 18:50 | Emergency (ER) | payer OTHER ==
[2023-02-22 19:06] VITALS: TEMP 97.8; BMI 34.3
[2023-02-22] MEDS ORDERED: LACTATED RINGERS SOLUTION 1000 ML INFUS.BAG IV ONE (20:11)
[2023-02-22 21:39] VITALS: BP 126/78; PULSE 57; RESP 20
== END 2023-02-22 22:00 | disposition home or self-care (01) ==
LOC: JER 18:50
DX: R40.0 Somnolence (principal); E86.0 Dehydration; R19.7 Diarrhea, unspecified
CPT/HCPCS: 93005; 93010; 99283-25

== ENCOUNTER 2023-02-28 22:56 | Emergency (ER) | payer OTHER ==
[2023-02-28 23:04] VITALS: TEMP 98; BMI 34.3
[2023-03-01 00:30] VITALS: BP 109/71; PULSE 63; RESP 14
== END 2023-03-01 00:31 | disposition home or self-care (01) ==
LOC: JER 22:56
DX: F11.929 Opioid use, unspecified with intoxication, unspecified (principal)
CPT/HCPCS: 99282-25

== ENCOUNTER 2023-03-30 17:32 | Inpatient (IN) | payer OTHER ==
[2023-03-30 17:58] VITALS: BMI 32.5
[2023-03-30] MEDS ORDERED: IBUPROFEN 400 MG TABLET (FP) PO PRN (19:39)
[2023-03-30] MEDS ORDERED: MAGNESIUM HYDROX 2400MG/30ML ORAL SUSPENSION 30 ML CUP PO PRN (19:39)
[2023-03-30] MEDS ORDERED: BENZOCAINE/MENTHOL (CHLORASEPTIC ) LOZENGE MM PRN (19:39)
[2023-03-30] MEDS ORDERED: guaiFENesin 600 MG TABLET.ER (FP) PO PRN (19:39)
[2023-03-30] MEDS ORDERED: LOPERAMIDE HCL 2 MG CAPSULE PO PRN (19:39)
[2023-03-30] MEDS ORDERED: IBUPROFEN 600 MG TABLET (FP) PO PRN (19:39)
[2023-03-30] MEDS ORDERED: ACETAMINOPHEN 325 MG TABLET (FP) PO PRN (19:39)
[2023-03-30] MEDS ORDERED: BENZONATATE 200 MG CAPSULE PO PRN (19:39)
[2023-03-30] MEDS ORDERED: NALOXONE HCL (KLOXXADO) 8 MG SPRAY NS PRN (19:39)
[2023-03-30] MEDS ORDERED: COLLOIDAL OATMEAL 1 BAR EACH TP PRN (19:39)
[2023-03-30] MEDS ORDERED: POLYETHYLENE GLYCOL (HEALTHYLAX) 3350 17 GM PACKET PO PRN (19:39)
[2023-03-30] MEDS ORDERED: NALOXONE HCL 0.4 MG/ML VIAL IM PRN (19:39)
[2023-03-30] MEDS: THIAMINE HCL 100 MG TABLET (FP) PO SCH (21:25)
[2023-03-30] MEDS: MELATONIN 5 MG TABLETS PO SCH (21:25)
[2023-03-31] MEDS ORDERED: methaDONE HCL 10 MG TABLET PO SCH (09:45)
[2023-03-31] MEDS: PRENATAL VITAMINS W/ FOLIC ACID TABLET (FP) PO SCH (09:52)
[2023-03-31 09:54] LABS: HEMATOCRIT 43.3 % (35.4-49); HEMOGLOBIN 14.3 GM/dL (11.7-16.9); MCH 27.5 pg (25.7-33.7); MCHC 33.1 g/dl (32.0-35.9); MEAN CELL VOLUME 83.3 fl (80-96); MEAN PLT VOLUME 8.2 fl (7.5-11.1); PLATELET COUNT 279 10^3/uL (134-434); RDW 15.1 % (11.9-15.9); WHITE BLOOD COUNT 8.5 K/mm3 (4.0-10.0)
[2023-03-31 09:57] LABS: URINE APPEARANCE CLEAR; URINE BILIRUBIN NEGATIVE (NEGATIVE); URINE COLOR YELLOW; URINE GLUCOSE (UA) NEGATIVE (NEGATIVE); URINE KETONE NEGATIVE (NEGATIVE); URINE LEUK ESTERASE NEGATIVE (NEGATIVE); URINE NITRITE NEGATIVE (NEGATIVE); URINE PROTEIN NEGATIVE (NEGATIVE); URINE UROBILINOGEN 0.2 mg/dL (0.2-1.0)
[2023-03-31 11:37] LABS: CHLORIDE 101 mmol/L (98-107); POTASSIUM 4.4 mmol/L (3.5-5.1); SODIUM 138 mmol/L (136-145)
[2023-03-31 11:52] LABS: ANION GAP 9 mmol/L (4-13); BLOOD UREA NITROGEN 14.5 mg/dL (7-18); CALCIUM 9.5 mg/dL (8.5-10.1); CO2 28 mmol/L (21-32); GLUCOSE,RANDOM 95 mg/dL (74-106)
[2023-03-31 11:55] LABS: SGOT/AST 14 U/L (15-37)
[2023-03-31 11:57] LABS: BILIRUBIN,TOTAL 0.5 mg/dL (0.2-1); SGPT/ALT 19 U/L (13-61)
[2023-03-31 11:58] LABS: ALK PHOS 113 U/L (45-117)
[2023-03-31] MEDS: THIAMINE HCL 100 MG TABLET (FP) PO SCH (21:28)
[2023-03-31] MEDS: MELATONIN 5 MG TABLETS PO SCH (21:28)
[2023-04-01] MEDS: PRENATAL VITAMINS W/ FOLIC ACID TABLET (FP) PO SCH (11:17)
[2023-04-01] MEDS: THIAMINE HCL 100 MG TABLET (FP) PO SCH (21:04)
[2023-04-01] MEDS: MELATONIN 5 MG TABLETS PO SCH (21:04)
[2023-04-02] MEDS: PRENATAL VITAMINS W/ FOLIC ACID TABLET (FP) PO SCH (09:42)
[2023-04-02] MEDS: THIAMINE HCL 100 MG TABLET (FP) PO SCH (21:21)
[2023-04-02] MEDS: MELATONIN 5 MG TABLETS PO SCH (21:21)
[2023-04-03] MEDS: PRENATAL VITAMINS W/ FOLIC ACID TABLET (FP) PO SCH (10:12)
[2023-04-03] MEDS: THIAMINE HCL 100 MG TABLET (FP) PO SCH (21:32)
[2023-04-03] MEDS: MELATONIN 5 MG TABLETS PO SCH (21:32)
[2023-04-04] MEDS: PRENATAL VITAMINS W/ FOLIC ACID TABLET (FP) PO SCH (09:37)
[2023-04-04] MEDS: MELATONIN 5 MG TABLETS PO SCH (21:31)
[2023-04-04] MEDS: THIAMINE HCL 100 MG TABLET (FP) PO SCH (21:31)
[2023-04-05] MEDS: PRENATAL VITAMINS W/ FOLIC ACID TABLET (FP) PO SCH (10:08)
[2023-04-05] MEDS: MELATONIN 5 MG TABLETS PO SCH (21:17)
[2023-04-05] MEDS: THIAMINE HCL 100 MG TABLET (FP) PO SCH (21:17)
[2023-04-06] MEDS: PRENATAL VITAMINS W/ FOLIC ACID TABLET (FP) PO SCH (09:30)
[2023-04-06] MEDS: MELATONIN 5 MG TABLETS PO SCH (21:39)
[2023-04-06] MEDS: THIAMINE HCL 100 MG TABLET (FP) PO SCH (21:39)
[2023-04-07] MEDS: PRENATAL VITAMINS W/ FOLIC ACID TABLET (FP) PO SCH (10:12)
[2023-04-07] MEDS: MELATONIN 5 MG TABLETS PO SCH (21:02)
[2023-04-07] MEDS: THIAMINE HCL 100 MG TABLET (FP) PO SCH (21:02)
[2023-04-07] MEDS: MAG HYDROX/AL HYDROX/SIMETH 30 ML UNIT-DOSE CUP PO PRN (21:03)
[2023-04-08] MEDS: PRENATAL VITAMINS W/ FOLIC ACID TABLET (FP) PO SCH (09:27)
[2023-04-08] MEDS: MAG HYDROX/AL HYDROX/SIMETH 30 ML UNIT-DOSE CUP PO PRN (13:09)
[2023-04-08] MEDS: MELATONIN 5 MG TABLETS PO SCH (21:37)
[2023-04-08] MEDS: THIAMINE HCL 100 MG TABLET (FP) PO SCH (21:37)
[2023-04-09] MEDS: PRENATAL VITAMINS W/ FOLIC ACID TABLET (FP) PO SCH (10:32)
[2023-04-09] MEDS: MELATONIN 5 MG TABLETS PO SCH (21:08)
[2023-04-09] MEDS: THIAMINE HCL 100 MG TABLET (FP) PO SCH (21:08)
[2023-04-10] MEDS: PRENATAL VITAMINS W/ FOLIC ACID TABLET (FP) PO SCH (09:33)
[2023-04-10] MEDS: THIAMINE HCL 100 MG TABLET (FP) PO SCH (21:24)
[2023-04-10] MEDS: MELATONIN 5 MG TABLETS PO SCH (21:24)
[2023-04-11] MEDS: PRENATAL VITAMINS W/ FOLIC ACID TABLET (FP) PO SCH (10:19)
[2023-04-11] MEDS: MELATONIN 5 MG TABLETS PO SCH (21:04)
[2023-04-11] MEDS: THIAMINE HCL 100 MG TABLET (FP) PO SCH (21:04)
[2023-04-12 06:49] VITALS: TEMP 96.8
[2023-04-12] MEDS: PRENATAL VITAMINS W/ FOLIC ACID TABLET (FP) PO SCH (09:39)
[2023-04-12] MEDS: MELATONIN 5 MG TABLETS PO SCH (21:24)
[2023-04-12] MEDS: THIAMINE HCL 100 MG TABLET (FP) PO SCH (21:24)
[2023-04-13 07:13] VITALS: BP 144/84; PULSE 84; RESP 17
[2023-04-13] MEDS: PRENATAL VITAMINS W/ FOLIC ACID TABLET (FP) PO SCH (09:11)
== END 2023-04-13 09:13 | disposition home or self-care (01) | DRG 772 ==
LOC: YASAS 17:32 → Y3E 19:50 → Y3W 19:53
PROVIDERS: ADMIT Allergy & Immunology; ATTEND Psychiatry & Neurology Pain Medicine
PROC: HZ42ZZZ Group Counseling for Substance Abuse Treatment, Cognitive-Behavioral (ICD-10-PCS; principal; 2023-03-30)
DX: F11.20 Opioid dependence, uncomplicated (principal); F17.210 Nicotine dependence, cigarettes, uncomplicated; F19.259 Other psychoactive substance dependence with psychoactive substance-induced psychotic disorder, unspecified
CPT/HCPCS: 36415; 80053; 80307; 81003; 85027; 86780; 87635

== ENCOUNTER 2023-07-21 12:30 | Emergency (ER) | payer OTHER ==
[2023-07-21 12:58] VITALS: BP 109/69; PULSE 93; RESP 19; TEMP 98.3; BMI 32.5
[2023-07-21] MEDS ORDERED: methaDONE HCL 40 MG DISPERSABLE TABLET ONE (13:41)
[2023-07-21] MEDS ORDERED: methaDONE HCL 10 MG TABLET ONE (13:42)
[2023-07-21] MEDS: methaDONE HCL 10 MG TABLET PO ONE (13:47)
== END 2023-07-21 14:40 | disposition home or self-care (01) ==
LOC: JERFT 12:30
DX: Z76.0 Encounter for issue of repeat prescription (principal); B00.9 Herpesviral infection, unspecified; Z91.138 Patient's unintentional underdosing of medication regimen for other reason
CPT/HCPCS: 99283-25

== ENCOUNTER 2024-01-07 11:12 | Emergency (ER) | payer OTHER ==
[2024-01-07 11:22] VITALS: BP 125/96; PULSE 70; RESP 18; TEMP 98.8; BMI 31.2
[2024-01-07] MEDS ORDERED: IBUPROFEN 600 MG TABLET (FP) PO ONE (14:09)
[2024-01-07] MEDS ORDERED: CEPHALEXIN MONOHYDRATE 500 MG CAPSULE (UD) ONE (14:09)
[2024-01-07] MEDS ORDERED: SULFAMETHOXAZOLE/TRIMETHOPRIM 800MG/160MG D.S. TABLET ONE (14:10)
[2024-01-07] MEDS: SULFAMETHOXAZOLE/TRIMETHOPRIM 800MG/160MG D.S. TABLET PO ONE (14:11)
[2024-01-07] MEDS: CEPHALEXIN MONOHYDRATE 500 MG CAPSULE (UD) PO ONE (14:11)
[2024-01-07] MEDS: IBUPROFEN 600 MG TABLET (FP) PO ONE (14:11)
== END 2024-01-07 14:34 | disposition home or self-care (01) ==
LOC: JERFT 11:12
DX: T81.31XA Disruption of external operation (surgical) wound, not elsewhere classified, initial encounter (principal); Y83.9 Surgical procedure, unspecified as the cause of abnormal reaction of the patient, or of later complication, without mention of misadventure at the time of the procedure
CPT/HCPCS: 99283-25